=== PATIENT | male | born 1950 | race Caucasian/White ===

== ENCOUNTER 2020-02-27 16:41 | Emergency (ER) | payer MEDICARE, OTHER ==
--- NOTE | 2020-02-27 17:37 | ED ---
General Adult HPI - General Chief complaint: Shortness of Breath Stated complaint: SOB Time Seen by Provider: 02/27/20 17:07 Source: patient Mode of arrival: ambulatory Limitations: no limitations - History of Present Illness Initial comments: Dictation was produced using [employer] dictation software. please excuse any grammatical, word or spelling errors. This patient was cared for during a federal and state declared state of emergency secondary to Covid 19 Chief Complaint: 69-year-old male presents with weakness, cough History of Present Illness: Patient is 69-year-old male who has past medical history of CVA, hypertension and remote history of smoking. He presents today with 4 days of symptoms of cough, chest pain. Patient also has generalized weakness. He came to the emergency department today because he had severe diarr hea. Patient states his diarrhea is nonbilious nonbloody and looks like water. Patient is exposed to. His family members were tested positive for rotavirus. Patient has any short of breath. He does report some mild sharp chest pain and congestion. He does have a cough does not productive sputum. The ROS documented in this emergency department record has been reviewed and confirmed by me. Those systems with pertinent positive or negative responses have been documented in the HPI. All other systems are other negative and/or noncontributory. PHYSICAL EXAM: General Impression: Alert and oriented x3, not in acute distress HEENT: Normocephalic atraumatic, extra-ocular movements intact, pupils equal and reactive to light bilaterally, mucous membranes moist. Cardiovascular: Heart regular rate and rhythm Chest: Able to complete full sentences, no retractions, no tachypnea Abdomen: abdomen soft, non-tender, non-distended, no organomegaly Musculoskeletal: Pulses present and equal in all extremities, no peripheral edema Motor: no focal deficits noted Neurological: CN II-XII grossly intact, no focal motor or sensory deficits noted, no truncal ataxia Skin: Intact with no visualized rashes Psych: Normal affect and mood ED course: 69 y Old male presents with constitutional symptoms. Considering he has family members that he is exposed to selective. Patient has chronic virus. Vital signs upon arrival shows her to 100.2, oxygen of 94% on room air, rest of vital signs within acceptable limits. Laboratory evaluation obtained. CBC is unremarkable. Coag panel is negative. D-dimer is elevated 1.11. Sodium was 129, rest of metabolic panel are within acceptable limits. His LDH is elevated 1124, CRP is 37.5. Patient's rapid coronavirus test is positive. Chest x-ray shows no radiographically evidence of significant infiltrate. Patient is not hypoxic. He is not showing signs of respiratory distress. Clinical presentation consistent with Covid 19. Disposition options were discussed with patient. Is recommended that patient be admitted due to his age and comorbidi ties. However he wants to be discharged because he feels like he cannot get comfortable at home. Discussed with patient that the housing manager being admitted to the hospital is that if he does become hypoxic in acute phase he is in a medical facility where he can be treated immediately and given supplemental oxygen or any other therapies. Patient states that he thinks he may have a pulse oximeter at home and he also has his family at home. He was discharged and does have transportation available to him to come back to the emergency department if he starts to get worse. Patient is more agreeable with being discharged is a disposition as post sustaining be admitted. Patient given 6 more grams of Decadron. Patient will be discharged. EKG interpretation: Ventricular rate, normal sinus rhythm,. Interval 182, QRS 70, QTc 447. No HI prolongation, no QTC prolongation, no ST or T-wave changes noted. Overall, this EKG is unremarkable - Related Data Allergies Allergy/AdvReac Type Severity Reaction Status Date / Time No Known Allergies Allergy Verified 02/27/20 17:06 Review of Systems ROS Statement: Those systems with pertinent positive or pertinent negative responses have been documented in the HPI. ROS Other: All systems not noted in ROS Statement are negative. Past Medical History Past Medical History: CVA/TIA, Hypertension History of Any Multi-Drug Resistant Organisms: None Reported Past Surgical History: No Surgical Hx Reported Past Psychological History: No Psychological Hx Reported Smoking Status: Never smoker Past Alcohol Use History: None Reported Past Drug Use History: None Reported General Exam Limitations: no limitations Course Vital Signs 02/27/20 02/27/20 02/27/20 17:00 17:20 17:51 Temperature 100.2 F H 101.6 F H Pulse Rate 83 Respiratory 20 20 Rate Blood Pressure 116/70 O2 Sat by Pulse 94 L Oximetry 02/27/20 02/27/20 18:33 19:30 Temperature Pulse Rate 82 74 Respiratory 18 18 Rate Blood Pressure 125/77 100/71 O2 Sat by Pulse 96 97 Oximetry Medical Decision Making - Lab Data Result diagrams: 02/27/20 18:02 02/27/20 18:02 Lab Results 02/27/20 02/27/20 02/27/20 Range/Units 18:02 18:02 18:02 WBC 7.4 (3.8-10.6) k/uL RBC 5.26 (4.30-5.90) m/uL Hgb 15.7 (13.0-17.5) gm/dL Hct 46.2 (39.0-53.0) % MCV 87.9 (80.0-100.0) fL MCH 29.9 (25.0-35.0) pg MCHC 34.1 (31.0-37.0) g/dL RDW 13.3 (11.5-15.5) % Plt Count 146 L (150-450) k/uL MPV 9.1 Neutrophils % 77 % Lymphocytes % 17 % Monocytes % 4 % Eosinophils % 1 % Basophils % 1 % Neutrophils # 5.7 (1.3-7.7) k/uL Lymphocytes # 1.3 (1.0-4.8) k/uL Monocytes # 0.3 (0-1.0) k/uL Eosinophils # 0.0 (0-0.7) k/uL Basophils # 0.1 (0-0.2) k/uL PT 10.5 (9.0-12.0) sec INR 1.0 (<1.2) APTT 22.9 (22.0-30.0) sec D-Dimer 1.11 H (<0.60) mg/L FEU Sodium 129 L (137-145) mmol/L Potassium 4.7 (3.5-5.1) mmol/L Chloride 100 (98-107) mmol/L Carbon Dioxide 18 L (22-30) mmol/L Anion Gap 11 mmol/L BUN 24 H (9-20) mg/dL Creatinine 1.14 (0.66-1.25) mg/dL Est GFR (CKD-EPI)AfAm 76 (>60 ml/min/1.73 sqM) Est GFR (CKD-EPI)NonAf 66 (>60 ml/min/1.73 sqM) Glucose 138 H (74-99) mg/dL Plasma Lactic Acid Rivas (0.7-2.0) mmol/L Calcium 8.6 (8.4-10.2) mg/dL Magnesium 1.9 (1.6-2.3) mg/dL Total Bilirubin 0.7 (0.2-1.3) mg/dL AST 56 (17-59) U/L ALT 33 (4-49) U/L Alkaline Phosphatase 58 (38-126) U/L Lactate Dehydrogenase 1124 H (313-618) U/L C-Reactive Protein 37.5 H (<10.0) mg/L Total Protein 6.8 (6.3-8.2) g/dL Albumin 3.8 (3.5-5.0) g/dL Coronavirus (PCR) (Not Detectd) 02/27/20 02/27/20 Range/Units 18:02 18:02 WBC (3.8-10.6) k/uL RBC (4.30-5.90) m/uL Hgb (13.0-17.5) gm/dL Hct (39.0-53.0) % MCV (80.0-100.0) fL MCH (25.0-35.0) pg MCHC (31.0-37.0) g/dL RDW (11.5-15.5) % Plt Count (150-450) k/uL MPV Neutrophils % % Lymphocytes % % Monocytes % % Eosinophils % % Basophils % % Neutrophils # (1.3-7.7) k/uL Lymphocytes # (1.0-4.8) k/uL Monocytes # (0-1.0) k/uL Eosinophils # (0-0.7) k/uL Basophils # (0-0.2) k/uL PT (9.0-12.0) sec INR (<1.2) APTT (22.0-30.0) sec D-Dimer (<0.60) mg/L FEU Sodium (137-145) mmol/L Potassium (3.5-5.1) mmol/L Chloride (98-107) mmol/L Carbon Dioxide (22-30) mmol/L Anion Gap mmol/L BUN (9-20) mg/dL Creatinine (0.66-1.25) mg/dL Est GFR (CKD-EPI)AfAm (>60 ml/min/1.73 sqM) Est GFR (CKD-EPI)NonAf (>60 ml/min/1.73 sqM) Glucose (74-99) mg/dL Plasma Lactic Acid Rivas 1.6 (0.7-2.0) mmol/L Calcium (8.4-10.2) mg/dL Magnesium (1.6-2.3) mg/dL Total Bilirubin (0.2-1.3) mg/dL AST (17-59) U/L ALT (4-49) U/L Alkaline Phosphatase (38-126) U/L Lactate Dehydrogenase (313-618) U/L C-Reactive Protein (<10.0) mg/L Total Protein (6.3-8.2) g/dL Albumin (3.5-5.0) g/dL Coronavirus (PCR) Detected A (Not Detectd) Disposition Clinical Impression: COVID-19 Disposition: HOME SELF-CARE Condition: Fair Instructions (If sedation given, give patient instructions): Viral Pneumonia (ED) Additional Instructions: Today you were evaluated for symptoms consistent with upper respiratory infection. There is concern that perhaps your symptomatology may represent Covid 19. Your are stable for discharge, however it is instructed to to seek immediate medical attention especially if you develop worsening symptoms especially respiratory distress. In the meantime please remain in quarantine for 14 days. For any other questions please contact Jacqui for here in emergency department or [facility] at [phone] Is patient prescribed a controlled substance at d/c from ED?: No Referrals: None,Stated [Primary Care Provider] - 1-2 days Time of Disposition: 19:49
[2020-02-27 17:51] VITALS: TEMP 101.6
[2020-02-27] MEDS ORDERED: ACETAMINOPHEN TAB 500 MG TAB PO STA (17:52)
[2020-02-27 18:17] LABS: Basophils # (A) 0.1 k/uL (0-0.2); Basophils % (A) 1 %; Eosinophils % (A) 1 %; HCT 46.2 % (39.0-53.0); HGB 15.7 gm/dL (13.0-17.5); Lymphocytes # (A) 1.3 k/uL (1.0-4.8); Lymphocytes % (A) 17 %; MCH 29.9 pg (25.0-35.0); MCHC 34.1 g/dL (31.0-37.0); MCV 87.9 fL (80.0-100.0); Mean Platelet Volume 9.1; Monocytes # (A) 0.3 k/uL (0-1.0); Monocytes % (A) 4 %; Neutrophils # (A) 5.7 k/uL (1.3-7.7); Neutrophils % (A) 77 %; Platelet Count 146 k/uL (150-450); RBC 5.26 m/uL (4.30-5.90); RDW 13.3 % (11.5-15.5); WBC 7.4 k/uL (3.8-10.6)
[2020-02-27 18:30] LABS: Partial Thromboplastin Time 22.9 sec (22.0-30.0); Prothrombin Time 10.5 sec (9.0-12.0)
[2020-02-27 18:31] LABS: Albumin 3.8 g/dL (3.5-5.0); Calcium 8.6 mg/dL (8.4-10.2); Magnesium 1.9 mg/dL (1.6-2.3); Potassium 4.7 mmol/L (3.5-5.1); Total Bilirubin 0.7 mg/dL (0.2-1.3); Total Protein 6.8 g/dL (6.3-8.2)
[2020-02-27 18:33] VITALS: RESP 18
[2020-02-27 18:33] LABS: D-Dimer 1.11 mg/L FEU (<0.60)
--- NOTE | 2020-02-27 18:41 | XR ---
EXAMINATION TYPE: XR chest 1V portable DATE OF EXAM: 02/27/2020 COMPARISON: NONE HISTORY: Cough and fever. TECHNIQUE: Single frontal view of the chest is obtained. FINDINGS: There is no focal air space opacity, pleural effusion, or pneumothorax seen. The cardiac silhouette size is within normal limits. The osseous structures are intact. IMPRESSION: No radiographic evidence of significant infiltrate.
[2020-02-27 18:51] LABS: C Reactive Protein 37.5 mg/L (<10.0)
[2020-02-27] MEDS ORDERED: DEXAMETHASONE SOD PHOSPHATE 10 MG/ML 1 ML VIAL IV STA (19:47)
[2020-02-27 20:01] VITALS: BP 103/79; PULSE 73
== END 2020-02-27 20:13 | disposition home or self-care (01) ==
LOC: EC 16:41
DX: U07.1 COVID-19 (principal); R79.1 Abnormal coagulation profile; R74.02 Elevation of levels of lactic acid dehydrogenase [LDH]; R79.89 Other specified abnormal findings of blood chemistry; I10 Essential (primary) hypertension; Z86.73 Personal history of transient ischemic attack (TIA), and cerebral infarction without residual deficits
CPT/HCPCS: 36415; 93005; 85379; 80053; 83605; 83615; 83735; 85025; 85610; 85730; 86140; 87040; 84145; 87635; 71045; 99285; 96374; J1100

== ENCOUNTER 2020-02-28 21:40 | Inpatient (IN) | payer MEDICARE, OTHER ==
[2020-02-28] MEDS ORDERED: LORazepam 2 MG/ML INJ IV STA (22:20)
[2020-02-28] MEDS ORDERED: ALBUTEROL HFA INHALER INHALATION STA (22:22)
[2020-02-28] MEDS ORDERED: ACETAMINOPHEN TAB 500 MG TAB PO STA (22:22)
[2020-02-28] MEDS ORDERED: SODIUM CHLORIDE 0.9% 1,000 ML IV ONE (22:22)
[2020-02-28 22:41] LABS: Basophils # (A) 0.1 k/uL (0-0.2); Basophils % (A) 1 %; Eosinophils % (A) 0 %; HCT 45.7 % (39.0-53.0); HGB 15.5 gm/dL (13.0-17.5); Lymphocytes % (A) 7 %; MCH 29.8 pg (25.0-35.0); MCHC 33.9 g/dL (31.0-37.0); MCV 87.8 fL (80.0-100.0); Mean Platelet Volume 9.9; Monocytes # (A) 0.4 k/uL (0-1.0); Monocytes % (A) 3 %; Neutrophils # (A) 12.4 k/uL (1.3-7.7); Neutrophils % (A) 88 %; Platelet Count 171 k/uL (150-450); RBC 5.21 m/uL (4.30-5.90); RDW 13.3 % (11.5-15.5)
--- NOTE | 2020-02-28 22:45 | ED ---
General Adult HPI - General Chief complaint: Shortness of Breath Stated complaint: COVID + Time Seen by Provider: 02/28/20 22:13 Source: patient, EMS, RN notes reviewed, old records reviewed Mode of arrival: EMS Limitations: no limitations - History of Present Illness Initial comments: Pt is a 69 [id number] male presents raise from same shortness of breath and anxiety. He tested positive for coronal virus infection yesterday. Patient reports that he does not wear oxygen. Denies any history of smoking. Patient reports had no nausea or vomiting. His main complaint is chest discomfort with breathing. Patient reports his cough has been nonproductive. Patient has had no Motrin or Tylenol yet today. - Related Data Home Medications Medication Instructions Recorded Confirmed Acetaminophen Tab [Tylenol Tab] 1,000 mg PO Q6H PRN 02/28/20 02/28/20 Ascorbic Acid [Vitamin C] 1,000 mg PO HS 02/28/20 02/28/20 Aspirin EC [Ecotrin] 325 mg PO HS 02/28/20 02/28/20 atenoloL [Atenolol] 25 mg PO HS 02/28/20 02/28/20 diphenhydrAMINE [Benadryl] 25 mg PO HS PRN 02/28/20 02/28/20 Allergies Allergy/AdvReac Type Severity Reaction Status Date / Time iodine Allergy Itching Verified 02/28/20 22:43 Iodine and Iodide Containing Allergy Itching Verified 02/28/20 22:43 Produc Oocztql-Vtt-Bbw Reductase Allergy Anaphylaxis Verified 02/28/20 22:43 Inhibitor Review of Systems ROS Statement: Those systems with pertinent positive or pertinent negative responses have been documented in the HPI. ROS Other: All systems not noted in ROS Statement are negative. Past Medical History Past Medical History: CVA/TIA, Hypertension History of Any Multi-Drug Resistant Organisms: None Reported Past Surgical History: No Surgical Hx Reported Past Psychological History: No Psychological Hx Reported Smoking Status: Never smoker Past Alcohol Use History: None Reported Past Drug Use History: None Reported General Exam - General Exam Comments Initial Comments: 69-year-old male. Patient is placed on 6 L of oxygen due to shortness of breath and is satting at 98%. Patient was found to be at 88% on room air. Patient is anxious. Limitations: no limitations General appearance: alert, in no apparent distress, anxious Head exam: Present: atraumatic, normocephalic, normal inspection Eye exam: Present: normal appearance, PERRL, EOMI. Absent: scleral icterus, conjunctival injection, periorbital swelling ENT exam: Present: normal exam, mucous membranes moist Neck exam: Present: normal inspection. Absent: tenderness, meningismus, lymphadenopathy Respiratory exam: Present: normal lung sounds bilaterally. Absent: respiratory distress, wheezes, rales, rhonchi, stridor Cardiovascular Exam: Present: regular rate, normal rhythm, normal heart sounds. Absent: systolic murmur, diastolic murmur, rubs, gallop, clicks GI/Abdominal exam: Present: soft, normal bowel sounds. Absent: distended, tenderness, guarding, rebound, rigid Extremities exam: Present: normal inspection, full ROM, normal capillary refill. Absent: tenderness, pedal edema, joint swelling, calf tenderness Back exam: Present: normal inspection Neurological exam: Present: alert, oriented X3, CN II-XII intact Psychiatric exam: Present: normal affect, normal mood Course Vital Signs 02/28/20 02/28/20 02/28/20 21:41 21:53 23:31 Temperature 99.6 F Pulse Rate 95 97 Respiratory 18 20 20 Rate Blood Pressure 119/77 104/81 O2 Sat by Pulse 96 98 Oximetry Medical Decision Making - Medical Decision Making This patient's a 61-year-old male diagnosed with kraus virus infection yesterday. Patient arrived to the emergency department anxious and very short of breath. He was placed on 6 L of oxygen and has been satting at 98%. Also is hyperventilating somewhat due to anxiety. After Ativan his breathing did somewhat improve. When oxygen was removed she did sat at a low 88%. Patient's labwork was reviewed to show increasing d-dimer. Patient had computed tomography scan completed today which shows no evidence of pulmonary embolus about multiple ground glass opacities consistent with kraus virus infection. Patient will be started on IV fluids and will admit the Patient for kraus virus protocol and will be started on Rocephin. I discussed the case with Dr. Milton Gilliam discussed the case with [facility]. - Lab Data Result diagrams: 02/28/20 22:28 02/28/20 22:28 Lab Results 02/28/20 02/28/20 02/28/20 Range/Units 22:28 22:28 22:28 WBC 14.0 H (3.8-10.6) k/uL RBC 5.21 (4.30-5.90) m/uL Hgb 15.5 (13.0-17.5) gm/dL Hct 45.7 (39.0-53.0) % MCV 87.8 (80.0-100.0) fL MCH 29.8 (25.0-35.0) pg MCHC 33.9 (31.0-37.0) g/dL RDW 13.3 (11.5-15.5) % Plt Count 171 (150-450) k/uL MPV 9.9 Neutrophils % 88 % Lymphocytes % 7 % Monocytes % 3 % Eosinophils % 0 % Basophils % 1 % Neutrophils # 12.4 H (1.3-7.7) k/uL Lymphocytes # 1.0 (1.0-4.8) k/uL Monocytes # 0.4 (0-1.0) k/uL Eosinophils # 0.0 (0-0.7) k/uL Basophils # 0.1 (0-0.2) k/uL PT 10.8 (9.0-12.0) sec INR 1.0 (<1.2) APTT 18.4 L (22.0-30.0) sec D-Dimer 1.62 H (<0.60) mg/L FEU Sodium 132 L (137-145) mmol/L Potassium 4.6 (3.5-5.1) mmol/L Chloride 101 (98-107) mmol/L Carbon Dioxide 17 L (22-30) mmol/L Anion Gap 14 mmol/L BUN 31 H (9-20) mg/dL Creatinine 1.09 (0.66-1.25) mg/dL Est GFR (CKD-EPI)AfAm 80 (>60 ml/min/1.73 sqM) Est GFR (CKD-EPI)NonAf 69 (>60 ml/min/1.73 sqM) Glucose 154 H (74-99) mg/dL Lactic Ac Sepsis Rflx Plasma Lactic Acid Rivas (0.7-2.0) mmol/L Calcium 8.6 (8.4-10.2) mg/dL Magnesium 1.9 (1.6-2.3) mg/dL Total Bilirubin 0.8 (0.2-1.3) mg/dL AST 50 (17-59) U/L ALT 31 (4-49) U/L Alkaline Phosphatase 60 (38-126) U/L Lactate Dehydrogenase 1339 H (313-618) U/L C-Reactive Protein 33.8 H (<10.0) mg/L Total Protein 6.8 (6.3-8.2) g/dL Albumin 3.7 (3.5-5.0) g/dL 02/28/20 02/28/20 Range/Units 22:28 23:02 WBC (3.8-10.6) k/uL RBC (4.30-5.90) m/uL Hgb (13.0-17.5) gm/dL Hct (39.0-53.0) % MCV (80.0-100.0) fL MCH (25.0-35.0) pg MCHC (31.0-37.0) g/dL RDW (11.5-15.5) % Plt Count (150-450) k/uL MPV Neutrophils % % Lymphocytes % % Monocytes % % Eosinophils % % Basophils % % Neutrophils # (1.3-7.7) k/uL Lymphocytes # (1.0-4.8) k/uL Monocytes # (0-1.0) k/uL Eosinophils # (0-0.7) k/uL Basophils # (0-0.2) k/uL PT (9.0-12.0) sec INR (<1.2) APTT (22.0-30.0) sec D-Dimer (<0.60) mg/L FEU Sodium (137-145) mmol/L Potassium (3.5-5.1) mmol/L Chloride (98-107) mmol/L Carbon Dioxide (22-30) mmol/L Anion Gap mmol/L BUN (9-20) mg/dL Creatinine (0.66-1.25) mg/dL Est GFR (CKD-EPI)AfAm (>60 ml/min/1.73 sqM) Est GFR (CKD-EPI)NonAf (>60 ml/min/1.73 sqM) Glucose (74-99) mg/dL Lactic Ac Sepsis Rflx Y Plasma Lactic Acid Rivas 3.5 H* (0.7-2.0) mmol/L Calcium (8.4-10.2) mg/dL Magnesium (1.6-2.3) mg/dL Total Bilirubin (0.2-1.3) mg/dL AST (17-59) U/L ALT (4-49) U/L Alkaline Phosphatase (38-126) U/L Lactate Dehydrogenase (313-618) U/L C-Reactive Protein (<10.0) mg/L Total Protein (6.3-8.2) g/dL Albumin (3.5-5.0) g/dL 02/28/20 22:46 EKG shows normal sinus rhythm normal EKG. Ventricular rate 91 bpm. Verbal is 176 no seconds. QS ration 76 most seconds. QT QTc is 350/440 ms. - Radiology Data Radiology results: report reviewed CT shows no pulmonary embolism. Ground glass opacities scattered throughout lung rigors and representing multifocal pneumonia. Pulmonary edema could potentially similar appearance. Bilateral lymphadenopathy reactive. Mild interstitial peripheral pneumonia slightly worse than yesterday. Disposition Clinical Impression: COVID-19, Hypoxia, Pneumonia, Anxiety Disposition: ADMITTED IP TO THIS HOSP Condition: Stable Is patient prescribed a controlled substance at d/c from ED?: No Referrals: None,Stated [Primary Care Provider] - 1-2 days Time of Disposition: 01:27
[2020-02-28 22:51] LABS: Albumin 3.7 g/dL (3.5-5.0); C Reactive Protein 33.8 mg/L (<10.0); Calcium 8.6 mg/dL (8.4-10.2); Magnesium 1.9 mg/dL (1.6-2.3); Potassium 4.6 mmol/L (3.5-5.1); Total Bilirubin 0.8 mg/dL (0.2-1.3); Total Protein 6.8 g/dL (6.3-8.2)
[2020-02-28 23:06] LABS: Prothrombin Time 10.8 sec (9.0-12.0)
--- NOTE | 2020-02-28 23:10 | XR ---
EXAMINATION TYPE: XR chest 1V portable DATE OF EXAM: 02/28/2020 COMPARISON: 02/27/2020 HISTORY: Pneumonia. Short of breath. TECHNIQUE: FINDINGS: There is some increased interstitial density in the periphery of both lungs and more on the right side. Heart and mediastinum are normal. There are no hilar masses. Costophrenic angles are jackie ar. IMPRESSION: There is some mild interstitial peripheral pneumonia slightly worse than yesterday.
[2020-02-28 23:12] LABS: Partial Thromboplastin Time 18.4 sec (22.0-30.0)
[2020-02-28 23:14] LABS: D-Dimer 1.62 mg/L FEU (<0.60)
[2020-02-28] MEDS: SODIUM CHLORIDE 0.9% 1,000 ML IV SCH (23:29)
[2020-02-29] MEDS ORDERED: diphenhydrAMINE 50 MG/ML 1 ML VIAL IVP STA (00:04)
[2020-02-29] MEDS ORDERED: FAMOTIDINE 20 MG/2 ML VIAL IV STA (00:04)
[2020-02-29] MEDS ORDERED: methylPREDNISolone SOD SUCCI 125 MG/2 ML VIAL IV STA (00:04)
--- NOTE | 2020-02-29 00:58 | CT ---
EXAM: CT Angiography Chest With Intravenous Contrast CLINICAL HISTORY: ITS.REASON CT Reason: positive dimer TECHNIQUE: Axial computed tomographic angiography images of the chest with intravenous contrast. CTDI is 18.07 mGy and DLP is 519.3 mGy-cm. This CT exam was performed using one or more of the following dose reduction techniques: automated exposure control, adjustment of the mA and/or kV according to patient size, and/or use of iterative reconstruction technique. MIP reconstructed images were created and reviewed. COMPARISON: None. FINDINGS: Pulmonary arteries: Unremarkable. No pulmonary embolism. Aorta: No acute findings. No thoracic aortic aneurysm. Lungs: Groundglass opacities scattered throughout the lungs. Mild paraseptal and centrilobular emphysematous change of the lungs. Pleural space: Unremarkable. No significant effusion. No pneumothorax. Heart: Coronary artery atherosclerotic calcifications. No significant pericardial effusion. No evidence of RV dysfunction. Mediastinum: Bilateral hilar lymphadenopathy, most likely reactive. Thyroid: Atrophic thyroid gland. Bones/joints: No acute fracture. No dislocation. Degenerative change in the spine. Soft tissues: Unremarkable. Lymph nodes: See above. Liver: Hepatic steatosis. IMPRESSION: 1. No pulmonary embolism. 2. Groundglass opacities scattered throughout the lungs. This may represent multifocal pneumonia in the appropriate clinical scenario. Pulmonary edema could potentially have a similar appearance. 3. Bilateral hilar lymphadenopathy, most likely reactive. Manoj metastasis and lymphoproliferative disease cannot entirely be excluded. 4. Coronary artery atherosclerotic calcifications.
[2020-02-29] MEDS ORDERED: ACETAMINOPHEN TAB 500 MG TAB PO PRN (01:27)
[2020-02-29] MEDS: SODIUM CHLORIDE 0.9% 1,000 ML IV SCH ×2 (06:14→14:47)
[2020-02-29] MEDS: ALBUTEROL HFA INHALER INHALATION PRN ×3 (09:06→19:25)
[2020-02-29 10:07] LABS: Ferritin 819.3 ng/mL (22.0-322.0)
--- NOTE | 2020-02-29 10:44 | P.HPIM ---
History of Present Illness 69-year-old male came in with comments of shortness of breath. Patient was test is positive for covid mid 19 yesterday. Patient was discharged home shortly became short of breath came back to the hospital. Patient is presently on 3 L of oxygen. Patient symptoms has been going on for about 5-6 days patient was having chest discomfort and difficulty breathing patient is mildly hyponatremic. And had a CT angios the chest chest which did not show any pulmonary embolism which did show ground gap is obese days and a paced is consistent with Covid 19. Vision has bilateral hilar lymphadenopathy. Review of Systems REVIEW OF SYSTEMS: CONSTITUTIONAL: No fever, no malaise, no fatigue. HEENT: No recent visual problems or hearing problems. Denied any sore throat. CARDIOVASCULAR: No chest pain, orthopnea, PND, no palpitations, no syncope. PULMONARY: no hemoptysis. GASTROINTESTINAL: No diarrhea, no nausea, no vomiting, no abdominal pain. NEUROLOGICAL: No headaches, no weakness, no numbness. HEMATOLOGICAL: Denies any bleeding or petechiae. GENITOURINARY: Denies any burning micturition, frequency, or urgency. MUSCULOSKELETAL/RHEUMATOLOGICAL: Denies any joint pain, swelling, or any muscle pain. ENDOCRINE: Denies any polyuria or polydipsia. The rest of the 14-point review of systems is negative. Past Medical History Past Medical History: CVA/TIA, Hypertension History of Any Multi-Drug Resistant Organisms: None Reported Past Surgical History: No Surgical Hx Reported Past Psychological History: No Psychological Hx Reported Smoking Status: Never smoker Past Alcohol Use History: None Reported Past Drug Use History: None Reported Medications and Allergies Home Medications Medication Instructions Recorded Confirmed Type Acetaminophen Tab [Tylenol Tab] 1,000 mg PO Q6H PRN 02/28/20 02/28/20 History Ascorbic Acid [Vitamin C] 1,000 mg PO HS 02/28/20 02/28/20 History Aspirin EC [Ecotrin] 325 mg PO HS 02/28/20 02/28/20 History atenoloL [Atenolol] 25 mg PO HS 02/28/20 02/28/20 History diphenhydrAMINE [Benadryl] 25 mg PO HS PRN 02/28/20 02/28/20 History Allergies Allergy/AdvReac Type Severity Reaction Status Date / Time iodine Allergy Itching Verified 02/28/20 22:43 Iodine and Iodide Containing Allergy Itching Verified 02/28/20 22:43 Produc Plvxbhz-Udr-Hmb Reductase Allergy Anaphylaxis Verified 02/28/20 22:43 Inhibitor Physical Exam Vitals: Vital Signs Temp Pulse Resp BP Pulse Ox 02/29/20 09:18 97.7 F 86 20 109/57 97 02/29/20 09:07 96 02/29/20 06:14 81 20 109/58 98 02/29/20 02:40 79 20 107/66 98 02/28/20 23:31 97 20 104/81 98 02/28/20 21:53 20 02/28/20 21:41 99.6 F 95 18 119/77 96 Intake and Output 02/28/20 02/29/20 02/29/20 22:59 06:59 14:59 Other: Weight 88.451 kg PHYSICAL EXAMINATION: GENERAL: The patient is alert and oriented x3, not in any acute distress. Well developed, well nourished. HEENT: Pupils are round and equally reacting to light. EOMI. No scleral icterus. No conjunctival pallor. Normocephalic, atraumatic. No pharyngeal erythema. No thyromegaly. CARDIOVASCULAR: S1 and S2 present. No murmurs, rubs, or gallops. PULMONARY: Bilateral crackles in the decreased air entry into bilateral lung [place] ABDOMEN: Soft, nontender, nondistended, normoactive bowel sounds. No palpable organomegaly. MUSCULOSKELETAL: No joint swelling or deformity. EXTREMITIES: No cyanosis, clubbing, or pedal edema. NEUROLOGICAL: Gross neurological examination did not reveal any focal deficits. SKIN: No rashes. Results CBC & Chem 7: 02/28/20 22:28 02/28/20 22:28 Labs: Abnormal Lab Results - Last 24 Hours (Table) 02/28/20 02/28/20 02/28/20 Range/Units 22:28 22:28 22:28 WBC 14.0 H (3.8-10.6) k/uL Neutrophils # 12.4 H (1.3-7.7) k/uL APTT 18.4 L (22.0-30.0) sec D-Dimer 1.62 H (<0.60) mg/L FEU Sodium 132 L (137-145) mmol/L Carbon Dioxide 17 L (22-30) mmol/L BUN 31 H (9-20) mg/dL Glucose 154 H (74-99) mg/dL Plasma Lactic Acid Rivas (0.7-2.0) mmol/L Ferritin 819.3 H (22.0-322.0) ng/mL Lactate Dehydrogenase 1339 H (313-618) U/L C-Reactive Protein 33.8 H (<10.0) mg/L 11// Range/Units 22:28 WBC (3.8-10.6) k/uL Neutrophils # (1.3-7.7) k/uL APTT (22.0-30.0) sec D-Dimer (<0.60) mg/L FEU Sodium (137-145) mmol/L Carbon Dioxide (22-30) mmol/L BUN (9-20) mg/dL Glucose (74-99) mg/dL Plasma Lactic Acid Rivas 3.5 H* (0.7-2.0) mmol/L Ferritin (22.0-322.0) ng/mL Lactate Dehydrogenase (313-618) U/L C-Reactive Protein (<10.0) mg/L Assessment and Plan Plan: -Acute hypoxic respiratory failure secondary to covid 19 pneumonia. Patient was started on Decadron may need to remdesivir, infectious disease will be consulted will order inflammatory markers. CT angios the chest did not show any PE patient will be started on Lovenox. -Hypovolemic hyponatremia: Secondary to diarrhea from coronavirus, patient will be continued on IV fluids and repeat basic metabolic profile tomorrow -Hypertension -History of CVA /TIA in the past DVT and GI prophylaxis as mentioned above
[2020-02-29] MEDS: ENOXAPARIN 40 MG/0.4 ML SYRINGE SQ SCH (13:56)
[2020-02-29] MEDS: DEXAMETHASONE SOD PHOSPHATE 10 MG/ML 1 ML VIAL IV SCH (13:56)
[2020-02-29] MEDS ORDERED: LORazepam 2 MG/ML INJ IV STA (14:23)
[2020-02-29] MEDS ORDERED: AZITHROMYCIN 500 MG in SODIUM CHLORIDE 0.9% 250 ML IVPB STA (14:43)
[2020-02-29] MEDS ORDERED: REMDESIVIR 200 MG in SODIUM CHLORIDE 0.9% 250 ML IVPB ONE (16:00)
[2020-03-01] MEDS ORDERED: LORazepam 2 MG/ML INJ IM PRN (03:00)
[2020-03-01] MEDS: LORazepam 2 MG/ML INJ IV PRN ×3 (03:37→20:42)
--- NOTE | 2020-03-01 04:30 | CONS ---
CONSULTATION DATE OF SERVICE: 02/29/2020 REASON FOR CONSULTATION: COVID-19 pneumonia. HISTORY OF PRESENT ILLNESS: The patient is a 69-year-old, male presenting to the ER at [facility] last night for evaluation of increasing shortness of breath and anxiety. Apparently the patient's daughter, her and son all have been sick with COVID-19 infection at home. The patient started having increasing shortness of breath about a week ago and has been mostly shortness of breath and chest discomfort. The patient also has a cough, which is mild to moderate in intensity and dry in nature. The patient did have some nausea, but no vomiting. Denies any abdominal pain or diarrhea. Apparently the patient was diagnosed with COVID-19 infection yesterday with worsening shortness of breath. The patient admitted to the hospital. On arrival to the ER, the patient did have a low-grade fever of 99.6. The patient was hypoxic requiring supplemental oxygen. He was 89% on room air, currently 96% on 4 L nasal cannula. The patient did have white count of 14 with left shift. D-dimer was 1.62. Creatinine was normal. Lactic acid 3.5 repeat is 1.7. Ferritin is 819. LDH is 1339 and CRP of 33.8. The patient did have a chest x-ray which shows mild anterior peripheral pneumonia slightly worse than yesterday. The patient did have a CT angiogram of the chest that was negative for PE, did shows bilateral ground-glass opacities. The patient has been admitted to the hospital. Infectious Disease was consulted with concern for underlying COVID-19 pneumonia. REVIEW OF SYSTEMS: Positive points have been mentioned in HPI. Rest of systems are negative. PAST MEDICAL HISTORY: CVA, TIA, hypertension. PAST SURGICAL HISTORY: No surgeries. SOCIAL HISTORY: Denies smoking drinking or drug use. FAMILY HISTORY: Multiple family members with COVID-19 infection. MEDICATIONS: Medications include the patient is currently on Ventolin, Tylenol, , Zithromax. PHYSICAL EXAMINATION: Blood pressure 103/58 with a pulse of 88, temperature 98. He is 96% on 4 L nasal cannula. General description is an elderly male lying in bed in no distress. No tachypnea or accessory muscle of respiration use. HEENT EXAMINATION: No pallor or scleral icterus. Oral mucous membranes dry. NECK: Trachea central. No thyromegaly. LUNGS: Unlabored breathing, decreased intensity of breath sounds. No wheeze or crackle. HEART: S1, S2. Regular rate and rhythm. ABDOMEN: Soft, no tenderness. No guarding or rigidity. EXTREMITIES: No edema of feet. SKIN EXAMINATION: No rash or mass palpable. NEUROLOGICAL: Patient is awake, alert, oriented x3. Mood and affect normal. LABS: Hemoglobin is 15.5, white count 14. D-dimer is 1.62. LDH 1339. CRP is 33.8. DIAGNOSTIC IMPRESSION: Patient admitted to the hospital with increasing shortness of breath, hypoxemia, elevated inflammatory marker with evidence of bilateral ground-glass opacities likely acute COVID-19 infection in this patient with three other family members have similar illness and currently failing outpatient treatment. PLAN: 1. We will start the patient on remdesivir protocol because of his hypoxemia and less than one week he still has symptoms. 2. Dexamethasone 6 mg daily, Lovenox and zinc sulfate. 3. Droplet isolation and respiratory support. 4. We will follow on his clinical condition and further adjust medication if needed. Thank you for this consultation. Will follow this patient along with you. MMODL / IJN: [id number] /
[2020-03-01] MEDS: SODIUM CHLORIDE 0.9% 1,000 ML IV SCH ×2 (04:44→11:00)
[2020-03-01 06:03] LABS: Basophils % (A) 0 %; Eosinophils % (A) 0 %; HCT 38.6 % (39.0-53.0); Lymphocytes % (A) 10 %; MCH 30.1 pg (25.0-35.0); MCHC 33.6 g/dL (31.0-37.0); MCV 89.6 fL (80.0-100.0); Monocytes # (A) 0.4 k/uL (0-1.0); Monocytes % (A) 4 %; Neutrophils # (A) 8.4 k/uL (1.3-7.7); Neutrophils % (A) 85 %; Platelet Count 134 k/uL (150-450); RBC 4.31 m/uL (4.30-5.90); RDW 13.7 % (11.5-15.5); WBC 9.9 k/uL (3.8-10.6)
[2020-03-01] MEDS: ALBUTEROL HFA INHALER INHALATION PRN ×3 (08:29→20:52)
[2020-03-01] MEDS ORDERED: AZITHROMYCIN 250 MG TAB PO SCH (09:00)
[2020-03-01] MEDS: ENOXAPARIN 40 MG/0.4 ML SYRINGE SQ SCH (10:55)
[2020-03-01] MEDS: DEXAMETHASONE SOD PHOSPHATE 10 MG/ML 1 ML VIAL IV SCH (10:55)
--- NOTE | 2020-03-01 11:19 | P.CNPUL ---
History of Present Illness Consult date: 03/01/20 Reason for consult: dyspnea, cough, hypoxemia, pneumonia Chief complaint: Cough shortness of breath History of present illness: This is a 69-year-old male with significant history of TIA and hypertension with hypertensive cardiovascular disease well controlled came into the hospital with increasing shortness of breath and desaturation, patient was diagnosed with Covid 19 pneumonia 2 days ago, initially patient was on 3 L oxygen, lately have been on nonrebreather mask saturation is 90-94% anxious, computed tomography scan shows bilateral groundglass attenuation, chest x-ray shows prominent interstitium slightly worse compared to prior exam, patient has elevated inflammatory parameters, patient has been appropriately started on Decadron, REM does wear, Lovenox and zinc, he is also placed on respiratory and droplet isolation, latest oxygen saturation is 94% on 15 L nonrebreather mask Review of Systems All systems: negative Past Medical History Past Medical History: CVA/TIA, Hypertension History of Any Multi-Drug Resistant Organisms: None Reported Past Surgical History: No Surgical Hx Reported Past Psychological History: No Psychological Hx Reported Smoking Status: Never smoker Past Alcohol Use History: None Reported Past Drug Use History: None Reported Medications and Allergies Home Medications Medication Instructions Recorded Confirmed Type Acetaminophen Tab [Tylenol Tab] 1,000 mg PO Q6H PRN 02/28/20 02/28/20 History Ascorbic Acid [Vitamin C] 1,000 mg PO HS 02/28/20 02/28/20 History Aspirin EC [Ecotrin] 325 mg PO HS 02/28/20 02/28/20 History atenoloL [Atenolol] 25 mg PO HS 02/28/20 02/28/20 History diphenhydrAMINE [Benadryl] 25 mg PO HS PRN 02/28/20 02/28/20 History Allergies Allergy/AdvReac Type Severity Reaction Status Date / Time iodine Allergy Itching Verified 02/28/20 22:43 Iodine and Iodide Containing Allergy Itching Verified 02/28/20 22:43 Produc [id number] Reductase Allergy Anaphylaxis Verified 02/28/20 22:43 Inhibitor Physical Exam Vitals: Vital Signs Temp Pulse Pulse Resp BP BP Pulse Ox 03/01/20 07:00 98.6 F 92 21 120/63 94 L 02/29/20 23:00 97.5 F L 80 16 118/73 96 02/29/20 20:57 98.0 F 88 18 103/58 96 02/29/20 19:19 22 02/29/20 18:56 97.8 F 92 20 120/68 95 02/29/20 16:44 97.6 F 88 18 111/71 96 02/29/20 15:00 83 18 96 02/29/20 14:00 82 22 126/86 95 02/29/20 13:33 97.9 F 81 22 106/73 89 L Intake and Output 02/29/20 03/01/20 03/01/20 22:59 06:59 14:59 Intake Total 1200 250 Output Total 300 Balance 1200 -50 Intake: Amount of Fluid Infused ( 1000 ml) Intake, IV Titration 200 Amount Sodium Chloride 0.9% 1, 200 000 ml @ 100 mls/hr IV . Q10H [id number] Rx#:[id number] Oral 250 Output: Urine 300 - Constitutional General appearance: average body habitus, disheveled - EENT Eyes: EOMI, PERRLA Ears: bilateral: normal - Neck Neck: normal ROM Carotids: bilateral: upstroke normal Thyroid: bilateral: normal size - Respiratory Respiratory: bilateral: CTA - Cardiovascular Rhythm: regular Heart sounds: normal: S1, S2 - Gastrointestinal General gastrointestinal: normal bowel sounds - Neurologic Neurologic: CNII-XII intact - Musculoskeletal Musculoskeletal: gait normal, generalized weakness, strength equal bilaterally - Psychiatric Psychiatric: A&O x's 3, appropriate affect, intact judgment & insight Results - Laboratory Findings CBC and BMP: 03/01/20 05:15 02/28/20 22:28 PT/INR, D-dimer PT 10.8 sec (9.0-12.0) 02/28/20 22:28 INR 1.0 (<1.2) 02/28/20 22:28 D-Dimer 1.62 mg/L FEU (<0.60) H 02/28/20 22:28 Abnormal lab findings: Abnormal Labs 02/28/20 02/28/20 02/28/20 22:28 22:28 22:28 WBC 14.0 H Hct Plt Count Neutrophils # 12.4 H APTT 18.4 L D-Dimer 1.62 H Sodium 132 L Carbon Dioxide 17 L BUN 31 H Glucose 154 H Plasma Lactic Acid Rivas Ferritin 819.3 H Lactate Dehydrogenase 1339 H C-Reactive Protein 33.8 H Procalcitonin 02/28/20 02/28/20 03/01/20 22:28 22:28 05:15 WBC Hct 38.6 L Plt Count 134 L Neutrophils # 8.4 H APTT D-Dimer Sodium Carbon Dioxide BUN Glucose Plasma Lactic Acid Rivas 3.5 H* Ferritin Lactate Dehydrogenase C-Reactive Protein Procalcitonin 0.18 H - Diagnostic Findings Chest x-ray: report reviewed, image reviewed CT scan - chest: report reviewed, image reviewed Assessment and Plan Assessment: Acute hypoxic respiratory failure Covid 19 pneumonia with groundglass attenuation on CT and interstitial infiltrate bilaterally on x-ray Mild hyponatremia likely hypovolemic isotonic hyponatremia History of hypertension hypertensive cardiovascular disease Plan: Continue REM doesn't wear as per protocol for 5 days Continue oxygen to keep saturation over 88 percent and above Prone positioning Deep breathing exercises incentive spirometry Continue supportive care Continue anticoagulation Continue Remdesivir for 5 days Continue Hexadrol for 10 days Time with Patient: Greater than 30
--- NOTE | 2020-03-01 15:33 | P.PN ---
Subjective Progress Note Date: 03/01/20 69-year-old male came in with comments of shortness of breath. Patient was test is positive for covid mid 19 yesterday. Patient was discharged home shortly became short of breath came back to the hospital. Patient is presently on 3 L of oxygen. Patient symptoms has been going on for about 5-6 days patient was having chest discomfort and difficulty breathing patient is mildly hyponatremic. And had a CT angios the chest chest which did not show any pulmonary embolism which did show ground gap is obese days and a paced is consistent with Covid 19. Vision has bilateral hilar lymphadenopathy. 03/01/2020 Patient is seen and evaluated and follow-up and continues to have shortness of breath and is currently maintained on a nonrebreather and was experiencing some anxiety due to shortness of breath. Pulmonary following an anti-anxiety medications ordered. Patient's white blood count improved to 9.9 today. She is maintained on Zithromax along with dexamethasone, Lovenox, zinc, and remdesivir and will continue at this time. Discussed with nursing staff about weaning off of oxygen as he does not normally wear oxygen at home. Discussed with the patient increasing activity as tolerated. Review of systems: Constitutional: Reports fatigue, no reports of fever, or chills Cardiovascular: No reports of chest pain or palpitations Respiratory: Reports shortness of breath and cough GI: No reports of nausea, vomiting, or diarrhea, reports decreased appetite : No reports of dysuria or retention Neurovascular: reports generalized weakness All medications have been reviewed Objective - Vital Signs Vital signs: Vital Signs Temp 99.3 F 03/01/20 12:29 Pulse 88 03/01/20 12:29 Resp 21 03/01/20 07:00 BP 111/64 03/01/20 12:29 Pulse Ox 87 L 03/01/20 12:53 Intake & Output 02/29/20 03/01/20 03/01/20 18:59 06:59 18:59 Intake Total 1450 Output Total 300 Balance 1150 Intake: Amount of Fluid Infused ( 1000 ml) Intake, IV Titration 200 Amount Sodium Chloride 0.9% 1, 200 000 ml @ 100 mls/hr IV . Q10H [facility] Rx#:[id number] Oral 250 Output: Urine 300 - Exam GENERAL: The patient is alert and oriented x3, not in any acute distress. Anxious. Well developed, well nourished. HEENT: Pupils are round and equally reacting to light. EOMI. No scleral icterus. No conjunctival pallor. Normocephalic, atraumatic. No pharyngeal erythema. No thyromegaly. CARDIOVASCULAR: S1 and S2 present. No murmurs, rubs, or gallops. PULMONARY: Bilateral crackles in the decreased air entry into bilateral lung burnham, nonrebreather noted on exam ABDOMEN: Soft, nontender, nondistended, normoactive bowel sounds. No palpable organomegaly. MUSCULOSKELETAL: No joint swelling or deformity. EXTREMITIES: No cyanosis, clubbing, or pedal edema. NEUROLOGICAL: Gross neurological examination did not reveal any focal deficits. SKIN: No rashes. - Labs CBC & Chem 7: 03/01/20 05:15 02/28/20 22:28 Labs: Abnormal Lab Results - Last 24 Hours (Table) 03/01/20 Range/Units 05:15 Hct 38.6 L (39.0-53.0) % Plt Count 134 L (150-450) k/uL Neutrophils # 8.4 H (1.3-7.7) k/uL Microbiology - Last 24 Hours (Table) 02/28/20 23:22 Blood Culture - Preliminary Blood No Growth after 24 hours Assessment and Plan Assessment: -Acute hypoxic respiratory failure secondary to covid 19 pneumonia. Patient was started on Decadron. remdesivir initiated, and patient is also on Zithromax. infectious disease following. -Hypovolemic hyponatremia: Secondary to diarrhea from coronavirus, patient will be continued on IV fluids and repeat basic metabolic profile tomorrow -Hypertension -History of CVA /TIA in the past -DVT prophylaxis with Lovenox -GI prophylaxis: Pepcid Plan: Continue current medications. Continue to attempt to wean off oxygen and incr ease activity as tolerated. Will repeat a.m. labs. Further recommendations to follow.
[2020-03-01] MEDS: REMDESIVIR 100 MG in SODIUM CHLORIDE 0.9% 250 ML IVPB SCH (17:39)
[2020-03-01] MEDS: FAMOTIDINE 20 MG TAB PO SCH (20:42)
[2020-03-01] MEDS: atenoloL 25 MG TAB PO SCH (20:43)
[2020-03-02] MEDS: SODIUM CHLORIDE 0.9% 1,000 ML IV SCH ×3 (00:34→15:47)
[2020-03-02] MEDS: diphenhydrAMINE 25 MG CAP PO PRN ×2 (00:34→21:26)
--- NOTE | 2020-03-02 01:56 | PN ---
PROGRESS NOTE DATE OF SERVICE: 03/01/2020 REASON FOR FOLLOWUP: Acute COVID-19 pneumonia. INTERVAL HISTORY: The patient is currently afebrile. Mentioned slightly breathing comfortably, still requiring high-flow nasal cannula oxygen. No chest pain. Did have a cough. No sputum. No abdominal pain or diarrhea. PHYSICAL EXAMINATION: Blood pressure 128/74 with a pulse of 89, temperature 97.9. He is 90% on 10 L high-flow oxygen. General description is an elderly male lying in bed in no distress. RESPIRATORY SYSTEM: Unlabored breathing, decreased intensity of breath sounds. No wheeze. HEART: S1, S2. Regular rate and rhythm. ABDOMEN: Soft, no tenderness. LABS: Hemoglobin is 13, white count 9.9. Urine for Legionella antigen is negative. Blood culture negative. DIAGNOSTIC IMPRESSION AND PLAN: Patient with acute COVID-19 pneumonia in this patient currently being treated with dexamethasone, remdesivir, Lovenox and zinc to continue along with respiratory support. Monitor clinical course closely. MMODL / IJN: [id number] /
[2020-03-02 07:22] LABS: Basophils % (A) 1 %; Eosinophils % (A) 1 %; HCT 37.7 % (39.0-53.0); HGB 12.8 gm/dL (13.0-17.5); Lymphocytes # (A) 0.9 k/uL (1.0-4.8); Lymphocytes % (A) 13 %; MCH 30.2 pg (25.0-35.0); MCV 88.9 fL (80.0-100.0); Monocytes # (A) 0.4 k/uL (0-1.0); Monocytes % (A) 6 %; Neutrophils # (A) 5.1 k/uL (1.3-7.7); Neutrophils % (A) 79 %; Platelet Count 145 k/uL (150-450); RBC 4.24 m/uL (4.30-5.90); RDW 13.6 % (11.5-15.5); WBC 6.5 k/uL (3.8-10.6)
[2020-03-02] MEDS: ALBUTEROL HFA INHALER INHALATION PRN ×3 (08:35→21:04)
[2020-03-02] MEDS: atenoloL 25 MG TAB PO SCH (08:51)
[2020-03-02] MEDS: FAMOTIDINE 20 MG TAB PO SCH ×2 (08:51→20:05)
[2020-03-02] MEDS: DEXAMETHASONE SOD PHOSPHATE 10 MG/ML 1 ML VIAL IV SCH (08:51)
[2020-03-02] MEDS: ENOXAPARIN 40 MG/0.4 ML SYRINGE SQ SCH (08:52)
--- NOTE | 2020-03-02 10:42 | P.PN ---
Subjective Progress Note Date: 03/02/20 Principal diagnosis: Acute hypoxic respiratory failure Covid 19 pneumonia with groundglass attenuation on CT and interstitial infiltrate bilaterally on x-ray Mild hyponatremia likely hypovolemic isotonic hyponatremia History of hypertension hypertensive cardiovascular disease 03/02/2020, patient seen eval examined during the rounds labs reviewed medications reviewed, remains on high flow oxygen 10 L saturation is 95%, patient remains on therapy, hemodynamically stable, continue prone positioning as much as possible with deep breathing exercise incentive spirometry This is a 69-year-old male with significant history of TIA and hypertension with hypertensive cardiovascular disease well controlled came into the hospital with increasing shortness of breath and desaturation, patient was diagnosed with Covid 19 pneumonia 2 days ago, initially patient was on 3 L oxygen, lately have been on nonrebreather mask saturation is 90-94% anxious, computed tomography scan shows bilateral groundglass attenuation, chest x-ray shows prominent interstitium slightly worse compared to prior exam, patient has elevated inflammatory parameters, patient has been appropriately started on Decadron, REM does wear, Lovenox and zinc, he is also placed on respiratory and droplet isolation, latest oxygen saturation is 94% on 15 L nonrebreather mask Objective - Vital Signs Vital signs: Vital Signs Temp 97.8 F 03/02/20 04:59 Pulse 72 03/02/20 04:59 Resp 16 03/02/20 04:59 BP 126/77 03/02/20 04:59 Pulse Ox 95 03/02/20 04:59 Intake & Output 03/01/20 03/02/20 03/02/20 18:59 06:59 18:59 Output Total 800 900 Balance -800 -900 Output: Urine 800 900 Other: # Voids 2 3 3 - Exam - Constitutional General appearance: average body habitus, disheveled - EENT Eyes: EOMI, PERRLA Ears: bilateral: normal - Neck Neck: normal ROM Carotids: bilateral: upstroke normal Thyroid: bilateral: normal size - Respiratory Respiratory: bilateral: CTA - Cardiovascular Rhythm: regular Heart sounds: normal: S1, S2 - Gastrointestinal General gastrointestinal: normal bowel sounds - Neurologic Neurologic: CNII-XII intact - Musculoskeletal Musculoskeletal: gait normal, generalized weakness, strength equal bilaterally - Psychiatric Psychiatric: A&O x's 3, appropriate affect, intact judgment & insight - Labs CBC & Chem 7: 03/02/20 06:41 02/28/20 22:28 Labs: Abnormal Lab Results - Last 24 Hours (Table) 03/02/20 Range/Units 06:41 RBC 4.24 L (4.30-5.90) m/uL Hgb 12.8 L (13.0-17.5) gm/dL Hct 37.7 L (39.0-53.0) % Plt Count 145 L (150-450) k/uL Lymphocytes # 0.9 L (1.0-4.8) k/uL Microbiology - Last 24 Hours (Table) 02/28/20 23:22 Blood Culture - Preliminary Blood No Growth after 48 hours Assessment and Plan Assessment: Acute hypoxic respiratory failure Covid 19 pneumonia with groundglass attenuation on CT and interstitial infiltrate bilaterally on x-ray Mild hyponatremia likely hypovolemic isotonic hyponatremia History of hypertension hypertensive cardiovascular disease Plan: Continue oxygen to keep saturation over 88 percent and above Prone positioning Deep breathing exercises incentive spirometry Continue supportive care Continue anticoagulation Continue Remdesivir for 5 days Continue Hexadrol for 10 days Time with Patient: Greater than 30
[2020-03-02 11:56] LABS: African American GFR (CKD) 112.4 (60.0-200.0); Albumin 2.9 g/dL (3.80-4.90); Albumin/Globulin Ratio 1.71 (1.60-3.17); Anion Gap 9.3 mmol/L (4.00-12.00); BUN/Creat Ratio 25.71 Ratio (12.00-20.00); C Reactive Protein 3.8 mg/dL (0.0-0.8); Calcium 6.9 mg/dL (8.7-10.3); Carbon Dioxide 20.7 mmol/L (21.6-31.8); Globulin 1.7 g/dL (1.6-3.3); Total Bilirubin 0.3 mg/dL (0.3-1.2); Total Protein 4.6 g/dL (6.2-8.2)
--- NOTE | 2020-03-02 15:00 | P.PN ---
Subjective Progress Note Date: 03/02/20 69-year-old male came in with comments of shortness of breath. Patient was test is positive for covid mid 19 yesterday. Patient was discharged home shortly became short of breath came back to the hospital. Patient is presently on 3 L of oxygen. Patient symptoms has been going on for about 5-6 days patient was having chest discomfort and difficulty breathing patient is mildly hyponatremic. And had a CT angios the chest chest which did not show any pulmonary embolism which did show ground gap is obese days and a paced is consistent with Covid 19. Vision has bilateral hilar lymphadenopathy. 03/01/2020 Patient is seen and evaluated and follow-up and continues to have shortness of breath and is currently maintained on a nonrebreather and was experiencing some anxiety due to shortness of breath. Pulmonary following an anti-anxiety medications ordered. Patient's white blood count improved to 9.9 today. She is maintained on Zithromax along with dexamethasone, Lovenox, zinc, and remdesivir and will continue at this time. Discussed with nursing staff about weaning off of oxygen as he does not normally wear oxygen at home. Discussed with the patient increasing activity as tolerated. Review of systems: Constitutional: Reports fatigue, no reports of fever, or chills Cardiovascular: No reports of chest pain or palpitations Respiratory: Reports shortness of breath and cough GI: No reports of nausea, vomiting, or diarrhea, reports decreased appetite : No reports of dysuria or retention Neurovascular: reports generalized weakness All medications have been reviewed 03/02/2020 Patient is seen in follow-up with no acute overnight issues. Patient is breathing a little easier as he has been receiving some Ativan for anxiety. Patient is currently on 10 L high flow oxygen and off the nonrebreather. Patient is instructed to increase activity as tolerated and continue with coughi ng and deep breathing. Patient is maintained on Remdesivir, Lovenox, and dexamethasone and will continue at this time. Pulmonary following. Review of systems: Constitutional: Reports fatigue and generalized weakness Cardiovascular: No reports of chest pain or palpitations Respiratory: Reports shortness of breath and cough with phlegm production although slightly decreased GI: No reports of nausea, vomiting, or diarrhea, reports decreased appetite : No reports of dysuria or retention Neurovascular: No reports of numbness All medications have been reviewed Objective - Vital Signs Vital signs: Vital Signs Temp 97.8 F 03/02/20 04:59 Pulse 70 03/02/20 08:00 Resp 16 03/02/20 08:00 BP 126/77 03/02/20 04:59 Pulse Ox 95 03/02/20 04:59 Intake & Output 03/01/20 03/02/20 03/02/20 18:59 06:59 18:59 Output Total 800 900 Balance -800 -900 Output: Urine 800 900 Other: # Voids 2 3 3 - Exam GENERAL: The patient is alert and oriented x3, not in any acute distress. Lethargic but arousable. Well developed, well nourished. HEENT: Pupils are round and equally reacting to light. EOMI. No scleral icterus. No conjunctival pallor. Normocephalic, atraumatic. No pharyngeal erythema. No thyromegaly. CARDIOVASCULAR: S1 and S2 present. No murmurs, rubs, or gallops. PULMONARY: Bilateral crackles in the decreased air entry into bilateral lung burnham ABDOMEN: Soft, nontender, nondistended, normoactive bowel sounds. No palpable organomegaly. MUSCULOSKELETAL: No joint swelling or deformity. EXTREMITIES: No cyanosis, clubbing, or pedal edema. NEUROLOGICAL: Gross neurological examination did not reveal any focal deficits. SKIN: No rashes. - Labs CBC & Chem 7: 03/02/20 06:41 03/02/20 06:41 Labs: Abnormal Lab Results - Last 24 Hours (Table) 03/02/20 Range/Units 06:41 RBC 4.24 L (4.30-5.90) m/uL Hgb 12.8 L (13.0-17.5) gm/dL Hct 37.7 L (39.0-53.0) % Plt Count 145 L (150-450) k/uL Lymphocytes # 0.9 L (1.0-4.8) k/uL Microbiology - Last 24 Hours (Table) 02/28/20 23:22 Blood Culture - Preliminary Blood No Growth after 48 hours Assessment and Plan Assessment: -Acute hypoxic respiratory failure secondary to covid 19 pneumonia. Patient currently on dexamethasone, Lovenox, and remdesivir. infectious disease following. The through max completed -Hypovolemic hyponatremia: Secondary to diarrhea from coronavirus, improving. Current sodium 141 -Hypertension -History of CVA /TIA in the past -DVT prophylaxis with Lovenox -GI prophylaxis: Pepcid Plan: Continue current medications. Continue to attempt to wean off oxygen and increase activity as tolerated. Patient is currently on 10 L via high flow nasal cannula. Discussed with nursing staff about weaning FiO2 as tolerated. Further recommendations to follow.
[2020-03-02] MEDS: REMDESIVIR 100 MG in SODIUM CHLORIDE 0.9% 250 ML IVPB SCH (15:47)
[2020-03-02] MEDS: LORazepam 2 MG/ML INJ IV PRN ×2 (17:55→21:28)
[2020-03-02] MEDS: ASCORBIC ACID 500 MG TAB PO SCH (20:05)
[2020-03-02] MEDS: ASPIRIN 325 MG TAB PO SCH (20:05)
--- NOTE | 2020-03-03 02:42 | PN ---
PROGRESS NOTE DATE OF SERVICE: 03/02/2020 REASON FOR FOLLOWUP: Acute COVID-19 pneumonia. INTERVAL HISTORY: The patient is currently afebrile. The patient is breathing slightly comfortably. is cut down to 6 L nasal cannula. Denies any chest pain. Minimal cough. No abdominal pain or diarrhea. PHYSICAL EXAMINATION: Blood pressure is 144/75, pulse of 62, temperature 98.1. He is 97% on 6 L nasal cannula. General description is an elderly male lying in bed in no distress. RESPIRATORY SYSTEM: Unlabored breathing, decreased intense breath sounds. No wheeze. HEART: S1, S2. Regular rate and rhythm. ABDOMEN: Soft, no tenderness. LABS: Hemoglobin is 12.8, white count 6.5, BUN of 18, creatinine of 0.7. DIAGNOSTIC IMPRESSION AND PLAN: Patient with acute COVID-19 pneumonia in this patient currently responding to the dexamethasone, Lovenox, remdesivir, along with respiratory support. IV fluids should be hep locked and will monitor his clinical course closely KIMBERLYL / BERTAN: [id number] /
[2020-03-03] MEDS: LORazepam 2 MG/ML INJ IV PRN ×3 (06:13→20:36)
[2020-03-03 06:47] LABS: Basophils % (A) 1 %; Eosinophils # (A) 0.1 k/uL (0-0.7); Eosinophils % (A) 1 %; HGB 13.1 gm/dL (13.0-17.5); Lymphocytes # (A) 0.8 k/uL (1.0-4.8); Lymphocytes % (A) 14 %; MCH 29.2 pg (25.0-35.0); MCHC 32.7 g/dL (31.0-37.0); MCV 89.3 fL (80.0-100.0); Mean Platelet Volume 8.4; Monocytes # (A) 0.4 k/uL (0-1.0); Monocytes % (A) 6 %; Neutrophils # (A) 4.5 k/uL (1.3-7.7); Neutrophils % (A) 77 %; Platelet Count 152 k/uL (150-450); RBC 4.48 m/uL (4.30-5.90); RDW 13.7 % (11.5-15.5); WBC 5.9 k/uL (3.8-10.6)
[2020-03-03] MEDS: ALBUTEROL HFA INHALER INHALATION PRN ×3 (08:14→20:16)
--- NOTE | 2020-03-03 08:14 | XR ---
EXAMINATION TYPE: XR chest 1V portable DATE OF EXAM: 03/03/2020 CLINICAL HISTORY: Difficulty breathing and pneumonia progress study. Covid+. TECHNIQUE: Single AP portable upright view of the chest is obtained. COMPARISON: Chest x-ray from 4 and 5 days earlier. CTA chest 3 days ago. FINDINGS: Worsening bilateral peripheral opacities on background chronic parenchymal change. Cardiac silhouette size is stable and upper limits of normal. Osseous structures are intact. IMPRESSION: Worsening bilateral predominantly peripheral multifocal acute infiltrates consistent with worsening covid-19 infection.
[2020-03-03] MEDS: FAMOTIDINE 20 MG TAB PO SCH ×2 (09:32→20:35)
[2020-03-03] MEDS: ASCORBIC ACID 500 MG TAB PO SCH (09:32)
[2020-03-03] MEDS: atenoloL 25 MG TAB PO SCH (09:33)
[2020-03-03] MEDS: ENOXAPARIN 40 MG/0.4 ML SYRINGE SQ SCH (09:33)
[2020-03-03] MEDS: DEXAMETHASONE SOD PHOSPHATE 10 MG/ML 1 ML VIAL IV SCH (09:33)
[2020-03-03] MEDS: ASPIRIN 325 MG TAB PO SCH (09:33)
[2020-03-03 11:32] LABS: C Reactive Protein 2.6 mg/dL (0.0-0.8)
[2020-03-03] MEDS: REMDESIVIR 100 MG in SODIUM CHLORIDE 0.9% 250 ML IVPB SCH (15:37)
--- NOTE | 2020-03-04 01:09 | P.PN ---
Subjective Progress Note Date: 03/03/20 69-year-old male came in with comments of shortness of breath. Patient was test is positive for covid mid 19 yesterday. Patient was discharged home shortly became short of breath came back to the hospital. Patient is presently on 3 L of oxygen. Patient symptoms has been going on for about 5-6 days patient was having chest discomfort and difficulty breathing patient is mildly hyponatremic. And had a CT angios the chest chest which did not show any pulmonary embolism which did show ground gap is obese days and a paced is consistent with Covid 19. Vision has bilateral hilar lymphadenopathy. 03/01/2020 Patient is seen and evaluated and follow-up and continues to have shortness of breath and is currently maintained on a nonrebreather and was experiencing some anxiety due to shortness of breath. Pulmonary following an anti-anxiety medications ordered. Patient's white blood count improved to 9.9 today. She is maintained on Zithromax along with dexamethasone, Lovenox, zinc, and remdesivir and will continue at this time. Discussed with nursing staff about weaning off of oxygen as he does not normally wear oxygen at home. Discussed with the patient increasing activity as tolerated. Review of systems: Constitutional: Reports fatigue, no reports of fever, or chills Cardiovascular: No reports of chest pain or palpitations Respiratory: Reports shortness of breath and cough GI: No reports of nausea, vomiting, or diarrhea, reports decreased appetite : No reports of dysuria or retention Neurovascular: reports generalized weakness All medications have been reviewed 03/02/2020 Patient is seen in follow-up with no acute overnight issues. Patient is breathing a little easier as he has been receiving some Ativan for anxiety. Patient is currently on 10 L high flow oxygen and off the nonrebreather. Patient is instructed to increase activity as tolerated and continue with coughi ng and deep breathing. Patient is maintained on Remdesivir, Lovenox, and dexamethasone and will continue at this time. Pulmonary following. Review of systems: Constitutional: Reports fatigue and generalized weakness Cardiovascular: No reports of chest pain or palpitations Respiratory: Reports shortness of breath and cough with phlegm production although slightly decreased GI: No reports of nausea, vomiting, or diarrhea, reports decreased appetite : No reports of dysuria or retention Neurovascular: No reports of numbness All medications have been reviewed 03/03/20 Patient remains on 10L high flow and has continued shortness of breath with cough. Chest xray shows worsening bilateral infiltrates. Pulmonary and ID following. Patient continues to have poor appetite and fatigue with generalized weakness noted. Patient has not been getting out of bed much. Patient denies chest pain or palpitations. Afebrile. Denies any vomiting but has occasional nausea and not much of an appetite. Continue to wean FI02 as tolerated. Continue to encourage fluids and increase activity as tolerated. Objective - Vital Signs Vital signs: Vital Signs Temp 97.6 F 03/03/20 12:18 Pulse 74 03/03/20 12:18 Resp 17 03/03/20 12:18 BP 137/67 03/03/20 12:18 Pulse Ox 91 L 03/03/20 12:18 Intake & Output 03/02/20 03/03/20 03/03/20 18:59 06:59 18:59 Intake Total 1450 830 Output Total 900 Balance 550 830 Intake: Intake, IV Titration 250 Amount Remdesivir (Eua) 100 mg 250 In Sodium Chloride 0.9% 250 ml @ 250 mls/hr IVPB DAILY@1600 [facility] Rx#: [id number] Oral 1200 830 Output: Urine 900 Other: # Voids 3 2 # Bowel Movements 1 - Exam GENERAL: The patient is alert and oriented x3, not in any acute distress. Lethargic but arousable. Well developed, well nourished. HEENT: Pupils are round and equally reacting to light. EOMI. No scleral icterus. No conjunctival pallor. Normocephalic, atraumatic. No pharyngeal erythema. No thyromegaly. CARDIOVASCULAR: S1 and S2 present. No murmurs, rubs, or gallops. PULMONARY: Bilateral crackles in the decreased air entry into bilateral lung f ields, scattered rhonchi noted ABDOMEN: Soft, nontender, nondistended, normoactive bowel sounds. No palpable organomegaly. MUSCULOSKELETAL: No joint swelling or deformity. EXTREMITIES: No cyanosis, clubbing, or pedal edema. NEUROLOGICAL: Gross neurological examination did not reveal any focal deficits. SKIN: No rashes. - Labs CBC & Chem 7: 03/03/20 06:32 03/02/20 06:41 Labs: Abnormal Lab Results - Last 24 Hours (Table) 03/03/20 03/03/20 03/03/20 Range/Units 06:32 06:32 06:32 Lymphocytes # 0.8 L (1.0-4.8) k/uL D-Dimer 2.20 H (<0.60) mg/L FEU Lactate Dehydrogenase 421 H (120-246) U/L C-Reactive Protein 2.6 H (0.0-0.8) mg/dL Microbiology - Last 24 Hours (Table) 02/28/20 23:22 Blood Culture - Preliminary Blood No Growth after 72 hours Assessment and Plan Assessment: -Acute hypoxic respiratory failure secondary to covid 19 pneumonia. Patient currently on dexamethasone, Lovenox, and remdesivir. infectious disease following. Zithromax completed -Hypovolemic hyponatremia: Secondary to diarrhea from coronavirus, improving. 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 Continue to attempt to wean off oxygen and increase activity as tolerated. Patient is currently on 8-10 L via high flow nasal cannula. Discussed with nursing staff about weaning FiO2 as tolerated. D dimer elevated at 2.20 and maintained on lovenox. CTA done previously shows no PE. Further recommendations to follow. Prognosis guarded. Patient may potentially need to go home on 02. Case management following.
--- NOTE | 2020-03-04 01:33 | PN ---
PROGRESS NOTE DATE OF SERVICE: 03/03/2020 REASON FOR FOLLOWUP: Acute COVID-19 pneumonia. INTERVAL HISTORY: Patient is currently afebrile. He is breathing slightly comfortably. FiO2 is currently down to 8 L. The patient denies having any chest pain. Minimal cough. No nausea, no vomiting. No abdominal pain or diarrhea. PHYSICAL EXAMINATION: Blood pressure 160/77, pulse of 87, temperature 98.1. He is 97% on 8 L nasal cannula. General description: The patient is an elderly male lying in bed in no distress. Respiratory system: Unlabored breathing, decreased intensity of breath sounds. No wheeze. HEART: S1, S2. Regular rate and rhythm. ABDOMEN: Soft, no tenderness. LABS: Hemoglobin 13.1, white count 5.9. D-dimer is 2.20. LDH is 421, has came down and CRP is down to 2.6. DIAGNOSTIC IMPRESSION AND PLAN: Patient with acute COVID-19 infection in this patient who seemed to have shown clinical improvement. X-ray shows some worsening though. His respiratory status has improved. We will keep the patient on Decadron, Lovenox, dexamethasone, and respiratory support and monitor clinical course closely. MMODL / IJN: [id number] /
[2020-03-04] MEDS: LORazepam 2 MG/ML INJ IV PRN ×2 (03:19→15:34)
[2020-03-04] MEDS: ALBUTEROL HFA INHALER INHALATION PRN ×2 (08:25→21:22)
[2020-03-04] MEDS: ASPIRIN 325 MG TAB PO SCH (10:05)
[2020-03-04] MEDS: FAMOTIDINE 20 MG TAB PO SCH ×2 (10:05→20:20)
[2020-03-04] MEDS: atenoloL 25 MG TAB PO SCH (10:05)
[2020-03-04] MEDS: ASCORBIC ACID 500 MG TAB PO SCH (10:05)
[2020-03-04] MEDS: ENOXAPARIN 40 MG/0.4 ML SYRINGE SQ SCH (10:06)
[2020-03-04] MEDS: DEXAMETHASONE SOD PHOSPHATE 10 MG/ML 1 ML VIAL IV SCH (10:06)
--- NOTE | 2020-03-04 10:37 | P.PN ---
Subjective Progress Note Date: 03/03/20 Principal diagnosis: Acute hypoxic respiratory failure Covid 19 pneumonia with groundglass attenuation on CT and interstitial infiltrate bilaterally on x-ray Mild hyponatremia likely hypovolemic isotonic hyponatremia History of hypertension hypertensive cardiovascular disease 03/03/2020, patient seen eval examined during the rounds remains on 10 L high flow oxygen, chest x-ray is reviewed bilateral infiltrate are present slightly worsening has been noted, patient is afebrile, generalized weakness present, 03/02/2020, patient seen eval examined during the rounds labs reviewed medications reviewed, remains on high flow oxygen 10 L saturation is 95%, patient remains on therapy, hemodynamically stable, continue prone positioning as much as possible with deep breathing exercise incentive spirometry This is a 69-year-old male with significant history of TIA and hypertension with hypertensive cardiovascular disease well controlled came into the hospital with increasing shortness of breath and desaturation, patient was diagnosed with Covid 19 pneumonia 2 days ago, initially patient was on 3 L oxygen, lately have been on nonrebreather mask saturation is 90-94% anxious, computed tomography scan shows bilateral groundglass attenuation, chest x-ray shows prominent i nterstitium slightly worse compared to prior exam, patient has elevated inflammatory parameters, patient has been appropriately started on Decadron, REM does wear, Lovenox and zinc, he is also placed on respiratory and droplet isolation, latest oxygen saturation is 94% on 15 L nonrebreather mask Objective - Vital Signs Vital signs: Vital Signs Temp 97.6 F 03/03/20 05:16 Pulse 74 03/03/20 05:16 Resp 20 03/03/20 05:16 BP 111/64 03/03/20 05:16 Pulse Ox 91 L 03/03/20 05:44 Intake & Output 03/02/20 03/03/20 03/03/20 18:59 06:59 18:59 Intake Total 1450 830 Output Total 900 Balance 550 830 Intake: Intake, IV Titration 250 Amount Remdesivir (Eua) 100 mg 250 In Sodium Chloride 0.9% 250 ml @ 250 mls/hr IVPB DAILY@1600 [facility] Rx#: [id number] Oral 1200 830 Output: Urine 900 Other: # Voids 3 2 # Bowel Movements 1 - Exam - Constitutional General appearance: average body habitus, disheveled - EENT Eyes: EOMI, PERRLA Ears: bilateral: normal - Neck Neck: normal ROM Carotids: bilateral: upstroke normal Thyroid: bilateral: normal size - Respiratory Respiratory: bilateral: CTA - Cardiovascular Rhythm: regular Heart sounds: normal: S1, S2 - Gastrointestinal General gastrointestinal: normal bowel sounds - Neurologic Neurologic: CNII-XII intact - Musculoskeletal Musculoskeletal: gait normal, generalized weakness, strength equal bilaterally - Psychiatric Psychiatric: A&O x's 3, appropriate affect, intact judgment & insight - Labs CBC & Chem 7: 03/03/20 06:32 03/02/20 06:41 Labs: Abnormal Lab Results - Last 24 Hours (Table) 03/02/20 03/03/20 03/03/20 Range/Units 06:41 06:32 06:32 Lymphocytes # 0.8 L (1.0-4.8) k/uL D-Dimer 2.20 H (<0.60) mg/L FEU Chloride 111 H (96-109) mmol/L Carbon Dioxide 20.7 L (21.6-31.8) mmol/L BUN/Creatinine Ratio 25.71 H (12.00-20.00) Ratio Glucose 112 H (70-110) mg/dL Calcium 6.9 L (8.7-10.3) mg/dL C-Reactive Protein 3.8 H (0.0-0.8) mg/dL Total Protein 4.6 L (6.2-8.2) g/dL Albumin 2.90 L (3.80-4.90) g/dL Microbiology - Last 24 Hours (Table) 02/28/20 23:22 Blood Culture - Preliminary Blood No Growth after 72 hours Assessment and Plan Assessment: Acute hypoxic respiratory failure Covid 19 pneumonia with groundglass attenuation on CT and interstitial infi ltrate bilaterally on x-ray Mild hyponatremia likely hypovolemic isotonic hyponatremia History of hypertension hypertensive cardiovascular disease Plan: Continue oxygen to keep saturation over 88 percent and above Prone positioning Deep breathing exercises incentive spirometry Continue supportive care Continue anticoagulation Continue Remdesivir for 5 days Continue Hexadrol for 10 days Time with Patient: Greater than 30
--- NOTE | 2020-03-04 10:39 | P.PN ---
Subjective Progress Note Date: 03/04/20 Principal diagnosis: Acute hypoxic respiratory failure Covid 19 pneumonia with groundglass attenuation on CT and interstitial infiltrate bilaterally on x-ray Mild hyponatremia likely hypovolemic isotonic hyponatremia History of hypertension hypertensive cardiovascular disease 03/04/2020, patient seen eval examined during the rounds remains short of breath denies any chest pain or sputum production, currently on 15 L high flow oxygen saturation is 92%, somewhat decreased compared to last 24-48 hours with high requirements, chest x-ray showed bilateral worsening of infiltrate consistent with Covid 19 pneumonia with cytokines jose 03/03/2020, patient seen eval examined during the rounds remains on 10 L high flow oxygen, chest x-ray is reviewed bilateral infiltrate are present slightly worsening has been noted, patient is afebrile, generalized weakness present, 03/02/2020, patient seen eval examined during the rounds labs reviewed medications reviewed, remains on high flow oxygen 10 L saturation is 95%, patient remains on therapy, hemodynamically stable, continue prone positioning as much as possible with deep breathing exercise incentive spirometry This is a 69-year-old male with significant history of TIA and hypertension with hypertensive cardiovascular disease well controlled came into the hospital with increasing shortness of breath and desaturation, patient was diagnosed with Covid 19 pneumonia 2 days ago, initially patient was on 3 L oxygen, lately have been on nonrebreather mask saturation is 90-94% anxious, computed tomography scan shows bilateral groundglass attenuation, chest x-ray shows prominent interstitium slightly worse compared to prior exam, patient has elevated inflammatory parameters, patient has been appropriately started on Decadron, REM does wear, Lovenox and zinc, he is also placed on respiratory and droplet isolation, latest oxygen saturation is 94% on 15 L nonrebreather mask Objective - Vital Signs Vital signs: Vital Signs Temp 97.4 F L 03/04/20 04:00 Pulse 78 03/04/20 04:00 Resp 26 H 03/04/20 04:00 BP 110/70 03/04/20 04:00 Pulse Ox 92 L 03/04/20 08:25 Intake & Output 03/03/20 03/04/20 03/04/20 18:59 06:59 18:59 Intake Total 500 Output Total 500 Balance 500 -500 Intake: Oral 500 Output: Urine 500 Other: # Voids 2 2 - Exam - Constitutional General appearance: average body habitus, disheveled - EENT Eyes: EOMI, PERRLA Ears: bilateral: normal - Neck Neck: normal ROM Carotids: bilateral: upstroke normal Thyroid: bilateral: normal size - Respiratory Respiratory: bilateral: CTA - Cardiovascular Rhythm: regular Heart sounds: normal: S1, S2 - Gastrointestinal General gastrointestinal: normal bowel sounds - Neurologic Neurologic: CNII-XII intact - Musculoskeletal Musculoskeletal: gait normal, generalized weakness, strength equal bilaterally - Psychiatric Psychiatric: A&O x's 3, appropriate affect, intact judgment & insight - Labs CBC & Chem 7: 03/03/20 06:32 03/02/20 06:41 Labs: Abnormal Lab Results - Last 24 Hours (Table) 03/03/20 Range/Units 06:32 Lactate Dehydrogenase 421 H (120-246) U/L C-Reactive Protein 2.6 H (0.0-0.8) mg/dL Microbiology - Last 24 Hours (Table) 02/28/20 23:22 Blood Culture - Preliminary Blood No Growth after 96 hours Assessment and Plan Assessment: Acute hypoxic respiratory failure Covid 19 pneumonia with groundglass attenuation on CT and interstitial infiltrate bilaterally on x-ray Mild hyponatremia likely hypovolemic isotonic hyponatremia History of hypertension hypertensive cardiovascular disease Plan: Continue oxygen to keep saturation over 88 percent and above Prone positioning Deep breathing exercises incentive spirometry Continue supportive care Continue anticoagulation Continue Remdesivir for 5 days Continue Hexadrol for 10 days Time with Patient: Greater than 30
[2020-03-04 12:01] LABS: African American GFR (CKD) 106.4 (60.0-200.0); Albumin/Globulin Ratio 1.76 (1.60-3.17); BUN/Creat Ratio 22.5 Ratio (12.00-20.00); C Reactive Protein 1.7 mg/dL (0.0-0.8); Calcium 7.2 mg/dL (8.7-10.3); Globulin 1.7 g/dL (1.6-3.3); Non-African American GFR(CKD) 91.8 (60.0-200.0); Potassium 3.8 mmol/L (3.5-5.5); Total Bilirubin 0.5 mg/dL (0.3-1.2); Total Protein 4.7 g/dL (6.2-8.2)
[2020-03-04] MEDS: REMDESIVIR 100 MG in SODIUM CHLORIDE 0.9% 250 ML IVPB SCH (15:34)
[2020-03-04] MEDS: diphenhydrAMINE 25 MG CAP PO PRN (20:24)
--- NOTE | 2020-03-04 23:46 | P.PN ---
Subjective Progress Note Date: 03/04/20 Principal diagnosis: Acute hypoxic respiratory failure secondary to covid 19 pneumonia. 69-year-old male came in with comments of shortness of breath. Patient was test is positive for covid mid 19 yesterday. Patient was discharged home shortly became short of breath came back to the hospital. Patient is presently on 3 L of oxygen. Patient symptoms has been going on for about 5-6 days patient was having chest discomfort and difficulty breathing patient is mildly hyponatremic. And had a CT angios the chest chest which did not show any pulmonary embolism which did show ground gap is obese days and a paced is consistent with Covid 19. Vision has bilateral hilar lymphadenopathy. 03/01/2020 Patient is seen and evaluated and follow-up and continues to have shortness of breath and is currently maintained on a nonrebreather and was experiencing some anxiety due to shortness of breath. Pulmonary following an anti-anxiety medications ordered. Patient's white blood count improved to 9.9 today. She is maintained on Zithromax along with dexamethasone, Lovenox, zinc, and remdesivir and will continue at this time. Discussed with nursing staff about weaning off of oxygen as he does not normally wear oxygen at home. Discussed with the patient increasing activity as tolerated. Review of systems: Constitutional: Reports fatigue, no reports of fever, or chills Cardiovascular: No reports of chest pain or palpitations Respiratory: Reports shortness of breath and cough GI: No reports of nausea, vomiting, or diarrhea, reports decreased appetite : No reports of dysuria or retention Neurovascular: reports generalized weakness All medications have been reviewed 03/02/2020 Patient is seen in follow-up with no acute overnight issues. Patient is breathing a little easier as he has been receiving some Ativan for anxiety. Patient is currently on 10 L high flow oxygen and off the nonrebreather. Patient is instructed to increase activity as tolerated and continue with coughing and deep breathing. Patient is maintained on Remdesivir, Lovenox, and dexamethasone and will continue at this time. Pulmonary following. Review of systems: Constitutional: Reports fatigue and generalized weakness Cardiovascular: No reports of chest pain or palpitations Respiratory: Reports shortness of breath and cough with phlegm production although slightly decreased GI: No reports of nausea, vomiting, or diarrhea, reports decreased appetite : No reports of dysuria or retention Neurovascular: No reports of numbness All medications have been reviewed 03/03/20 Patient remains on 10L high flow and has continued shortness of breath with cough. Chest xray shows worsening bilateral infiltrates. Pulmonary and ID following. Patient continues to have poor appetite and fatigue with generalized weakness noted. Patient has not been getting out of bed much. Patient denies chest pain or palpitations. Afebrile. Denies any vomiting but has occasional nausea and not much of an appetite. Continue to wean FI02 as tolerated. Continue to encourage fluids and increase activity as tolerated. 03/04/2020 Patient is currently sitting on the side of the bed. Still having shortness of breath and requiring high flow oxygen 15 L nonrebreather. Laboratory data showed sodium 140, potassium 3.8 and BUN 18 and creatinine 0.8 Patient is being continued on dexamethasone, Lovenox and vitamin supplementation. Pulmonary is on board. Patient has been afebrile. Current medications reviewed. Objective - Vital Signs Vital signs: Vital Signs Temp 98.2 F 03/04/20 12:05 Pulse 69 03/04/20 12:05 Resp 18 03/04/20 12:05 BP 147/75 03/04/20 12:05 Pulse Ox 98 03/04/20 12:05 Intake & Output 03/03/20 03/04/20 03/04/20 18:59 06:59 18:59 Intake Total 500 Output Total 1000 Balance 500 -1000 Intake: Oral 500 Output: Urine 1000 Other: # Voids 2 2 - Exam - Exam GENERAL: The patient is alert and oriented x3, not in any acute distress. Lethargic but arousable. Well developed, well nourished. HEENT: Pupils are round and equally reacting to light. EOMI. No scleral icterus. No conjunctival pallor. Normocephalic, atraumatic. No pharyngeal erythema. No thyromegaly. CARDIOVASCULAR: S1 and S2 present. No murmurs, rubs, or gallops. PULMONARY: Bilateral crackles in the decreased air entry into bilateral lung [place], scattered rhonchi noted ABDOMEN: Soft, nontender, nondistended, normoactive bowel sounds. No palpable organomegaly. MUSCULOSKELETAL: No joint swelling or deformity. EXTREMITIES: No cyanosis, clubbing, or pedal edema. NEUROLOGICAL: Gross neurological examination did not reveal any focal deficits. SKIN: No rashes. - Labs CBC & Chem 7: 03/03/20 06:32 03/04/20 07:02 Labs: Abnormal Lab Results - Last 24 Hours (Table) 03/04/20 Range/Units 07:02 BUN/Creatinine Ratio 22.50 H (12.00-20.00) Ratio Calcium 7.2 L (8.7-10.3) mg/dL C-Reactive Protein 1.7 H (0.0-0.8) mg/dL Total Protein 4.7 L (6.2-8.2) g/dL Albumin 3.00 L (3.80-4.90) g/dL Microbiology - Last 24 Hours (Table) 02/28/20 23:22 Blood Culture - Preliminary Blood No Growth after 96 hours Assessment and Plan Assessment: -Acute hypoxic respiratory failure secondary to covid 19 pneumonia. Patient currently on dexamethasone, Lovenox, and remdesivir. infectious disease following. Zithromax completed -Hypovolemic hyponatremia: Secondary to diarrhea from coronavirus, improving. 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 Continue to attempt to wean off oxygen and increase activity as tolerated. Patient is currently on 8-10 L via high flow nasal cannula. Discussed with nursing staff about weaning FiO2 as tolerated. D dimer elevated at 2.20 and maintained on lovenox. CTA done previously shows no P E. Further recommendations to follow. Prognosis guarded. Patient may potentially need to go home on . Case management following. Time with Patient: Greater than 30
[2020-03-05] MEDS: LORazepam 2 MG/ML INJ IV PRN ×3 (02:32→21:40)
[2020-03-05] MEDS: methylPREDNISolone SOD SUCCI 125 MG/2 ML VIAL IV SCH ×4 (05:28→23:55)
--- NOTE | 2020-03-05 07:22 | PN ---
PROGRESS NOTE DATE OF SERVICE: 03/05/2020 REASON FOR FOLLOWUP: COVID-19 pneumonia. INTERVAL HISTORY: The patient is currently afebrile. The patient is still requiring high-flow nasal cannula oxygen. He is complaining of some shortness of breath. Did have minimal cough. No nausea, no vomiting. No abdominal pain. No diarrhea. PHYSICAL EXAMINATION: Blood pressure 131/66, pulse of 79, temperature 98. He is 92% on 15 L high-flow oxygen. General description is an elderly male lying in bed in no distress. RESPIRATORY SYSTEM: Unlabored breathing, decreased breath sounds at the bases. No wheeze. HEART: S1, S2. Regular rate and rhythm. ABDOMEN: Soft, no tenderness. LABS: BUN of 18, creatinine 0.8. DIAGNOSTIC IMPRESSION AND PLAN: Patient with acute COVID-19 infection. Patient completed a 5-day course of remdesivir. He is still having significant hypoxemia. We will adjust dose of steroids to the Solu- Medrol. Continue Lovenox and zinc sulfate and monitor clinical course closely. Continue with supportive care. MMODL / IJN: [id number] /
[2020-03-05] MEDS: ASCORBIC ACID 500 MG TAB PO SCH (08:55)
[2020-03-05] MEDS: atenoloL 25 MG TAB PO SCH (08:55)
[2020-03-05] MEDS: ASPIRIN 325 MG TAB PO SCH (08:55)
[2020-03-05] MEDS: ENOXAPARIN 40 MG/0.4 ML SYRINGE SQ SCH (08:55)
[2020-03-05] MEDS: FAMOTIDINE 20 MG TAB PO SCH ×2 (08:55→19:47)
[2020-03-05 12:07] LABS: Basophils # (A) 0.1 k/uL (0-0.2); Basophils % (A) 1 %; Eosinophils # (A) 0.1 k/uL (0-0.7); Eosinophils % (A) 1 %; HCT 40.7 % (39.0-53.0); HGB 13.5 gm/dL (13.0-17.5); Lymphocytes # (A) 1.1 k/uL (1.0-4.8); Lymphocytes % (A) 12 %; MCH 29.3 pg (25.0-35.0); MCHC 33.2 g/dL (31.0-37.0); MCV 88.4 fL (80.0-100.0); Mean Platelet Volume 8.3; Monocytes # (A) 0.4 k/uL (0-1.0); Monocytes % (A) 5 %; Neutrophils % (A) 79 %; Platelet Count 186 k/uL (150-450); RDW 13.3 % (11.5-15.5); WBC 8.9 k/uL (3.8-10.6)
[2020-03-05 13:06] VITALS: BMI 30.5
[2020-03-05] MEDS: ALBUTEROL HFA INHALER INHALATION PRN (19:47)
[2020-03-05] MEDS: diphenhydrAMINE 25 MG CAP PO PRN (20:37)
--- NOTE | 2020-03-05 23:19 | PN ---
PROGRESS NOTE DATE OF SERVICE: 03/05/2020 REASON FOR FOLLOWUP: COVID-19 infection. INTERVAL HISTORY: Patient is currently afebrile. Complaining of feeling slightly anxious. Denies any chest pain. Breathing has improved. No vomiting. No abdominal pain or diarrhea. PHYSICAL EXAMINATION: Blood pressure 134/56, pulse of 78. Temperature 97. He is 92% on nasal cannula oxygen. General description is an elderly male up in the bed in no distress. Respiratory system: Unlabored breathing, decreased intense breath sounds. No wheeze. HEART: S1, S2. Regular rate and rhythm. Abdomen soft, no tenderness. LABS: Hemoglobin 13.4, white count 8.9. DIAGNOSTIC IMPRESSION AND PLAN: Patient with acute COVID-19 infection and this patient who has completed his Remdesivir therapy and switched over to Solu Medrol because of worsening hypoxemia, covered with Lovenox, zinc sulfate to continue along with respiratory support and monitor clinical course closely. MMODL / IJN: [id number] /
[2020-03-06] MEDS: LORazepam 2 MG/ML INJ IV PRN ×3 (03:58→21:33)
[2020-03-06] MEDS: methylPREDNISolone SOD SUCCI 125 MG/2 ML VIAL IV SCH ×3 (05:40→17:27)
[2020-03-06] MEDS: ALBUTEROL HFA INHALER INHALATION PRN (08:42)
[2020-03-06] MEDS: ENOXAPARIN 40 MG/0.4 ML SYRINGE SQ SCH (09:11)
[2020-03-06] MEDS: ASPIRIN 325 MG TAB PO SCH (09:11)
[2020-03-06] MEDS: ASCORBIC ACID 500 MG TAB PO SCH (09:11)
[2020-03-06] MEDS: FAMOTIDINE 20 MG TAB PO SCH ×2 (09:11→20:17)
[2020-03-06] MEDS: atenoloL 25 MG TAB PO SCH (09:11)
--- NOTE | 2020-03-06 12:00 | P.PN ---
Subjective Progress Note Date: 03/06/20 Principal diagnosis: Acute hypoxic respiratory failure Covid 19 pneumonia with groundglass attenuation on CT and interstitial infiltrate bilaterally on x-ray Mild hyponatremia likely hypovolemic isotonic hyponatremia History of hypertension hypertensive cardiovascular disease 03/06/2020, patient seen eval examined during the rounds labs reviewed medications reviewed care plan discussed, patient remains afebrile, oxygen saturation slightly better now 95% on 15 L nonrebreather mask, C reactive slightly better, 03/05/2020, patient seen eval examined during the rounds labs reviewed medications reviewed remains short of breath, on 15 L nonrebreather mask oxygen saturation 100%, remains afebrile, patient remains on IV steroids breathing treatments and anticoagulation with Lovenox 03/04/2020, patient seen eval examined during the rounds remains short of breath denies any chest pain or sputum production, currently on 15 L high flow oxygen saturation is 92%, somewhat decreased compared to last 24-48 hours with high requirements, chest x-ray showed bilateral worsening of infiltrate consistent with Covid 19 pneumonia with cytokines jose 03/03/2020, patient seen eval examined during the rounds remains on 10 L high flow oxygen, chest x-ray is reviewed bilateral infiltrate are present slightly worsening has been noted, patient is afebrile, generalized weakness present, 03/02/2020, patient seen eval examined during the rounds labs reviewed medications reviewed, remains on high flow oxygen 10 L saturation is 95%, patient remains on therapy, hemodynamically stable, continue prone positioning as much as possible with deep breathing exercise incentive spirometry This is a 69-year-old male with significant history of TIA and hypertension with hypertensive cardiovascular disease well controlled came into the hospital with increasing shortness of breath and desaturation, patient was diagnosed with Covid 19 pneumonia 2 days ago, initially patient was on 3 L oxygen, lately have been on nonrebreather mask saturation is 90-94% anxious, computed tomography scan shows bilateral groundglass attenuation, chest x-ray shows prominent interstitium slightly worse compared to prior exam, patient has elevated inflammatory parameters, patient has been appropriately started on Decadron, REM does wear, Lovenox and zinc, he is also placed on respiratory and droplet is olation, latest oxygen saturation is 94% on 15 L nonrebreather mask Objective - Vital Signs Vital signs: Vital Signs Temp 97.4 F L 03/06/20 08:34 Pulse 69 03/06/20 08:34 Resp 16 03/06/20 08:34 BP 144/83 03/06/20 08:34 Pulse Ox 95 03/06/20 08:34 Intake & Output 03/05/20 03/06/20 03/06/20 18:59 06:59 18:59 Intake Total 290 Output Total 700 Balance -410 Weight 88.451 kg Intake: Oral 290 Output: Urine 700 Other: Voiding Method Urinal Urinal # Voids 2 - Exam - Constitutional General appearance: average body habitus, disheveled - EENT Eyes: EOMI, PERRLA Ears: bilateral: normal - Neck Neck: normal ROM Carotids: bilateral: upstroke normal Thyroid: bilateral: normal size - Respiratory Respiratory: bilateral: CTA - Cardiovascular Rhythm: regular Heart sounds: normal: S1, S2 - Gastrointestinal General gastrointestinal: normal bowel sounds - Neurologic Neurologic: CNII-XII intact - Musculoskeletal Musculoskeletal: gait normal, generalized weakness, strength equal bilaterally - Psychiatric Psychiatric: A&O x's 3, appropriate affect, intact judgment & insight - Labs CBC & Chem 7: 03/05/20 11:37 03/04/20 07:02 Labs: Microbiology - Last 24 Hours (Table) 02/28/20 23:22 Blood Culture - Final Blood No Growth after 144 hours Assessment and Plan Assessment: Acute hypoxic respiratory failure Covid 19 pneumonia with groundglass attenuation on CT and interstitial infiltrate bilaterally on x-ray Mild hyponatremia likely hypovolemic isotonic hyponatremia History of hypertension hypertensive cardiovascular disease Plan: Continue oxygen to keep saturation over 88 percent and above Prone positioning Deep breathing exercises incentive spirometry Continue supportive care Continue anticoagulation Continue Remdesivir for 5 days Continue IV steroids Time with Patient: Greater than 30
[2020-03-06 18:40] LABS: African American GFR (CKD) 106.4 (60.0-200.0); Albumin 3.1 g/dL (3.80-4.90); Albumin/Globulin Ratio 1.63 (1.60-3.17); BUN/Creat Ratio 36.25 Ratio (12.00-20.00); C Reactive Protein 1.3 mg/dL (0.0-0.8); Calcium 7.7 mg/dL (8.7-10.3); Globulin 1.9 g/dL (1.6-3.3); Non-African American GFR(CKD) 91.8 (60.0-200.0); Potassium 4.4 mmol/L (3.5-5.5); Total Bilirubin 0.5 mg/dL (0.3-1.2)
[2020-03-06] MEDS: diphenhydrAMINE 25 MG CAP PO PRN (20:14)
--- NOTE | 2020-03-06 20:46 | P.PN ---
Subjective Progress Note Date: 03/05/20 Principal diagnosis: Acute hypoxic respiratory failure secondary to covid 19 pneumonia. 69-year-old male came in with comments of shortness of breath. Patient was test is positive for covid mid 19 yesterday. Patient was discharged home shortly became short of breath came back to the hospital. Patient is presently on 3 L of oxygen. Patient symptoms has been going on for about 5-6 days patient was having chest discomfort and difficulty breathing patient is mildly hyponatremic. And had a CT angios the chest chest which did not show any pulmonary embolism which did show ground gap is obese days and a paced is consistent with Covid 19. Vision has bilateral hilar lymphadenopathy. 03/05/2020, patient seen and evaluated in room at bedside; remains short of breath, on 15 L nonrebreather mask oxygen saturation 100%, remains afebrile, patient remains on IV steroids breathing treatments and anticoagulation with Lovenox Objective - Vital Signs Vital signs: Vital Signs Temp 98 F 03/04/20 21:00 Pulse 79 03/04/20 21:00 Resp 22 03/04/20 21:00 BP 131/66 03/04/20 21:00 Pulse Ox 92 L 03/04/20 21:00 Intake & Output 03/04/20 03/04/20 03/05/20 06:59 18:59 06:59 Intake Total 500 250 Output Total 1000 Balance 500 -750 Intake: Intake, IV Titration 250 Amount Remdesivir (Eua) 100 mg 250 In Sodium Chloride 0.9% 250 ml @ 250 mls/hr IVPB DAILY@1600 [id number] Rx#: [id number] Oral 500 Output: Urine 1000 Other: # Voids 2 - Exam GENERAL: The patient is alert and oriented x3, not in any acute distress. Lethargic but arousable. Well developed, well nourished. HEENT: Pupils are round and equally reacting to light. EOMI. No scleral icterus. No conjunctival pallor. Normocephalic, atraumatic. No pharyngeal erythema. No thyromegaly. CARDIOVASCULAR: S1 and S2 present. No murmurs, rubs, or gallops. PULMONARY: Bilateral crackles in the decreased air entry into bilateral lung burnham, scattered rhonchi noted ABDOMEN: Soft, nontender, nondistended, normoactive bowel sounds. No palpable organomegaly. MUSCULOSKELETAL: No joint swelling or deformity. EXTREMITIES: No cyanosis, clubbing, or pedal edema. NEUROLOGICAL: Gross neurological examination did not reveal any focal deficits. SKIN: No rashes. - Labs CBC & Chem 7: 03/05/20 11:37 03/06/20 10:46 Labs: Abnormal Lab Results - Last 24 Hours (Table) 03/04/20 Range/Units 07:02 BUN/Creatinine Ratio 22.50 H (12.00-20.00) Ratio Calcium 7.2 L (8.7-10.3) mg/dL C-Reactive Protein 1.7 H (0.0-0.8) mg/dL Total Protein 4.7 L (6.2-8.2) g/dL Albumin 3.00 L (3.80-4.90) g/dL Microbiology - Last 24 Hours (Table) 02/28/20 23:22 Blood Culture - Preliminary Blood No Growth after 120 hours Assessment and Plan Assessment: -Acute hypoxic respiratory failure secondary to covid 19 pneumonia. Patient currently on dexamethasone, Lovenox, and remdesivir. infectious disease following. Zithromax completed -Hypovolemic hyponatremia: Secondary to diarrhea from coronavirus, improving. 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 Continue to attempt to wean off oxygen and increase activity as tolerated. Patient is currently on 8-10 L via high flow nasal cannula. Discussed with nursing staff about weaning FiO2 as tolerated. D dimer elevated at 2.20 and maintained on lovenox. CTA done previously shows no PE. Further recommendations to follow. Prognosis guarded. Patient may potentially need to go home on . Case management following.
[2020-03-07] MEDS: methylPREDNISolone SOD SUCCI 125 MG/2 ML VIAL IV SCH ×5 (00:36→23:25)
--- NOTE | 2020-03-07 01:13 | PN ---
PROGRESS NOTE DATE OF SERVICE: 03/06/2020 REASON FOR FOLLOWUP: Acute COVID-19 infection. INTERVAL HISTORY: Patient was seen on rounds this afternoon. The patient overall is feeling better. He is breathing more comfortably and is currently off supplemental oxygen. No nausea, vomiting or diarrhea. PHYSICAL EXAMINATION: Blood pressure 127/76, pulse of 73, temperature 97. He was 97% on room air. General description is an elderly male lying in bed in no distress. Respiratory system: Unlabored breathing with decreased intensity of breath sounds. No wheeze or crackles. Heart S1-S2 regular rate and rhythm. ABDOMEN: Soft, no tenderness. LABS: BUN of 29, creatinine 0.8. DIAGNOSTIC IMPRESSION AND PLAN: Patient with acute COVID-19 pneumonia in this patient who seemed to have shown clinical improvement as he was doing 97% on room air, but now with drop in sats again. Solu Medrol will be continued in addition to the vitamin C, Lovenox, repeat inflammatory markers tomorrow and continue supportive care. MMODL / IJN: [id number] /
[2020-03-07] MEDS: LORazepam 2 MG/ML INJ IV PRN ×2 (03:34→11:56)
--- NOTE | 2020-03-07 06:47 | XR ---
EXAMINATION TYPE: XR chest 1V portable DATE OF EXAM: 03/07/2020 CLINICAL HISTORY: Difficulty breathing pain and pneumonia progress study. TECHNIQUE: Single AP portable upright view of the chest is obtained. COMPARISON: Chest x-ray from 4 days earlier and older studies. FINDINGS: Background chronic emphysematous change with persistent bilateral peripheral opacities tho ugh there is some improvement from most recent x-ray noted. Some reticulation suggests fibrotic devel opment in the periphery. Cardiac silhouette size is stable and mildly enlarged. Right-sided tracheal deviation redemonstrated. Osseous structures are intact. IMPRESSION: Bilateral peripheral acute infiltrates redemonstrated, some improvement from most recent x-ray noted. Background cardiomegaly and chronic emphysematous change noted.
[2020-03-07 07:32] LABS: Glucose,Whole Blood 163 mg/dL (75-99)
[2020-03-07] MEDS: ALBUTEROL HFA INHALER INHALATION PRN ×3 (07:50→12:17)
[2020-03-07] MEDS: ASPIRIN 325 MG TAB PO SCH (08:34)
[2020-03-07] MEDS: ENOXAPARIN 40 MG/0.4 ML SYRINGE SQ SCH (08:34)
[2020-03-07] MEDS: ASCORBIC ACID 500 MG TAB PO SCH (08:34)
[2020-03-07] MEDS: atenoloL 25 MG TAB PO SCH (08:34)
[2020-03-07] MEDS: INSULIN ASPART (NovoLOG) 100 UNIT/ML VIAL SQ SCH ×4 (08:35→20:44)
[2020-03-07] MEDS: FAMOTIDINE 20 MG TAB PO SCH ×2 (08:42→20:16)
[2020-03-07] MEDS ORDERED: methylPREDNISolone SOD SUCCI 40 MG/ML 1 ML VIAL IV SCH (09:00)
[2020-03-07 09:55] LABS: African American GFR (CKD) 112.4 (60.0-200.0); Anion Gap 8.4 mmol/L (4.00-12.00); BUN/Creat Ratio 42.86 Ratio (12.00-20.00); Calcium 7.8 mg/dL (8.7-10.3); Carbon Dioxide 25.6 mmol/L (21.6-31.8); Potassium 4.5 mmol/L (3.5-5.5)
[2020-03-07 11:16] LABS: Glucose,Whole Blood 117 mg/dL (75-99)
--- NOTE | 2020-03-07 11:20 | P.PN ---
Subjective Progress Note Date: 03/07/20 Principal diagnosis: Acute hypoxic respiratory failure Covid 19 pneumonia with groundglass attenuation on CT and interstitial infiltrate bilaterally on x-ray Mild hyponatremia likely hypovolemic isotonic hyponatremia History of hypertension hypertensive cardiovascular disease 03/07/2020, patient seen eval examined during the rounds labs reviewed medications reviewed care plan discussed, denies any chest pain, still short of breath, now on 15 L high flow oxygen, saturations are 97 percent, FiO2 have been decreased to 14 L now, chest x-ray performed yesterday shows bilateral acute infiltrate consistent with Covid 19 pneumonia slight improvement however has been noted 03/06/2020, patient seen eval examined during the rounds labs reviewed medications reviewed care plan discussed, patient remains afebrile, oxygen saturation slightly better now 95% on 15 L nonrebreather mask, C reactive slightly better, 03/05/2020, patient seen eval examined during the rounds labs reviewed medications reviewed remains short of breath, on 15 L nonrebreather mask oxygen saturation 100%, remains afebrile, patient remains on IV steroids breathing treatments and anticoagulation with Lovenox 03/04/2020, patient seen eval examined during the rounds remains short of breath denies any chest pain or sputum production, currently on 15 L high flow oxygen saturation is 92%, somewhat decreased compared to last 24-48 hours with high requirements, chest x-ray showed bilateral worsening of infiltrate consistent with Covid 19 pneumonia with cytokines jose 03/03/2020, patient seen eval examined during the rounds remains on 10 L high flow oxygen, chest x-ray is reviewed bilateral infiltrate are present slightly worsening has been noted, patient is afebrile, generalized weakness present, 03/02/2020, patient seen eval examined during the rounds labs reviewed medications reviewed, remains on high flow oxygen 10 L saturation is 95%, patient remains on therapy, hemodynamically stable, continue prone positioning as much as possible with deep breathing exercise incentive spirometry This is a 69-year-old male with significant history of TIA and hypertension with hypertensive cardiovascular disease well controlled came into the hospital with increasing shortness of breath and desaturation, patient was diagnosed with Covid 19 pneumonia 2 days ago, initially patient was on 3 L oxygen, lately have been on nonrebreather mask saturation is 90-94% anxious, computed tomography scan shows bilateral groundglass attenuation, chest x-ray shows prominent interstitium slightly worse compared to prior exam, patient has elevated inflammatory parameters, patient has been appropriately started on Decadron, REM does wear, Lovenox and zinc, he is also placed on respiratory and droplet isol ation, latest oxygen saturation is 94% on 15 L nonrebreather mask Objective - Vital Signs Vital signs: Vital Signs Temp 97.1 F L 03/07/20 08:00 Pulse 60 03/07/20 08:00 Resp 18 03/07/20 08:00 BP 132/77 03/07/20 08:00 Pulse Ox 97 03/07/20 08:00 Intake & Output 03/06/20 03/07/20 03/07/20 18:59 06:59 18:59 Other: Voiding Method Urinal Urinal # Voids 3 1 - Exam - Constitutional General appearance: average body habitus, disheveled - EENT Eyes: EOMI, PERRLA Ears: bilateral: normal - Neck Neck: normal ROM Carotids: bilateral: upstroke normal Thyroid: bilateral: normal size - Respiratory Respiratory: bilateral: CTA - Cardiovascular Rhythm: regular Heart sounds: normal: S1, S2 - Gastrointestinal General gastrointestinal: normal bowel sounds - Neurologic Neurologic: CNII-XII intact - Musculoskeletal Musculoskeletal: gait normal, generalized weakness, strength equal bilaterally - Psychiatric Psychiatric: A&O x's 3, appropriate affect, intact judgment & insight - Labs CBC & Chem 7: 03/05/20 11:37 03/07/20 04:38 Labs: Abnormal Lab Results - Last 24 Hours (Table) 03/06/20 03/07/20 03/07/20 Range/Units 10:46 04:38 04:38 D-Dimer 1.94 H (<0.60) mg/L FEU Sodium 134 L (135-145) mmol/L BUN 29.0 H 30.0 H (9.0-27.0) mg/dL BUN/Creatinine Ratio 36.25 H 42.86 H (12.00-20.00) Ratio Glucose 268 H 148 H (70-110) mg/dL POC Glucose (mg/dL) (75-99) mg/dL Calcium 7.7 L 7.8 L (8.7-10.3) mg/dL Lactate Dehydrogenase 360 H (120-246) U/L C-Reactive Protein 1.3 H (0.0-0.8) mg/dL Total Protein 5.0 L (6.2-8.2) g/dL Albumin 3.10 L (3.80-4.90) g/dL 03/07/20 03/07/20 Range/Units 07:31 11:14 D-Dimer (<0.60) mg/L FEU Sodium (135-145) mmol/L BUN (9.0-27.0) mg/dL BUN/Creatinine Ratio (12.00-20.00) Ratio Glucose (70-110) mg/dL POC Glucose (mg/dL) 163 H 117 H (75-99) mg/dL Calcium (8.7-10.3) mg/dL Lactate Dehydrogenase (120-246) U/L C-Reactive Protein (0.0-0.8) mg/dL Total Protein (6.2-8.2) g/dL Albumin (3.80-4.90) g/dL Assessment and Plan Assessment: Acute hypoxic respiratory failure Covid 19 pneumonia with groundglass attenuation on CT and interstitial infiltrate bilaterally on x-ray Mild hyponatremia likely hypovolemic isotonic hyponatremia History of hypertension hypertensive cardiovascular disease Plan: Continue oxygen to keep saturation over 88 percent and above Prone positioning Deep breathing exercises incentive spirometry Continue supportive care Continue anticoagulation Status post Remdesivir for 5 days Continue IV steroids Time with Patient: Greater than 30
[2020-03-07] MEDS: LORazepam 0.5 MG TAB PO PRN (16:45)
[2020-03-07 17:26] LABS: Glucose,Whole Blood 169 mg/dL (75-99)
--- NOTE | 2020-03-07 18:23 | P.PN ---
Subjective Progress Note Date: 03/06/20 Principal diagnosis: Acute hypoxic respiratory failure secondary to covid 19 pneumonia. 69-year-old male came in with comments of shortness of breath. Patient was test is positive for covid mid 19 yesterday. Patient was discharged home shortly became short of breath came back to the hospital. Patient is presently on 3 L of oxygen. Patient symptoms has been going on for about 5-6 days patient was having chest discomfort and difficulty breathing patient is mildly hyponatremic. And had a CT angios the chest chest which did not show any pulmonary embolism which did show ground gap is obese days and a paced is consistent with Covid 19. Vision has bilateral hilar lymphadenopathy. 03/05/2020, patient seen and evaluated in room at bedside; remains short of breath, on 15 L nonrebreather mask oxygen saturation 100%, remains afebrile, patient remains on IV steroids breathing treatments and anticoagulation with Lovenox 03/06/2020 Patient is seen and evaluated in follow-up; patient remains afebrile; continue to require oxygen Remains on 15 L nonrebreather mask saturating 95%; inflammatory markers are being monitored and continued to show improvement; patient remains on steroids, bronchodilators and anticoagulation with Lovenox; pulmonary service is following and recommending to continue current management Objective - Vital Signs Vital signs: Vital Signs Temp 97.4 F L 03/06/20 14:10 Pulse 63 03/06/20 19:45 Resp 20 03/06/20 19:45 BP 127/76 03/06/20 19:45 Pulse Ox 96 03/06/20 20:28 Intake & Output 03/06/20 03/06/20 03/07/20 06:59 18:59 06:59 Intake Total 290 Output Total 700 Balance -410 Intake: Oral 290 Output: Urine 700 Other: Voiding Method Urinal Urinal # Voids 3 - Exam GENERAL: The patient is alert and oriented x3, not in any acute distress. L ethargic but arousable. Well developed, well nourished. HEENT: Pupils are round and equally reacting to light. EOMI. No scleral icterus. No conjunctival pallor. Normocephalic, atraumatic. No pharyngeal erythema. No thyromegaly. CARDIOVASCULAR: S1 and S2 present. No murmurs, rubs, or gallops. PULMONARY: Bilateral crackles in the decreased air entry into bilateral lung burnham, scattered rhonchi noted ABDOMEN: Soft, nontender, nondistended, normoactive bowel sounds. No palpable organomegaly. MUSCULOSKELETAL: No joint swelling or deformity. EXTREMITIES: No cyanosis, clubbing, or pedal edema. NEUROLOGICAL: Gross neurological examination did not reveal any focal deficits. SKIN: No rashes. - Labs CBC & Chem 7: 03/05/20 11:37 03/07/20 04:38 Labs: Abnormal Lab Results - Last 24 Hours (Table) 03/06/20 Range/Units 10:46 Sodium 134 L (135-145) mmol/L BUN 29.0 H (9.0-27.0) mg/dL BUN/Creatinine Ratio 36.25 H (12.00-20.00) Ratio Glucose 268 H (70-110) mg/dL Calcium 7.7 L (8.7-10.3) mg/dL C-Reactive Protein 1.3 H (0.0-0.8) mg/dL Total Protein 5.0 L (6.2-8.2) g/dL Albumin 3.10 L (3.80-4.90) g/dL Microbiology - Last 24 Hours (Table) 02/28/20 23:22 Blood Culture - Final Blood No Growth after 144 hours Assessment and Plan Assessment: -Acute hypoxic respiratory failure secondary to covid 19 pneumonia. Patient currently on dexamethasone, Lovenox, and remdesivir. infectious disease follow ing. Zithromax completed -Hypovolemic hyponatremia: Secondary to diarrhea from coronavirus, improving. 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 Continue to attempt to wean off oxygen and increase activity as tolerated. Patient is currently on 8-10 L via high flow nasal cannula. Discussed with nursing staff about weaning FiO2 as tolerated. D dimer elevated at 2.20 and maintained on lovenox. CTA done previously shows no PE. Further recommendations to follow. Prognosis guarded. Patient may pot entially need to go home on 02. Case management following.
[2020-03-07 20:21] LABS: Glucose,Whole Blood 129 mg/dL (75-99)
[2020-03-07] MEDS: diphenhydrAMINE 25 MG CAP PO PRN (20:48)
[2020-03-08] MEDS: LORazepam 0.5 MG TAB PO PRN ×3 (00:26→22:15)
[2020-03-08] MEDS: methylPREDNISolone SOD SUCCI 125 MG/2 ML VIAL IV SCH ×3 (05:29→17:34)
--- NOTE | 2020-03-08 06:09 | PN ---
PROGRESS NOTE DATE OF SERVICE: 03/07/2020 REASON FOR FOLLOWUP: COVID-19 infection. INTERVAL HISTORY: The patient is currently afebrile. The patient was put back on the oxygen. The patient denies having any chest pain, shortness of breath. Minimal cough. No abdominal pain or diarrhea. PHYSICAL EXAMINATION: Blood pressure 136/80 with a pulse of 60, temperature 97.4. He is 97% on 15 L high- flow oxygen. General description is an elderly male lying in bed in no distress. RESPIRATORY SYSTEM: Unlabored breathing, decreased intensity of breath sounds. No wheeze. HEART: S1, S2. Regular rate and rhythm. ABDOMEN: Soft, no tenderness. LABS: D-dimer is 1.94, down from previous reading of 2.20. Creatinine 0.7. DIAGNOSTIC IMPRESSION AND PLAN: Patient with acute COVID-19 infection in this patient has completed his remdesivir therapy currently on steroids, bronchodilators and Lovenox to continue. Chest x-ray showed some improvement. Continue with supportive care. MMODL / IJN: [id number] /
[2020-03-08 07:35] LABS: Glucose,Whole Blood 147 mg/dL (75-99)
[2020-03-08] MEDS: ALBUTEROL HFA INHALER INHALATION PRN ×3 (08:36→20:44)
[2020-03-08] MEDS: ASCORBIC ACID 500 MG TAB PO SCH (08:52)
[2020-03-08] MEDS: ASPIRIN 325 MG TAB PO SCH (08:52)
[2020-03-08] MEDS: ENOXAPARIN 40 MG/0.4 ML SYRINGE SQ SCH (08:52)
[2020-03-08] MEDS: INSULIN ASPART (NovoLOG) 100 UNIT/ML VIAL SQ SCH ×4 (08:52→19:56)
[2020-03-08] MEDS: atenoloL 25 MG TAB PO SCH (08:53)
[2020-03-08] MEDS: FAMOTIDINE 20 MG TAB PO SCH ×2 (08:53→19:56)
[2020-03-08 09:51] LABS: African American GFR (CKD) 106.4 (60.0-200.0); BUN/Creat Ratio 42.5 Ratio (12.00-20.00); Non-African American GFR(CKD) 91.8 (60.0-200.0)
[2020-03-08 11:46] LABS: Glucose,Whole Blood 189 mg/dL (75-99)
--- NOTE | 2020-03-08 11:46 | P.PN ---
Subjective Progress Note Date: 03/08/20 Principal diagnosis: Acute hypoxic respiratory failure Covid 19 pneumonia with groundglass attenuation on CT and interstitial infiltrate bilaterally on x-ray Mild hyponatremia likely hypovolemic isotonic hyponatremia History of hypertension hypertensive cardiovascular disease 03/08/2020, patient seen eval examined during the rounds labs reviewed medications reviewed, patient remains on 30 L, refuses BiPAP machine at nighttime, cough congestion shortness is still there but severity appears to have improved, 03/07/2020, patient seen eval examined during the rounds labs reviewed medications reviewed care plan discussed, denies any chest pain, still short of breath, now on 15 L high flow oxygen, saturations are 97 percent, FiO2 have been decreased to 14 L now, chest x-ray performed yesterday shows bilateral acute infiltrate consistent with Covid 19 pneumonia slight improvement however has been noted 03/06/2020, patient seen eval examined during the rounds labs reviewed medications reviewed care plan discussed, patient remains afebrile, oxygen saturation slightly better now 95% on 15 L nonrebreather mask, C reactive slightly better, 03/05/2020, patient seen eval examined during the rounds labs reviewed medications reviewed remains short of breath, on 15 L nonrebreather mask oxygen saturation 100%, remains afebrile, patient remains on IV steroids breathing treatments and anticoagulation with Lovenox 03/04/2020, patient seen eval examined during the rounds remains short of breath denies any chest pain or sputum production, currently on 15 L high flow oxygen saturation is 92%, somewhat decreased compared to last 24-48 hours with high requirements, chest x-ray showed bilateral worsening of infiltrate consistent with Covid 19 pneumonia with cytokines jose 03/03/2020, patient seen eval examined during the rounds remains on 10 L high flow oxygen, chest x-ray is reviewed bilateral infiltrate are present slightly worsening has been noted, patient is afebrile, generalized weakness present, 03/02/2020, patient seen eval examined during the rounds labs reviewed medications reviewed, remains on high flow oxygen 10 L saturation is 95%, patient remains on therapy, hemodynamically stable, continue prone positioning as much as possible with deep breathing exercise incentive spirometry This is a 69-year-old male with significant history of TIA and hypertension with hypertensive cardiovascular disease well controlled came into the hospital with increasing shortness of breath and desaturation, patient was diagnosed with Covid 19 pneumonia 2 days ago, initially patient was on 3 L oxygen, lately have been on nonrebreather mask saturation is 90-94% anxious, computed tomography scan shows bilateral groundglass attenuation, chest x-ray shows prominent interstitium slightly worse compared to prior exam, patient has elevated inflammatory parameters, patient has been appropriately started on Decadron, REM does wear, Lovenox and zinc, he is also placed on respiratory and droplet isolation, latest oxygen saturation is 94% on 15 L nonrebreather mask Objective - Vital Signs Vital signs: Vital Signs Temp 97.3 F L 03/08/20 08:00 Pulse 56 L 03/08/20 08:00 Resp 18 03/08/20 08:00 BP 130/71 03/08/20 08:00 Pulse Ox 98 03/08/20 08:37 Intake & Output 03/07/20 03/08/20 03/08/20 18:59 06:59 18:59 Other: Voiding Method Urinal Urinal # Voids 2 2 - Exam - Constitutional General appearance: average body habitus, disheveled - EENT Eyes: EOMI, PERRLA Ears: bilateral: normal - Neck Neck: normal ROM Carotids: bilateral: upstroke normal Thyroid: bilateral: normal size - Respiratory Respiratory: bilateral: CTA - Cardiovascular Rhythm: regular Heart sounds: normal: S1, S2 - Gastrointestinal General gastrointestinal: normal bowel sounds - Neurologic Neurologic: CNII-XII intact - Musculoskeletal Musculoskeletal: gait normal, generalized weakness, strength equal bilaterally - Psychiatric Psychiatric: A&O x's 3, appropriate affect, intact judgment & insight - Labs CBC & Chem 7: 03/05/20 11:37 03/08/20 05:50 Labs: Abnormal Lab Results - Last 24 Hours (Table) 03/07/20 03/07/20 03/08/20 Range/Units 17:24 20:20 05:50 BUN 34.0 H (9.0-27.0) mg/dL BUN/Creatinine Ratio 42.50 H (12.00-20.00) Ratio Glucose 199 H (70-110) mg/dL POC Glucose (mg/dL) 169 H 129 H (75-99) mg/dL Calcium 8.0 L (8.7-10.3) mg/dL 03/08/20 Range/Units 07:25 BUN (9.0-27.0) mg/dL BUN/Creatinine Ratio (12.00-20.00) Ratio Glucose (70-110) mg/dL POC Glucose (mg/dL) 147 H (75-99) mg/dL Calcium (8.7-10.3) mg/dL Assessment and Plan Assessment: Acute hypoxic respiratory failure Covid 19 pneumonia with groundglass attenuation on CT and interstitial infiltrate bilaterally on x-ray Mild hyponatremia likely hypovolemic isotonic hyponatremia History of hypertension hypertensive cardiovascular disease Plan: Continue oxygen to keep saturation over 88 percent and above Prone positioning Deep breathing exercises incentive spirometry Continue supportive care Continue anticoagulation Status post Remdesivir for 5 days Continue IV steroids Time with Patient: Greater than 30
[2020-03-08] MEDS ORDERED: IPRATROPIUM-ALBUTEROL 3 ML NEB INHALATION PRN (15:22)
[2020-03-08 15:37] LABS: Glucose,Whole Blood 96 mg/dL (75-99)
[2020-03-08] MEDS: CHOLECALCIFEROL 1,000 UNIT TAB PO SCH (15:42)
[2020-03-08] MEDS: ZINC SULFATE 220 MG CAP PO SCH (15:42)
[2020-03-08] MEDS: IPRATROPIUM-ALBUTEROL 3 ML NEB INHALATION SCH ×2 (17:07→20:45)
[2020-03-08 17:10] LABS: Glucose,Whole Blood 135 mg/dL (75-99)
[2020-03-08 19:01] LABS: Glucose,Whole Blood 173 mg/dL (75-99)
[2020-03-08] MEDS: diphenhydrAMINE 25 MG CAP PO PRN (19:56)
[2020-03-08] MEDS: FORMOTEROL FUMARATE 20 MCG/2 ML NEBU INHALATION SCH (20:45)
--- NOTE | 2020-03-09 00:25 | P.PN ---
Subjective Progress Note Date: 03/08/20 This is a 69-year-old male who was recently admitted with shortness of breath and also acute hypoxic respiratory secondary to Covid 19 pneumonia and is being closely monitored. Patient is being followed by pulmonary. Patient is maintained on IV steroids along with albuterol inhaler. Patient continues to remain on 10-15 L high flow oxygen will no real improvements. Duonebs along with incentive spirometer was ordered as well as zinc. Review of systems: Constitutional: Reports fatigue, no reports of fever, or chills Cardiovascular: No reports of chest pain or palpitations Respiratory: Reports shortness of breath and cough GI: No reports of nausea, vomiting, or diarrhea, reports decreased appetite : No reports of dysuria or retention Neurovascular: reports generalized weakness All medications have been reviewed Active Medications Acetaminophen (Acetaminophen Tab 500 Mg Tab) 1,000 mg PO Q6HR PRN PRN Reason: Fever>101 Albuterol Sulfate (Albuterol Hfa Inhaler) 2 puff INHALATION RT-Q6H PRN PRN Reason: Shortness Of Breath Or Wheezing Last Admin: 03/08/20 20:44 Dose: 2 puff Documented by: Albuterol/Ipratropium (Ipratropium-Albuterol 3 Ml Neb) 3 ml INHALATION RT-QID PRN PRN Reason: Shortness Of Breath Or Wheezing Albuterol/Ipratropium (Ipratropium-Albuterol 3 Ml Neb) 3 ml INHALATION RT-QID [facility] Last Admin: 03/08/20 20:45 Dose: Not Given Documented by: Ascorbic Acid (Ascorbic Acid 500 Mg Tab) 1,000 mg PO DAILY [facility] Last Admin: 03/08/20 08:52 Dose: 1,000 mg Documented by: Aspirin (Aspirin 325 Mg Tab) 325 mg PO DAILY [facility] Last Admin: 03/08/20 08:52 Dose: 325 mg Documented by: Atenolol (Atenolol 25 Mg Tab) 25 mg PO DAILY [facility] Last Admin: 03/08/20 08:53 Dose: 25 mg Documented by: Cholecalciferol (Cholecalciferol 1,000 Unit Tab) 1,000 unit PO DAILY [facility] Last Admin: 03/08/20 15:42 Dose: 1,000 unit Documented by: Diphenhydramine HCl (Diphenhydramine 25 Mg Cap) 25 mg PO HS PRN PRN Reason: Insomnia Last Admin: 03/08/20 19:56 Dose: 25 mg Documented by: Enoxaparin Sodium (Enoxaparin 40 Mg/0.4 Ml Syringe) 40 mg SQ Q24HR [facility] Last Admin: 03/08/20 08:52 Dose: 40 mg Documented by: Famotidine (Famotidine 20 Mg Tab) 20 mg PO BID [facility] Last Admin: 03/08/20 19:56 Dose: 20 mg Documented by: Formoterol Fumarate (Formoterol Fumarate 20 Mcg/2 Ml Nebu) 20 mcg INHALATION RT-BID [facility] Last Admin: 03/08/20 20:45 Dose: Not Given Documented by: Insulin Aspart (Insulin Aspart (Novolog) 100 Unit/Ml Vial) 0 unit SQ ACHS [facility]; Protocol Last Admin: 03/08/20 19:56 Dose: 4 unit Documented by: Lorazepam (Lorazepam 0.5 Mg Tab) 0.5 mg PO Q6HR PRN PRN Reason: Agitation Last Admin: 03/08/20 22:15 Dose: 0.5 mg Documented by: Methylprednisolone Sodium Succinate (Methylprednisolone Sod Succi 125 Mg/2 Ml Vial) 60 mg IV Q12HR [facility] Zinc Sulfate (Zinc Sulfate 220 Mg Cap) 220 mg PO DAILY [facility] Last Admin: 03/08/20 15:42 Dose: 220 mg Documented by: Objective - Vital Signs Vital signs: Vital Signs Temp 97.5 F L 03/08/20 14:00 Pulse 69 03/08/20 14:00 Resp 16 03/08/20 16:06 BP 118/72 03/08/20 14:00 Pulse Ox 95 03/08/20 16:06 Intake & Output 03/07/20 03/08/20 03/08/20 18:59 06:59 18:59 Other: Voiding Method Urinal Urinal # Voids 2 2 - Exam GENERAL: The patient is alert and oriented x3, not in any acute distress. Lethargic but arousable. Well developed, well nourished. Temp is 97.5F, pulse is 69, respirations are 16, blood pressure is 118/72, oxygen saturation is 97% on 10 L high flow HEENT: Pupils are round and equally reacting to light. EOMI. No scleral icterus. No conjunctival pallor. Normocephalic, atraumatic. No pharyngeal erythema. No thyromegaly. CARDIOVASCULAR: S1 and S2 present. No murmurs, rubs, or gallops. PULMONARY: decreased air entry into bilateral lung [place], scattered rhonchi noted ABDOMEN: Soft, nontender, nondistended, normoactive bowel sounds. No palpable organomegaly. MUSCULOSKELETAL: No joint swelling or deformity. EXTREMITIES: No cyanosis, clubbing, or pedal edema. NEUROLOGICAL: Gross neurological examination did not reveal any focal deficits. SKIN: No rashes. - Labs CBC & Chem 7: 03/05/20 11:37 03/08/20 05:50 Labs: Abnormal Lab Results - Last 24 Hours (Table) 03/07/20 03/07/20 03/08/20 Range/Units 17:24 20:20 05:50 BUN 34.0 H (9.0-27.0) mg/dL BUN/Creatinine Ratio 42.50 H (12.00-20.00) Ratio Glucose 199 H (70-110) mg/dL POC Glucose (mg/dL) 169 H 129 H (75-99) mg/dL Calcium 8.0 L (8.7-10.3) mg/dL 03/08/20 03/08/20 Range/Units 07:25 11:44 BUN (9.0-27.0) mg/dL BUN/Creatinine Ratio (12.00-20.00) Ratio Glucose (70-110) mg/dL POC Glucose (mg/dL) 147 H 189 H (75-99) mg/dL Calcium (8.7-10.3) mg/dL Assessment and Plan Assessment: -Acute hypoxic respiratory failure secondary to covid 19 pneumonia. -Hypovolemic hyponatremia: Secondary to diarrhea from coronavirus, improving. 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 Continue to attempt to wean off oxygen and increase activity as tolerated. Patient is currently on 10-15 L via high flow nasal cannula. Discussed with nursing staff about weaning FiO2 as tolerated. Duonebs ordered along with performorist. Patient has completed course of Remdesivir. Patient is maintained on IV steroids and will titrate down. Further recommendations to follow. Prognosis guarded. Patient may potentially need to go home on 02. Case management following. Will repeat am chest xray. Possible discharge in 24-48 hours.
--- NOTE | 2020-03-09 02:24 | PN ---
PROGRESS NOTE DATE OF SERVICE: 03/08/2020 REASON FOR FOLLOWUP: COVID-19 infection. INTERVAL HISTORY: The patient is currently afebrile, has been breathing comfortably. FiO2 is cut down to 6 L. No chest pain or cough. No abdominal pain or diarrhea. PHYSICAL EXAMINATION: Blood pressure 161/74 with a pulse of 65, temperature 97.4. He is 96% on 6 L nasal cannula. General description is an elderly male lying in bed in no distress. RESPIRATORY SYSTEM: Unlabored breathing with decreased intensity of breath sounds. No wheeze. HEART: S1, S2. Regular rate and rhythm. ABDOMEN: Soft, no tenderness. LABS: No new labs have been obtained today. DIAGNOSTIC IMPRESSION AND PLAN: Patient with acute COVID-19 pneumonia in this patient completed his remdesivir therapy. He seems to be slowly clinically responding. We will cut back on his steroids to q.12 hours and slowly wean him off and continue with supportive care. MMODL / IJN: [id number] /
[2020-03-09] MEDS: LORazepam 0.5 MG TAB PO PRN ×2 (04:07→15:26)
[2020-03-09 07:12] LABS: Glucose,Whole Blood 139 mg/dL (75-99)
[2020-03-09 07:13] LABS: Basophils % (A) 0 %; Eosinophils % (A) 0 %; HCT 41.4 % (39.0-53.0); HGB 13.8 gm/dL (13.0-17.5); Lymphocytes # (A) 1.4 k/uL (1.0-4.8); Lymphocytes % (A) 15 %; MCH 29.8 pg (25.0-35.0); MCHC 33.4 g/dL (31.0-37.0); MCV 89.1 fL (80.0-100.0); Mean Platelet Volume 8.3; Monocytes # (A) 0.3 k/uL (0-1.0); Monocytes % (A) 4 %; Neutrophils # (A) 7.4 k/uL (1.3-7.7); Neutrophils % (A) 80 %; Platelet Count 146 k/uL (150-450); RBC 4.65 m/uL (4.30-5.90); RDW 13.4 % (11.5-15.5); WBC 9.3 k/uL (3.8-10.6)
[2020-03-09 07:50] VITALS: RESP 18
[2020-03-09] MEDS: IPRATROPIUM-ALBUTEROL 3 ML NEB INHALATION SCH ×3 (08:30→15:40)
[2020-03-09] MEDS: FORMOTEROL FUMARATE 20 MCG/2 ML NEBU INHALATION SCH (08:30)
[2020-03-09] MEDS: ALBUTEROL HFA INHALER INHALATION PRN (08:32)
[2020-03-09] MEDS: ASCORBIC ACID 500 MG TAB PO SCH (08:36)
[2020-03-09] MEDS: CHOLECALCIFEROL 1,000 UNIT TAB PO SCH (08:36)
[2020-03-09] MEDS: atenoloL 25 MG TAB PO SCH (08:36)
[2020-03-09] MEDS: ZINC SULFATE 220 MG CAP PO SCH (08:36)
[2020-03-09] MEDS: ASPIRIN 325 MG TAB PO SCH (08:36)
[2020-03-09] MEDS: FAMOTIDINE 20 MG TAB PO SCH (08:36)
[2020-03-09] MEDS: INSULIN ASPART (NovoLOG) 100 UNIT/ML VIAL SQ SCH ×3 (08:36→17:52)
--- NOTE | 2020-03-09 08:37 | XR ---
EXAMINATION TYPE: XR chest 1V portable DATE OF EXAM: 03/09/2020 CLINICAL HISTORY: Difficulty breathing and covid pneumonia progress study. TECHNIQUE: Single AP portable upright view of the chest is obtained. COMPARISON: Chest x-ray from 2 days earlier and older studies. CTA chest February 29, 2020 FINDINGS: Background chronic emphysematous change with persistent bilateral peripheral opacities rig ht greater than left redemonstrated. Some reticulation redemonstrated suggesting fibrotic development in the periphery. Cardiac silhouette size is stable and mildly enlarged with atherosclerotic aorta. Right-sided tracheal deviation redemonstrated. Osseous structures are intact. IMPRESSION: Bilateral peripheral acute infiltrates redemonstrated without significant change from mos t recent x-ray. Background cardiomegaly and chronic emphysematous and pulmonary fibrotic change noted .
[2020-03-09] MEDS ORDERED: methylPREDNISolone SOD SUCCI 125 MG/2 ML VIAL IV SCH (09:00)
[2020-03-09 10:15] LABS: African American GFR (CKD) 106.4 (60.0-200.0); Anion Gap 5.5 mmol/L (4.00-12.00); BUN/Creat Ratio 47.5 Ratio (12.00-20.00); Calcium 7.8 mg/dL (8.7-10.3); Carbon Dioxide 25.5 mmol/L (21.6-31.8); Non-African American GFR(CKD) 91.8 (60.0-200.0); Potassium 4.4 mmol/L (3.5-5.5)
[2020-03-09] MEDS: ENOXAPARIN 40 MG/0.4 ML SYRINGE SQ SCH (10:57)
[2020-03-09 11:25] LABS: Glucose,Whole Blood 167 mg/dL (75-99)
[2020-03-09 11:48] VITALS: BP 145/59; PULSE 59; TEMP 97.9
[2020-03-09 17:12] LABS: Glucose,Whole Blood 146 mg/dL (75-99)
--- NOTE | 2020-03-09 17:27 | PN ---
PROGRESS NOTE DATE OF SERVICE: 03/09/2020 REASON FOR FOLLOWUP: COVID-19 pneumonia. INTERVAL HISTORY: Patient is currently afebrile, has been breathing comfortably. Patient denies having any chest pain or shortness of breath. Minimal cough. No abdominal pain. No diarrhea. Currently on 2 L cannula. PHYSICAL EXAMINATION: Blood pressure 145/50 with a pulse of 59. Temperature is 97.9. He is 97% on 2 L nasal cannula. General description is an elderly male up in the in no distress. Respiratory system: Unlabored breathing. Decreased breath sounds in the bases. No wheeze. HEART: S1, S2. Regular rate and rhythm. ABDOMEN: Soft, no tenderness. LABS: Hemoglobin 10.8, white count 9.3, creatinine 0.8. DIAGNOSTIC IMPRESSION AND PLAN: Patient with acute COVID-19 pneumonia in this patient who has shown overall clinical improvement has completed his Remdesivir therapy and his O2 requirement is down to 2 L sating 96%. Chest x-ray with no worsening. He will finish a course of oral zinc along with oxygen and close outpatient followup. MMODL / IJN: [id number] /
--- NOTE | 2020-03-09 19:59 | P.PN ---
Subjective Progress Note Date: 03/09/20 Principal diagnosis: Acute hypoxic respiratory failure Covid 19 pneumonia with groundglass attenuation on CT and interstitial infiltrate bilaterally on x-ray Mild hyponatremia likely hypovolemic isotonic hyponatremia History of hypertension hypertensive cardiovascular disease 03/09/2020, patient seen eval examined during the rounds labs reviewed medications reviewed, patient has been doing slightly better oxygen saturation is improved to 96% on 2 L high flow oxygen, saturation improved to 96%, patient is being planned for discharge, earlier today chest x-ray continued to show bilateral bed for infiltrate without any significant change, 03/08/2020, patient seen eval examined during the rounds labs reviewed medications reviewed, patient remains on 30 L, refuses BiPAP machine at nighttime, cough congestion shortness is still there but severity appears to have improved, 03/07/2020, patient seen eval examined during the rounds labs reviewed medications reviewed care plan discussed, denies any chest pain, still short of breath, now on 15 L high flow oxygen, saturations are 97 percent, FiO2 have been decreased to 14 L now, chest x-ray performed yesterday shows bilateral acute infiltrate consistent with Covid 19 pneumonia slight improvement however has been noted 03/06/2020, patient seen eval examined during the rounds labs reviewed medications reviewed care plan discussed, patient remains afebrile, oxygen saturation slightly better now 95% on 15 L nonrebreather mask, C reactive slightly better, 03/05/2020, patient seen eval examined during the rounds labs reviewed medications reviewed remains short of breath, on 15 L nonrebreather mask oxygen saturation 100%, remains afebrile, patient remains on IV steroids breathing treatments and anticoagulation with Lovenox 03/04/2020, patient seen eval examined during the rounds remains short of breath denies any chest pain or sputum production, currently on 15 L high flow oxygen saturation is 92%, somewhat decreased compared to last 24-48 hours with high requirements, chest x-ray showed bilateral worsening of infiltrate consistent with Covid 19 pneumonia with cytokines jose 03/03/2020, patient seen eval examined during the rounds remains on 10 L high flow oxygen, chest x-ray is reviewed bilateral infiltrate are present slightly worsening has been noted, patient is afebrile, generalized weakness present, 03/02/2020, patient seen eval examined during the rounds labs reviewed medications reviewed, remains on high flow oxygen 10 L saturation is 95%, patient remains on therapy, hemodynamically stable, continue prone positioning as much as possible with deep breathing exercise incentive spirometry This is a 69-year-old male with significant history of TIA and hypertension with hypertensive cardiovascular disease well controlled came into the hospital with increasing shortness of breath and desaturation, patient was diagnosed with Covid 19 pneumonia 2 days ago, initially patient was on 3 L oxygen, lately have been on nonrebreather mask saturation is 90-94% anxious, computed tomography sc an shows bilateral groundglass attenuation, chest x-ray shows prominent interstitium slightly worse compared to prior exam, patient has elevated inflammatory parameters, patient has been appropriately started on Decadron, REM does wear, Lovenox and zinc, he is also placed on respiratory and droplet isolation, latest oxygen saturation is 94% on 15 L nonrebreather mask Objective - Vital Signs Vital signs: Vital Signs Temp 97.9 F 03/09/20 11:47 Pulse 59 L 03/09/20 11:47 Resp 18 03/09/20 11:47 BP 145/59 03/09/20 11:47 Pulse Ox 96 03/09/20 11:47 Intake & Output 03/09/20 03/09/20 03/10/20 06:59 18:59 06:59 Intake Total 100 Output Total 200 Balance -200 100 Intake: IV 100 .9@20 100 Oral 0 Output: Urine 200 Other: Voiding Method Urinal Urinal # Voids 3 1 # Bowel Movements 2 - Exam - Constitutional General appearance: average body habitus, disheveled - EENT Eyes: EOMI, PERRLA Ears: bilateral: normal - Neck Neck: normal ROM Carotids: bilateral: upstroke normal Thyroid: bilateral: normal size - Respiratory Respiratory: bilateral: CTA - Cardiovascular Rhythm: regular Heart sounds: normal: S1, S2 - Gastrointestinal General gastrointestinal: normal bowel sounds - Neurologic Neurologic: CNII-XII intact - Musculoskeletal Musculoskeletal: gait normal, generalized weakness, strength equal bilaterally - Psychiatric Psychiatric: A&O x's 3, appropriate affect, intact judgment & insight - Labs CBC & Chem 7: 03/09/20 06:30 03/09/20 06:30 Labs: Abnormal Lab Results - Last 24 Hours (Table) 03/09/20 03/09/20 03/09/20 Range/Units 06:30 06:30 07:11 Plt Count 146 L (150-450) k/uL BUN 38.0 H (9.0-27.0) mg/dL BUN/Creatinine Ratio 47.50 H (12.00-20.00) Ratio Glucose 162 H (70-110) mg/dL POC Glucose (mg/dL) 139 H (75-99) mg/dL Calcium 7.8 L (8.7-10.3) mg/dL 03/09/20 03/09/20 Range/Units 11:25 17:11 Plt Count (150-450) k/uL BUN (9.0-27.0) mg/dL BUN/Creatinine Ratio (12.00-20.00) Ratio Glucose (70-110) mg/dL POC Glucose (mg/dL) 167 H 146 H (75-99) mg/dL Calcium (8.7-10.3) mg/dL Assessment and Plan Assessment: Acute hypoxic respiratory failure Covid 19 pneumonia with groundglass attenuation on CT and interstitial infiltrate bilaterally on x-ray Mild hyponatremia likely hypovolemic isotonic hyponatremia History of hypertension hypertensive cardiovascular disease Plan: Continue oxygen to keep saturation over 88 percent and above Prone positioning Deep breathing exercises incentive spirometry Continue supportive care Continue anticoagulation Status post Remdesivir for 5 days Continue oral steroids as outpatient Time with Patient: Greater than 30
--- NOTE | 2020-03-09 22:19 | P.DS ---
Providers Date of admission: 02/29/20 01:29 Expected date of discharge: 03/09/20 Attending physician: Kelly Lay Consults: 02/29/20 01:29 Consult Physician Stat Consulting Provider: Violet Oconnor Consult Reason/Comments: Covid Do you want consulting provider notified?: Yes 03/01/20 08:37 Consult Physician Urgent Consulting Provider: Vijay Allison Consult Reason/Comments: covid Do you want consulting provider notified?: Yes Primary care physician: Stated None Hospital Course: Final diagnosis -Acute hypoxic respiratory failure secondary to covid 19 pneumonia. 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 Patient will follow-up with Dr. Allison in the outpatient setting upon discharge. Patient also instructed to continue with prednisone taper along with albuterol and DuoNeb nebulizer treatments, zinc, and vitamin C supplements in the outpatient setting. Patient will require oxygen upon discharge related to Covid 19 pneumonia and hypoxia. Total time taken is greater than 35 minutes. History of present illness This is a 69-year-old male who was recently admitted with shortness of breath and acute hypoxic respiratory failure secondary to Covid 19 pneumonia and was being closely monitored. Infectious disease and pulmonary following closely. Patient was maintained on IV steroids along with lovenox, zinc, and completed the course of Remdesivir. Patient continued to require HF oxygen via NC and was slow to improve. Patient was evaluated for home 02 today and qualified as he was 86% on room air while at rest. Patient will also continue with nebulized treatments in the outpatient setting 4 times daily and as needed along with pulmicort 1mg BID. Patient will follow up with pulmonary Dr. Allison in the outpatient setting in one week. Currently no reports of chest pain, worsening shortness of breath, or palpitations. Patient is afebrile. No reports of nausea or vomiting and patient is tolerating diet. Patient will be discharged home today. Patient instructed to continue to use the incentive spirometer at least 10 times every hour while awake. Patient instructed to continue to quarantine for an additional 7-10 days and until symptom free for 3 days and pcp follow-up. Guarded prognosis On exam vital signs are stable. Temp is 97.9F, pulse is 59, respirations are 18, blood pressure is 145/59, oxygen saturation is 96% on 2 L via NC. Cardio S1, S2 are muffled. Respiratory system shows diminished breath sounds at the bases with no wheezing or rhonchi noted. Abdomen is soft and non-tender. Nervous system shows no focal deficits. Please refer to medication reconciliation sheet for a list of medications. Patient Condition at Discharge: Stable Plan - Discharge Summary Discharge Rx Participant: No New Discharge Prescriptions: New LORazepam [Ativan] 0.5 mg PO Q6HR PRN #6 tab PRN Reason: Agitation Ipratropium-Albuterol Nebulize [Duoneb 0.5 mg-3 mg/3 ml Soln] 3 ml INHALATION RT-QID 30 Days #120 ml Ipratropium-Albuterol Nebulize [Duoneb 0.5 mg-3 mg/3 ml Soln] 3 ml INHALATION RT-QID PRN ml PRN Reason: Shortness Of Breath Or Wheezing Zinc Sulfate [Orazinc] 220 mg PO DAILY 30 Days #30 cap Famotidine [Pepcid] 20 mg PO BID 30 Days #60 tab predniSONE 10 mg PO DIRECTED #30 tab Budesonide [Pulmicort] 1 mg INHALATION BID 30 Days #30 neb Albuterol Inhaler [Ventolin Hfa Inhaler] 2 puff INHALATION RT-Q6H PRN 30 Days #1 puff PRN Reason: Shortness Of Breath Or Wheezing Cholecalciferol [Vitamin D3 (25 Mcg = 1000 Iu)] 1,000 unit PO DAILY 30 Days #30 tab Continue diphenhydrAMINE [Benadryl] 25 mg PO HS PRN PRN Reason: Insomnia Aspirin EC [Ecotrin] 325 mg PO HS Ascorbic Acid [Vitamin C] 1,000 mg PO HS Acetaminophen Tab [Tylenol] 1,000 mg PO Q6H PRN PRN Reason: Fever And/ Or Pain atenoloL [Atenolol] 25 mg PO HS Discharge Medication List Acetaminophen Tab [Tylenol] 1,000 mg PO Q6H PRN 02/28/20 [History] Ascorbic Acid [Vitamin C] 1,000 mg PO HS 02/28/20 [History] Aspirin EC [Ecotrin] 325 mg PO HS 02/28/20 [History] atenoloL [Atenolol] 25 mg PO HS 02/28/20 [History] diphenhydrAMINE [Benadryl] 25 mg PO HS PRN 02/28/20 [History] Albuterol Inhaler [Ventolin Hfa Inhaler] 2 puff INHALATION RT-Q6H PRN 30 Days #1 puff 03/09/20 [Rx] Budesonide [Pulmicort] 1 mg INHALATION BID 30 Days #30 neb 03/09/20 [Rx] Cholecalciferol [Vitamin D3 (25 Mcg = 1000 Iu)] 1,000 unit PO DAILY 30 Days #30 tab 03/09/20 [Rx] Famotidine [Pepcid] 20 mg PO BID 30 Days #60 tab 03/09/20 [Rx] Ipratropium-Albuterol Nebulize [Duoneb 0.5 mg-3 mg/3 ml Soln] 3 ml INHALATION RT-QID 30 Days #120 ml 03/09/20 [Rx] Ipratropium-Albuterol Nebulize [Duoneb 0.5 mg-3 mg/3 ml Soln] 3 ml INHALATION RT-QID PRN ml 03/09/20 [Rx] LORazepam [Ativan] 0.5 mg PO Q6HR PRN #6 tab 03/09/20 [Rx] Zinc Sulfate [Orazinc] 220 mg PO DAILY 30 Days #30 cap 03/09/20 [Rx] predniSONE 10 mg PO DIRECTED #30 tab 03/09/20 [Rx] Follow up Appointment(s)/Referral(s): None,Stated [Primary Care Provider] - 1-2 days Vijay Allison MD [STAFF PHYSICIAN] - 03/18/20 12:15 pm (This appointment is set for [place] office, inside of Dr. Devine's office [address] [place] [address]) Patient Instructions/Handouts: Viral Pneumonia (DC) Activity/Diet/Wound Care/Special Instructions: the pt will be d/c home today with home o2 and neb to treat covid, hypoxia and pneumonia. pt will go home on duoneb 4times a day and PRN and pulmoncort 1mg BID. pt info and scripts sent to [facility]. Activity Limited until follow-up Follow-up with primary care provider upon discharge Follow-up with pulmonary in the outpatient setting Continue steroid taper until finished Continue with DuoNeb breathing inhalational treatments 4 times daily and as needed Continue with Pulmicort twice daily Discharge Disposition: HOME SELF-CARE
== END 2020-03-09 19:14 | disposition home or self-care (01) | DRG 177 ==
LOC: EC 21:40 → 4SSUR 02-29 01:29 → 6NMEDSUR 02-29 20:45
PROVIDERS: ADMIT Hospitalist; ATTEND Hospitalist
PROC: XW033E5 Introduction of Remdesivir Anti-infective into Peripheral Vein, Percutaneous Approach, New Technology Group 5 (ICD-10-PCS; principal; 2020-02-29)
DX: U07.1 COVID-19 (principal); J12.89 Other viral pneumonia; J96.01 Acute respiratory failure with hypoxia; E87.1 Hypo-osmolality and hyponatremia; R59.0 Localized enlarged lymph nodes; E66.9 Obesity, unspecified; E86.1 Hypovolemia; I11.9 Hypertensive heart disease without heart failure; F06.4 Anxiety disorder due to known physiological condition; R19.7 Diarrhea, unspecified; Z79.52 Long term (current) use of systemic steroids; Z79.82 Long term (current) use of aspirin; Z79.899 Other long term (current) drug therapy; Z88.8 Allergy status to other drugs, medicaments and biological substances; Z91.041 Radiographic dye allergy status; Z86.73 Personal history of transient ischemic attack (TIA), and cerebral infarction without residual deficits; Z68.30 Body mass index [BMI] 30.0-30.9, adult; Z83.1 Family history of other infectious and parasitic diseases
CPT/HCPCS: 36415; 71045; 71275; 80048; 80053; 82550; 82728; 83605; 83615; 83735; 84145; 85025; 85379; 85610; 85730; 86140; 87040; 87449; 87635; 93005; 94640; 94660; 94760; 96361; 96365; 96366; 96367; 96372; 96374; 96375; 99285

== ENCOUNTER → 2021-06-07 | Outpatient (CLI) | payer MEDICARE, OTHER ==
--- NOTE | 2021-06-07 15:15 | US ---
EXAMINATION TYPE: US carotid duplex BILAT DATE OF EXAM: 06/07/2021 COMPARISON: NONE CLINICAL HISTORY: [id number], [id number] HISTORY OF CEA. EXAM MEASUREMENTS: RIGHT: Peak Systolic Velocity (PSV) cm/sec ----- Right CCA: 53.7 ----- Right ICA: 150.9 ----- Right ECA: 91.9 ICA/CCA ratio: 2.8 RIGHT: End Diastole cm/sec ----- Right CCA: 19.7 ----- Right ICA: 62.3 ----- Right ECA: 24.8 LEFT: Peak Systolic Velocity (PSV) cm/sec ----- Left CCA: 73.2 ----- Left ICA: 98.2 ----- Left ECA: 78.4 ICA/CCA ratio: 1.3 LEFT: End Diastole cm/sec ----- Left CCA: 23.7 ----- Left ICA: 24.5 ----- Left ECA: 20.1 VERTEBRALS (direction of flow): Right Vertebral: Antegrade Left Vertebral: Antegrade Rhythm: Normal Moderate to severe eccentric plaque bilateral carotid bulbs. Increased peak systolic velocity and end diastolic velocity right internal carotid artery with abnormal ratio. IMPRESSION: [id number] atherosclerotic changes bilaterally. There is hemodynamically signifi cant stenosis estimated 50-69% in the right proximal internal carotid artery thought present. Criteria for Assigning % of Stenosis / Diameter reduction (Estimation based on the indirect measurements of the internal carotid artery velocities (ICA PSV). 1. Normal (no stenosis)=ICA PSV < 125 cm/s: ratio < 2.0: ICA EDV<40 cm/s. 2. Less than 50% stenosis=ICA PSV < 125 cm/s: ratio < 2.0: ICA EDV<40 cm/s. 3. 50 to 69% stenosis=ICA PSV of 125 to 230 cm/s: ration 2.0 ? 4.0: ICA EDV 40-100 cm/s. 4. Greater than 70% stenosis to near occlusion= ICA PSV > 230 cm/s: ratio > 4.0: ICA EDV > 100 cm/s. 5. Near occlusion= ICA PSV velocities may be low or undetectable: variable ratio and ICA EDV. 6. Total occlusion=unable to detect flow.
--- NOTE | 2021-06-07 15:47 | CTL ---
EXAMINATION TYPE: CT Low Dose Lung DATE OF EXAM ORDERED: 06/07/2021 HISTORY: Z 87.891. Lung cancer screening, personal history tobacco use CT DLP: 85.[address] CTDI: 2.40 mGy Automated exposure control for dose reduction was used. SCREENING VISIT: 1 COMPARISON: CT chest 02/29/2020 TECHNIQUE: Low dose computed tomography scan was performed through the chest at 1 mm thick sections a nd reconstructed images in multiple planes at 1 mm and [address] DIAGNOSTIC QUALITY: Satisfactory FINDINGS: LUNG NODULES: None. LUNGS: COPD: Severity: Mild Fibrosis: Severity: None Lymph nodes: None Other findings: RIGHT PLEURAL SPACE: Effusion: None Calcification: None Thickening: None Pneumothorax: None LEFT PLEURAL SPACE: Effusion: None Calcification: None Thickening: None Pneumothorax: None HEART: Heart Size: Normal Coronary Calcification: Moderate Pericardial Effusion: None OTHER FINDINGS: Upper abdomen: Question some minimal nodularity to the right adrenal gland, likely stable Bony thorax: None Supraclavicular region: None Other: None IMPRESSION: Negative CT LUNG RAD AND CT CHEST RECOMMENDATION: Lung-Rad 1 Negative: Continue annual screening with LDCT in 12 months. S Modifier (other clinically significant findings): None
== END | disposition home or self-care (01) ==
LOC: RADCTMAIN 13:38
PROVIDERS: ATTEND Internal Medicine
DX: Z12.2 Encounter for screening for malignant neoplasm of respiratory organs (principal); I65.23 Occlusion and stenosis of bilateral carotid arteries; Z87.891 Personal history of nicotine dependence; Z98.890 Other specified postprocedural states
CPT/HCPCS: 71271; 93880

== ENCOUNTER → 2021-07-04 | Outpatient (CLI) | payer MEDICARE, OTHER ==
--- NOTE | 2021-07-04 16:41 | US ---
EXAMINATION TYPE: US kidneys/renal and bladder DATE OF EXAM: 07/04/2021 COMPARISON: NONE CLINICAL HISTORY: 70-year-old male N18.31 CHR KIDNEY DISEASE STAGE 3. CKD, bilateral flank pain at ti mes TECHNIQUE: Multiple sonographic images of the kidneys and bladder are obtained. FINDINGS: EXAM MEASUREMENTS: Right Kidney: 11.2 x 5.1 x 6.1 cm Left Kidney: 10.1 x 4.5 x 5.3 cm Right Kidney: No hydronephrosis or masses seen Left Kidney: No hydronephrosis or masses seen Bladder: There seems to be some mild circumferential wall thickening up to 6 mm. Both ureteral jets a re visualized. IMPRESSION: 1. No hydronephrosis. 2. Mild circumferential bladder wall thickening at the 6 mm, probably chronic bladder wall hypertroph y.
== END | disposition home or self-care (01) ==
LOC: RADUSWWP 13:20
PROVIDERS: ATTEND Internal Medicine
DX: N32.89 Other specified disorders of bladder (principal)
CPT/HCPCS: 76770

== ENCOUNTER 2021-10-26 08:49 | Day surgery (SDC) | payer MEDICARE, OTHER ==
[2021-10-25 11:57] VITALS: BMI 30.5
[~2021-10-26 08:49] MED LIST: LACTATED RINGERS 1,000 ML IV SCH
[2021-10-26 09:20] VITALS: TEMP 96.6
[2021-10-26] MEDS ORDERED: LIDOCAINE 1% (10MG/ML) FOR IV START INTRADERMA ONE (09:23)
[2021-10-26 09:35] LABS: Glucose,Whole Blood 138 mg/dL (70-110)
[2021-10-26] MEDS ORDERED: LIDOCAINE 2% INJ 20 MG/ML (2 ML VIAL) ONE (10:18)
[2021-10-26] MEDS ORDERED: PROPOFOL 10 MG/ML 20 ML VIAL IV ONE (10:18)
--- NOTE | 2021-10-26 10:33 | P.PCN ---
Date of Procedure: 10/26/21 Procedure(s) Performed: Brief history: Patient is a pleasant 70-year-old white male scheduled for an elective upper endoscopy as well as colonoscopy as a part of evaluation of GERD/collagenous throat area and screening for colon cancer Procedure performed: Esophagogastroduodenoscopy with biopsy Colonoscopy with snare polypectomy Preoperative diagnosis: GERD/collagenous throat area Screening for colon cancer Anesthesia: MAC Procedure: After informed consent was obtained from the patient was brought into the endoscopy unit and IV sedation was administered by anesthesia under continuous monitoring. Initially upper endoscopy was done. The Olympus GF 160 video endoscope was inserted inserted into the mouth and esophagus intubated without any difficulty and was gradually advanced into the stomach and duodenum and carefully examined. The bulb and second part of the duodenum appeared normal. The scope was then withdrawn into the stomach adequately insufflated with air and upon careful examination the antrum had mild gastritis and biopsies were done from this area. The body, cardia and fundus appeared normal. The scope was then withdrawn into the esophagus. The GE junction was located at 38 cm to the incisors. It appeared irregular with no erythema erosions or ulcerations. There was a short segment of Agustin's esophagus extending 3 mm proximal to the GE junction which was biopsied. Rest of the esophagus appeared normal. Patient tolerated the procedure well. At this time the patient continued to remain sedation. Initial digital rectal examination was normal. Olympus CF 160 video colonoscope was then inserted into the rectum and gradually advanced to the cecum without any difficulty. Careful examination was performed as the scope was gradually being withdrawn. The prep was excellent. The cecum, had a 1 cm polyp removed by snare polypectomy. In the ascending colon there was a 3 mm polyp removed by snare polypectomy. Rest of the ascending colon, transverse colon, descending colon, sigmoid colon and rectum appeared normal. In the sigmoid colon there was a 5 limited polyp removed by snare polypectomy. Retroflexion was performed in the rectum and no lesions were noted. Patient tolerated the procedure well. Impression: 1. Upper endoscopy revealed antral gastritis and short segment Agustin's esophagus 2. Colonoscopy revealed: a) 10 mm cecal polyp status post polypectomy b) 3 mm ascending colon polyp status post polypectomy c) 5 mm sigmoid polyp status post snare polypectomy Recommendations: Findings of this examination were discussed with the patient as well as his family. He was advised to follow with the biopsy results. If the biopsy reveal s presence of adenoma and Agustin's esophagus he can have a repeat upper endoscopy and colonoscopy in 3 years.
[2021-10-26 10:56] VITALS: BP 140/95; PULSE 65; RESP 18
== END 2021-10-26 11:10 | disposition home or self-care (01) ==
LOC: ORWHC2ENDO 08:49
PROVIDERS: ATTEND Internal Medicine Gastroenterology
DX: Z12.11 Encounter for screening for malignant neoplasm of colon (principal); D12.0 Benign neoplasm of cecum; D12.5 Benign neoplasm of sigmoid colon; K63.5 Polyp of colon; K29.50 Unspecified chronic gastritis without bleeding; K21.00 Gastro-esophageal reflux disease with esophagitis, without bleeding; I10 Essential (primary) hypertension; E78.5 Hyperlipidemia, unspecified; Z87.891 Personal history of nicotine dependence; E11.9 Type 2 diabetes mellitus without complications; M19.90 Unspecified osteoarthritis, unspecified site; Z86.73 Personal history of transient ischemic attack (TIA), and cerebral infarction without residual deficits; Z79.84 Long term (current) use of oral hypoglycemic drugs; Z79.82 Long term (current) use of aspirin; Z79.899 Other long term (current) drug therapy; Z91.048 Other nonmedicinal substance allergy status; Z91.09 Other allergy status, other than to drugs and biological substances
CPT/HCPCS: 88305; 45385; 43239; J2704; J2001

== ENCOUNTER → 2021-11-16 | Outpatient (CLI) | payer MEDICARE, OTHER ==
[2021-11-16 17:54] LABS: HDL Cholesterol 26.2 mg/dL (40.00-60.00)
[2021-11-16 18:06] LABS: Chol/HDL Ratio 8.78 Ratio
== END | disposition home or self-care (01) ==
LOC: LABWHC1 11:25
PROVIDERS: ATTEND Internal Medicine Endocrinology, Diabetes & Metabolism
DX: E78.1 Pure hyperglyceridemia (principal); R73.09 Other abnormal glucose
CPT/HCPCS: 36415; 80061; 83721

== ENCOUNTER → 2022-04-26 | Outpatient (CLI) | payer MEDICARE, OTHER ==
[2022-04-26 19:22] LABS: Basophils # (A) 0.08 X 10*3/uL (0.00-0.10); Basophils % (A) 0.8 %; Eosinophils # (A) 0.31 X 10*3/uL (0.04-0.35); Eosinophils % (A) 3.2 %; HCT 45.5 % (39.6-50.0); HGB 14.4 g/dL (13.0-17.0); Immature Grans, Automated 0.3 %; Lymphocytes # (A) 3.32 X 10*3/uL (0.90-5.00); Lymphocytes % (A) 34.5 %; MCHC 31.6 g/dL (32.0-37.0); MCV 91.5 fL (80.0-97.0); Mean Platelet Volume 12.1 fL (9.5-12.2); Monocytes # (A) 0.77 X 10*3/uL (0.20-1.00); NRBC Per 100 WBC 0 /100 WBCS (0.0-0.0); Neutrophils # (A) 5.11 X 10*3/uL (1.80-7.70); Neutrophils % (A) 53.2 %; Platelet Count 176 X 10*3/uL (140-440); RBC 4.97 X 10*6/uL (4.40-5.60); RDW 13.7 % (11.5-14.5); WBC 9.62 X 10*3/uL (4.50-10.00)
[2022-04-27 10:21] LABS: African American GFR (CKD) 70.6 (60.0-200.0); Albumin 4.3 g/dL (3.8-4.9); Albumin/Globulin Ratio 1.87 (1.60-3.17); Anion Gap 9.4 mmol/L (10.00-18.00); BUN/Creat Ratio 16.5 Ratio (12.00-20.00); Blood Urea Nitrogen 19.8 mg/dL (9.0-27.0); Calcium 9.7 mg/dL (8.7-10.3); Carbon Dioxide 24.6 mmol/L (20.0-27.5); Globulin 2.3 g/dL (1.6-3.3); Non-African American GFR(CKD) 60.9 (60.0-200.0); Potassium 4.8 mmol/L (3.5-5.5); Total Bilirubin 0.4 mg/dL (0.30-1.20); Total Protein 6.6 g/dL (6.2-8.2)
== END | disposition home or self-care (01) ==
LOC: LABWHC1 12:05
PROVIDERS: ATTEND Internal Medicine
DX: I10 Essential (primary) hypertension (principal)
CPT/HCPCS: 36415; 80053; 85025

== ENCOUNTER → 2022-07-18 | Outpatient (CLI) | payer MEDICARE, OTHER ==
--- NOTE | 2022-07-18 14:28 | US ---
EXAMINATION TYPE: US carotid duplex BILAT DATE OF EXAM: 07/18/2022 COMPARISON: US in PACs CLINICAL HISTORY: R91.1 pulmonary nodule, I65.23 car art stenosis. right endarterectomy in 2016, pt g ets annual carotid scans TECHNIQUE: Carotid duplex ultrasound examination. Indirect Doppler criteria was utilized. FINDINGS: EXAM MEASUREMENTS: RIGHT: Peak Systolic Velocity (PSV) cm/sec ----- Right CCA: 47.4 ----- Right ICA: 224.7 ----- Right ECA: 93.3 ICA/CCA ratio: 4.7 RIGHT: End Diastole cm/sec ----- Right CCA: 13.2 ----- Right ICA: 74.1 ----- Right ECA: 16.6 LEFT: Peak Systolic Velocity (PSV) cm/sec ----- Left CCA: 73.8 ----- Left ICA: 79.0 ----- Left ECA: 78.4 ICA/CCA ratio: 1.1 LEFT: End Diastole cm/sec ----- Left CCA: 14.5 ----- Left ICA: 25.8 ----- Left ECA: 15.0 VERTEBRALS (direction of flow): Right Vertebral: Antegrade Left Vertebral: Antegrade Rhythm: Normal DR[employer] NOTES: Moderate to severe bilateral intimal thickening, more so on right. Right bulb and ICA stenosis. IMPRESSION: 1. 50-69% stenosis of the right carotid bifurcation. Velocities have increased from prior on 2. 2. Less than 50% stenosis of the left carotid bifurcation. Criteria for Assigning % of Stenosis / Diameter reduction (Estimation based on the indirect measurements of the internal carotid artery velocities (ICA PSV). 1. Normal (no stenosis)=ICA PSV < 125 cm/s: ratio < 2.0: ICA EDV<40 cm/s. 2. Less than 50% stenosis=ICA PSV < 125 cm/s: ratio < 2.0: ICA EDV<40 cm/s. 3. 50 to 69% stenosis=ICA PSV of 125 to 230 cm/s: ration 2.0 ? 4.0: ICA EDV 40-100 cm/s. 4. Greater than 70% stenosis to near occlusion= ICA PSV > 230 cm/s: ratio > 4.0: ICA EDV > 100 cm/s. 5. Near occlusion= ICA PSV velocities may be low or undetectable: variable ratio and ICA EDV. 6. Total occlusion=unable to detect flow.
--- NOTE | 2022-07-18 14:47 | CT ---
EXAMINATION TYPE: CT chest wo con DATE OF EXAM: 07/18/2022 COMPARISON: 06/07/2021 HISTORY: Pulmonary nodule CT DLP: 471.[address] of the chest was performed with lung and mediastinal window settings submitted. The la ck of contrast limits evaluation of the vascular, mediastinal and parenchymal structures including th e upper abdomen. LUNGS: Hyperinflation compatible with COPD. The lungs are clear and free of infiltrate. No atelectasi s. No pulmonary nodule or mass is detected. No pleural effusion. No CT evidence of interstitial ida ng disease. MEDIASTINUM/MABLE: Thoracic aorta is of normal caliber with limited evaluation given lack of contrast . The heart is not enlarged. No evidence for mediastinal mass. No lymph nodes greater than 1cm. UPPER ABDOMEN: No significant abnormality is seen. OTHER: No significant other abnormality. IMPRESSION: 1. COPD without evidence for distinct pulmonary nodule.
== END | disposition home or self-care (01) ==
LOC: RADUSWWP 13:12
PROVIDERS: ATTEND Internal Medicine
DX: J44.9 Chronic obstructive pulmonary disease, unspecified (principal); I65.23 Occlusion and stenosis of bilateral carotid arteries; R91.1 Solitary pulmonary nodule
CPT/HCPCS: 71250; 93880

== ENCOUNTER → 2022-12-14 | Outpatient (CLI) | payer MEDICARE, OTHER ==
[2022-12-14 21:06] LABS: ALT 56 U/L (10-49); AST 41 U/L (14-35); Albumin 4.4 d/dL (3.8-4.9); Albumin/Globulin Ratio 1.47 Ratio (1.60-3.17); Alkaline Phosphatase 70 U/L (41-126); Blood Urea Nitrogen 23.4 mg/dL (9.0-27.0); Calcium 9.9 mg/dL (8.7-10.3); Carbon Dioxide 25.1 mmol/L (21.6-31.8); Chloride 105 mmol/L (96-109); Chol/HDL Ratio 9.39 Ratio; Glucose 114 mg/dL (70-110); LDL Cholesterol,Calculated 169.2 mg/dL (0.0-131.0); Potassium 5.2 mmol/L (3.5-5.5); Sodium 142 mmol/L (135-145); Total Bilirubin 0.5 mg/dL (0.3-1.2); Total Protein 7.4 d/dL (6.2-8.2)
== END | disposition home or self-care (01) ==
LOC: LABWHC1 12:29
PROVIDERS: ATTEND Internal Medicine Endocrinology, Diabetes & Metabolism
DX: E11.9 Type 2 diabetes mellitus without complications (principal)
CPT/HCPCS: 36415; 80053; 80061; 82043; 82570; 83036; 84443

== ENCOUNTER 2023-01-26 13:40 | Emergency (ER) | payer MEDICARE, OTHER ==
--- NOTE | 2023-01-26 14:19 | ED ---
Chest Pain HPI - General Source: RN notes reviewed <Jacki Pang - Last Filed: 01/26/23 14:18> - General Source: patient, RN notes reviewed, old records reviewed <Javed Champagne - Last Filed: 01/26/23 21:39> - General Stated Complaint: Chest/Back/Groin Pain Time Seen by Provider: 01/26/23 14:18 - History of Present Illness Initial Comments: Patient is a 72-year-old male who presents the emergency department for chest pain. Patient has had intermittent chest pain for the past couple months. Pain is now radiating to his back and shoulder Patient states it hurts when he presses on his chest. He denies shortness of breath. (Jacki Pang) Patient is a 72-year-old male who presents with the Department to be evaluated for chest pain. Has had intermit chest pain over the last few months 2 weeks. Seems to be on his chest wall as it is worse with movements as well as with palpation. States it moves, from near his sternum, to under his left arm. Occasionally. Always seems to be on the chest wall as it hurts with movement and palpation at these sites. States it does go to his back however points towards his left neck. States it is intermittent and seems to be somewhat positional based on sleeping as well as movement. Denies any shortness of breath. Has had multiple EKGs at his PCPs office for similar complaints the last few months and they will checked out. States this is typical for his discomfort however he was concerned because it has been moving towards his armpit occasionally which is why he wanted to be evaluated as he was unable to see his PCP. Denies any abdominal pain, nausea, vomiting. Denies any other acute complaints at this time. Presents for further evaluation at this time. Patient is also complaining of a right hip strain which occurred last week and has been having continued right hip pain.Patient originally evaluated and seen as a quick note.Patient is currently asymptomatic. Patient has no cardiac history. (Javed Champagne) - Related Data Home Medications Medication Instructions Recorded Confirmed Acetaminophen Tab [Tylenol] 1,000 mg PO DIRECTED PRN 02/28/20 10/26/21 Aspirin EC [Ecotrin] 325 mg PO DAILY 02/28/20 10/26/21 atenoloL 25 mg PO HS 02/28/20 10/26/21 diphenhydrAMINE [Benadryl] 25 mg PO HS PRN 02/28/20 10/26/21 icosapent ethyL [Vascepa] 1 gm PO BID-W/MEALS 10/25/21 10/26/21 metFORMIN HCL [Glucophage] 500 mg PO BID-W/MEALS 10/25/21 10/26/21 Allergies Allergy/AdvReac Type Severity Reaction Status Date / Time clopidogrel [From Plavix] Allergy Unknown Rash/Hives, Verified 10/26/21 09:20 itching ezetimibe [From Zetia] Allergy Unknown headaches, Verified 10/26/21 09:20 eye pain, lower extremity tingling omeprazole Allergy Unknown Itching Verified 10/26/21 09:20 iodine Allergy Itching Verified 10/26/21 09:20 Iodine and Iodide Containing Allergy Itching Verified 10/26/21 09:20 Produc Yoennot-XXP-YbA Reductase Allergy Anaphylaxis Verified 10/26/21 09:20 Inhibitor [Slldbdz-Frb-Qex Reductase Inhibitor] Review of Systems ROS Other: All systems not noted in ROS Statement are negative. <Jacki Pang - Last Filed: 01/26/23 14:18> ROS Other: All systems not noted in ROS Statement are negative. <Javed Champagne - Last Filed: 01/26/23 21:39> ROS Statement: Those systems with pertinent positive or pertinent negative responses have been documented in the HPI. Review of Systems: CONST: Denies fever EYES: Denies blurry vision ENT: Denies nasal congestion C/V: Endorses chest wall pain RESP: Denies shortness of breath GI: Denies abdominal pain : Denies dysuria SKIN: Denies rash. MSK: Endorses right hip pain NEURO: Denies headache (Javed Champagne) EKG Findings - EKG Comments: EKG Findings:: 12-lead Electrocardiogram Interpretation Note. EKG was reviewed and interpreted by myself. 12-lead ECG performed at 1432 is interpreted by me as revealing normal sinus rhythm at a rate of 64 beats per minute. [place] is normal. [place] interval is 201 ms, QRS duration is 89 ms, QTc is 419 ms. There were no ST or T wave abnormalities to suggest myocardial ischemia or injury. R wave progression across the precordium was satisfactory. By my interpretation this EKG is non-diagnostic for acute ischemia. - EKG Results: EKG: interpreted by ERMD <Javed Champagne - Last Filed: 01/26/23 21:39> Past Medical History Past Medical History: CVA/TIA, Diabetes Mellitus, GERD/Reflux, Hyperlipidemia, Hypertension, Osteoarthritis (OA) Additional Past Medical History / Comment(s): TIA (2016)., Hospitalized for Covid 2020., History of Any Multi-Drug Resistant Organisms: None Reported Past Surgical History: No Surgical Hx Reported Additional Past Surgical History / Comment(s): carotid endarterectomy (2016), cataracts. Past Anesthesia/Blood Transfusion Reactions: No Reported Reaction Past Psychological History: Anxiety Additional Psychological History / Comment(s): anxiety prior to procedures Smoking Status: Former smoker Past Alcohol Use History: None Reported Additional Past Alcohol Use History / Comment(s): quit 2015, hx of 2 ppd. Past Drug Use History: None Reported - Past Family History Mother Family Medical History: Cancer Brother(s) Family Medical History: Cancer <Jacki Pang - Last Filed: 01/26/23 14:18> General Exam <Jacki Pang - Last Filed: 01/26/23 14:18> <Javed Champagne - Last Filed: 01/26/23 21:39> - General Exam Comments Initial Comments: Visual Physical Exam Vital signs reviewed General: Well-appearing, nontoxic, no acute distress. Head: Normocephalic, atraumatic Eyes: PERRLA, EOMI ENT: Airway patent Chest: Nonlabored breathing Skin: No visual rash, normal skin tone Neuro: Alert and oriented 3 Musculoskeletal: No gross abnormalities (Jacki Pang) General: Appears in no acute distress. HEAD: Normal with no signs of head trauma. EYES: PERRLA, EOMI, conjunctiva normal, no discharge. ENT: Hearing grossly intact, normal oropharynx. RESPIRATORY: Clear breath sounds bilaterally. No wheezes, rales, or rhonchi. C/V: Regular rate and rhythm. S1 and S2 auscultated, no edema, peripheral pulses 2+ and intact throughout ABD: Abd is soft, nontender, nondistended EXT: Normal range of motion, no obvious deformity. No chest wall pain at this time. No neck pain. No hip pain. SKIN: No rashes or lesions observed on exposed skin. NEURO: Alert and oriented 4. (Javed Champagne) Course Vital Signs 01/26/23 01/26/23 14:17 18:56 Temperature 97.1 F L Pulse Rate 74 71 Respiratory 16 18 Rate Blood Pressure 173/94 144/81 O2 Sat by Pulse 94 L 95 Oximetry Chest Pain MDM <Jacki Pang - Last Filed: 01/26/23 14:18> <Javed Champagne - Last Filed: 01/26/23 21:39> - MDM I performed the QuickNote portion of this chart - Jacki Pang PA-C (Jacki Pang) Was pt. sent in by a medical professional or institution (CHANO Sharma, LAUNDERETTE ATTENDANT, urgent care, hospital, or [facility]...) When possible be specific @ -No Did you speak to anyone other than the patient for history (EMS, parent, family, police, friend...)? What history was obtained from this source @ -No Did you review nursing and triage notes (agree or disagree)? Why? @ -I reviewed and agree with nursing and triage notes Were old charts reviewed (outside hosp., previous admission, EMS record, old EKG, old radiological studies, urgent care reports/EKG's, [facility] records)? Report findings @ -Old charts reviewed Differential Diagnosis (chest pain, altered mental status, abdominal pain women, abdominal pain men, vaginal bleeding, weakness, fever, dyspnea, syncope, headache, dizziness, GI bleed, back pain, seizure, CVA, palpatations, mental health, musculoskeletal)? @ -Differential Chest Pain: Stable Angina, Unstable Angina, STEMI, NSTEMI Aortic Dissection, Pneumothorax, Musculoskeletal, Esophageal Spasm GERD, Cholecystitis, Pancreatitis, Zoster, this is not meant to be an all-inclusive list. EKG interpreted by me (3pts min.). @ -As above X-rays interpreted by me (1pt min.). @ -Chest x-ray reveals no obvious acute cardio pulmonary process. Pelvis x-ray reveals no obvious acute injury. CT interpreted by me (1pt min.). @ -CT PE reveals no evidence of pulmonary embolism. It does show a soft tissue density extending to the sternum with concern for possible trauma or malignancy. Consider tissue sampling for further workup per radiology. U/S interpreted by me (1pt. min.). @ -None done What testing was considered but not performed or refused? (CT, X-rays, U/S, labs)? Why? @ -None What meds were considered but not given or refused? Why? @ -None Did you discuss the management of the patient with other professionals (professionals i.e. , PA, LAUNDERETTE ATTENDANT, lab, RT, psych nurse, social worker school, corporation lawyer, teacher, campus police officer, family service caseworker)? Give summary @ -No Was smoking cessation discussed for >3mins.? @ -No Was critical care preformed (if so, how long)? @ -No Were there social determinants of health that impacted care today? How? (Homelessness, low income, unemployed, alcoholism, drug addiction, transportation, low edu. Level, literacy, decrease access to med. care, long term, rehab)? @ -No Was there de-escalation of care discussed even if they declined (Discuss DNR or withdrawal of care, Hospice)? DNR status @ -No What co-morbidities impacted this encounter? (DM, HTN, Smoking, COPD, CAD, Cancer, CVA, ARF, Chemo, Hep., AIDS, mental health diagnosis, sleep apnea, mor bid obesity)? @ -None Was patient admitted / discharged? Hospital course, mention meds given and route, prescriptions, significant lab abnormalities, going to OR and other pertinent info. @ -Based on the patient's presentation and physical exam, presents emergency department over concern for chronic chest wall pain as well as somewhat chronic right hip pain. Currently is asymptomatic. We will obtain cardio only workup. Was originally seen is a quick note this was completed. This includes an EKG that showed no signs of acute ischemia. Chest x-ray that was unremarkable. Patient's labs are within acceptable limits. This includes an undetectable troponin. I will add on a d-dimer as well as a second troponin me was in agreement with this plan. Vital signs within acceptable limits. Patiently to with IV Toradol as well as IV fluids. Second troponin is undetectable. D-dimer is mildly elevated. We will obtain CT PE 12 pulmonary embolism. He was in agreement with this plan. He was given premedications for it. CTPE negative for PE but does show soft tissue density that could represent at worst malignancy. Recommend follow-up. No other findings. I discussed results of the patient. The soft tissue density could explain his chest wall pain that has been intermittent over the last few months. Recommend a follow-up with Dr. Matthews on Sunday and outpatient follow-up. He was in agreement this plan. Remains asymptomatic. Does not appear to be cardiac pain as it is chest wall pain. He was in agreement this plan. He was given a copy of the images on a desk as well as the report for the CT imaging. I instructed the patient to follow up with their PCP in the next 1-3 days. I explained that the patient should return to the emergency department if they experience any worsening symptoms. Strict return precautions were discussed with the patient. The patient expressed understanding of these instructions. I answered all questions that the patient had. The patient was discharged home in good condition with their prescriptions and follow up information. Undiagnosed new problem with uncertain prognosis? @ -No Drug Therapy requiring intensive monitoring for toxicity (Heparin, Nitro, Insulin, Cardizem)? @ -No Were any procedures done? @ -No Diagnosis/symptom? @ -Chest wall pain, soft tissue density Acute, or Chronic, or Acute on Chronic? @ -Acute on chronic Uncomplicated (without systemic symptoms) or Complicated (systemic symptoms)? @ -Uncomplicated Side effects of treatment? @ -No Exacerbation, Progression, or Severe Exacerbation? @ -No Poses a threat to life or bodily function? How? (Chest pain, [place], [place], pneumonia, PE, COPD, DKA, ARF, appy, cholecystitis, CVA, Diverticulitis, Homicidal, Suicidal, threat to staff... and all critical care pts) @ -No Diagnosis/symptom? @ -Right hip strain Acute, or Chronic, or Acute on Chronic? @ -Acute on chronic Uncomplicated (without systemic symptoms) or Complicated (systemic symptoms)? @ -Uncomplicated Side effects of treatment? @ -none Exacerbation, Progression, or Severe Exacerbation] @ -no Poses a threat to life or bodily function? @ -no (Javed Champagne) Disposition <Jacki Pang - Last Filed: 01/26/23 14:18> Is patient prescribed a controlled substance at d/c from ED?: No Time of Disposition: 21:20 <Javed Champagne - Last Filed: 01/26/23 21:39> Clinical Impression: Chest wall pain, Injury of sternum, Strain of right hip Disposition: HOME SELF-CARE Condition: Good Additional Instructions: follow up with Dr. Farr for abdnormal chest wall findings on CT imaging. Return if any concerns. Referrals: Vinny Matthews MD [Primary Care Provider] - 1-2 days
[2023-01-26 15:03] LABS: Basophils # (A) 0.1 k/uL (0-0.2); Basophils % (A) 1 %; Eosinophils # (A) 0.1 k/uL (0-0.7); Eosinophils % (A) 1 %; HCT 41.6 % (39.0-53.0); Lymphocytes # (A) 2.7 k/uL (1.0-4.8); Lymphocytes % (A) 32 %; MCH 30.2 pg (25.0-35.0); MCHC 33.7 g/dL (31.0-37.0); MCV 89.5 fL (80.0-100.0); Mean Platelet Volume 9.1; Monocytes # (A) 0.5 k/uL (0-1.0); Monocytes % (A) 6 %; Neutrophils % (A) 58 %; Platelet Count 196 k/uL (150-450); RBC 4.65 m/uL (4.30-5.90); RDW 13.6 % (11.5-15.5); WBC 8.6 k/uL (3.8-10.6)
[2023-01-26 15:08] LABS: Partial Thromboplastin Time 22.7 sec (22.0-30.0); Prothrombin Time 10.9 sec (10.0-12.5)
[2023-01-26 15:17] LABS: ALT 45 U/L (4-49); AST 50 U/L (17-59); African American GFR (CKD) 63 (>60 ml/min/1.73 sqM); Albumin 4.1 g/dL (3.5-5.0); Alkaline Phosphatase 66 U/L (38-126); Anion Gap 12 mmol/L; Blood Urea Nitrogen 23 mg/dL (9-20); Calcium 10.7 mg/dL (8.4-10.2); Carbon Dioxide 26 mmol/L (22-30); Chloride 101 mmol/L (98-107); Glucose 165 mg/dL (74-99); Magnesium 1.7 mg/dL (1.6-2.3); Non-African American GFR(CKD) 54 (>60 ml/min/1.73 sqM); Potassium 4.2 mmol/L (3.5-5.1); Sodium 139 mmol/L (137-145); Total Bilirubin 0.6 mg/dL (0.2-1.3); Total Protein 8.2 g/dL (6.3-8.2)
[2023-01-26 15:25] LABS: NT-Pro-B-Type Natriuretic Pept 400 pg/mL
--- NOTE | 2023-01-26 15:29 | XR ---
EXAMINATION TYPE: XR chest 2V DATE OF EXAM: 01/26/2023 COMPARISON: 03/09/2020 TECHNIQUE: PA and lateral views submitted. HISTORY: Chest pain FINDINGS: The lungs are clear and there is no pneumothorax, pleural effusion, or focal pneumonia. Heart size normal and no overt failure. Osseous structures demonstrate mild hypertrophic and degenerative change s of the spine. Hyperinflation suggests COPD. IMPRESSION: 1. No acute process.
[2023-01-26] MEDS ORDERED: KETOROLAC 15 MG/ML 1 ML VIAL IVP STA (19:09)
[2023-01-26] MEDS ORDERED: methylPREDNISolone SOD SUCCI 125 MG/2 ML VIAL IV STA (19:09)
[2023-01-26] MEDS ORDERED: SODIUM CHLORIDE 0.9% 1,000 ML IV STA (19:09)
[2023-01-26] MEDS ORDERED: FAMOTIDINE 20 MG/2 ML VIAL IV STA (19:09)
[2023-01-26] MEDS ORDERED: diphenhydrAMINE 50 MG/ML 1 ML VIAL IVP STA (19:09)
--- NOTE | 2023-01-26 19:44 | XR ---
EXAMINATION TYPE: XR Hip RT and AP Pelvis DATE OF EXAM: 01/26/2023 7:28 PM CLINICAL INDICATION:Male, 72 years old with history of pain; [facility] COMPARISON: None. TECHNIQUE: XR Hip RT and AP Pelvis; hip was examined in the frontal and lateral projections and a AP pelvis. FINDINGS: No evidence for acute process, joint dislocation or significant soft tissue swelling. Osteo phyte formation of the superior acetabulum of the hip. IMPRESSION: 1. No evidence for acute process. 2. Mild hip osteoarthrosis.
[2023-01-26 20:36] VITALS: RESP 18
--- NOTE | 2023-01-26 20:54 | CT ---
EXAMINATION TYPE: CT chest angio for PE CT DLP: 427.7 mGycm, Automated exposure control for dose reduction was used. DATE OF EXAM: 01/26/2023 8:30 PM COMPARISON: CT most recent 07/18/2022. CLINICAL INDICATION:Male, 72 years old with history of eval for PE; elevated d-dimer. r/o PE TECHNIQUE/CONTRAST: CTA scan of the thorax is performed with IV Contrast, patient injected with 66ml mL of Isovue 370, AL P images are created and reviewed these are created on a separate workstation.. FINDINGS: Pulmonary Artery: There is no evidence for a filling defect within the pulmonary vasculature to sugge st acute pulmonary embolism. The pulmonary artery is of normal size. Lungs/Pleura: No evidence of focal consolidation, pleural effusion or pneumothorax. Mild centrilobula r emphysema changes are seen throughout the lungs. Airway: Large airways are patent. Heart: The heart is mildly enlarged for size. There is atherosclerotic indications of the coronary ar teries moderate to severe. Vasculature: No evidence of aortic aneurysm. Atherosclerotic dislocations are present. Mediastinum: No gross evidence of adenopathy. Mural thrombus is seen along the aorta. Musculoskeletal: No acute osseous abnormalities Soft Tissues: Soft tissue density is seen in the sternum which extends through the intercostal margin s best appreciated on sagittal image 120 of series 403. There is osseous erosion/destruction of the s ternum in this area. Lower neck: No significant findings. Upper Abdomen: No significant findings. IMPRESSION: 1. No evidence of pulmonary embolism. 2. Soft tissue density is seen extending through the sternum and around the soft tissues and extends through the intercostal margins best appreciated on sagittal image 120 of series 403. Consider tissue sampling for definitive diagnosis. Correlate with history of trauma and/or malignancy. New from 07/18
[2023-01-26 21:44] VITALS: BP 178/88; PULSE 68; TEMP 98.5
== END 2023-01-26 21:43 | disposition home or self-care (01) ==
LOC: EC 13:40
DX: S76.011A Strain of muscle, fascia and tendon of right hip, initial encounter (principal); S29.9XXA Unspecified injury of thorax, initial encounter; R07.89 Other chest pain; E11.9 Type 2 diabetes mellitus without complications; I10 Essential (primary) hypertension; Z86.59 Personal history of other mental and behavioral disorders; Z87.891 Personal history of nicotine dependence; Z79.84 Long term (current) use of oral hypoglycemic drugs; Z79.82 Long term (current) use of aspirin; Z86.16 Personal history of COVID-19; Z91.041 Radiographic dye allergy status; Z88.8 Allergy status to other drugs, medicaments and biological substances; X58.XXXA Exposure to other specified factors, initial encounter
CPT/HCPCS: 36415; 93005; 85379; 83880; 80053; 83735; 84484; 85025; 85610; 85730; 73502; 71046; 71275; 99285; 96374; 96375 ×3; J1200; J2930; J3490; J1885; Q9967

== ENCOUNTER 2023-03-09 08:40 | Day surgery (SDC) | payer MEDICARE, OTHER ==
[2023-03-09 09:54] VITALS: TEMP 98
--- NOTE | 2023-03-09 11:07 | US ---
ULTRASOUND GUIDED FNA STERNAL MASS: CLINICAL HISTORY: Sternal lesion with soft tissue mass FINDINGS: Preliminary imaging demonstrated the soft tissue component of the sternal lesion is not seen on today 's exam. Underlying bony lesion likely present but not typically evaluated with ultrasound. IMPRESSION: 1. A soft tissue component of the sternal lesion seen by CT scan is not seen on today's exam.
[2023-03-09 11:17] VITALS: BP 148/84; PULSE 64; RESP 16
--- NOTE | 2023-03-09 11:17 | CT ---
EXAMINATION TYPE: CT biopsy subcut tissue DATE OF EXAM: 03/09/2023 COMPARISON: 01/26/2023 HISTORY: Sternal mass CT DLP: 1569 mGycm The procedure is discussed with the patient, the risks, complications, benefits and alternatives, wer e discussed and any questions were answered. Informed consent was obtained. The patient is placed s upine on the CT table, prepped and draped in the usual sterile fashion. Utilizing a 18-gauge core biopsy needle access into external mass was achieved with single sample obt ained. Pathology pending. All elements of maximal barrier and sterile technique were utilized. The patient remained stable throughout the procedure with no immediate postprocedural complication. IMPRESSION: 1. Successful CT guided core biopsy of a sternal mass. 2. Please see noted soft tissue component anterior to the sternal lesion has demonstrated near comple te resolution.
== END 2023-03-09 11:30 | disposition home or self-care (01) ==
LOC: RADPROMAIN 08:40
PROVIDERS: ATTEND Thoracic Surgery (Cardiothoracic Vascular Surgery)
DX: R22.2 Localized swelling, mass and lump, trunk (principal)
CPT/HCPCS: 76536; 77012; 88305

== ENCOUNTER → 2023-06-06 | Outpatient (CLI) | payer MEDICARE, OTHER ==
[2023-06-06 18:35] LABS: BUN/Creat Ratio 14.75 Ratio (12.00-20.00); Blood Urea Nitrogen 17.7 mg/dL (9.0-27.0); Calcium 9.7 mg/dL (8.7-10.3); Carbon Dioxide 25.2 mmol/L (21.6-31.8); Chloride 106 mmol/L (96-109); Glucose 95 mg/dL (70-110); Potassium 4.8 mmol/L (3.5-5.5); Sodium 141 mmol/L (135-145)
== END | disposition home or self-care (01) ==
LOC: LABWHC1 14:38
PROVIDERS: ATTEND Internal Medicine
DX: E87.5 Hyperkalemia (principal)
CPT/HCPCS: 36415; 80048; 83735

== ENCOUNTER 2023-06-14 11:17 | Inpatient (IN) | payer MEDICARE, OTHER ==
[2023-06-14] MEDS: diphenhydrAMINE 50 MG/ML 1 ML VIAL IVP STA (12:08)
[2023-06-14] MEDS: FAMOTIDINE 20 MG/2 ML VIAL IV STA (12:10)
[2023-06-14] MEDS: methylPREDNISolone SOD SUCCI 125 MG/2 ML VIAL IV STA (12:11)
[2023-06-14 12:24] LABS: Basophils # (A) 0.1 k/uL (0-0.2); Basophils % (A) 1 %; Eosinophils # (A) 0.2 k/uL (0-0.7); Eosinophils % (A) 3 %; HCT 47.6 % (39.0-53.0); HGB 15.9 gm/dL (13.0-17.5); Lymphocytes % (A) 23 %; MCH 30.3 pg (25.0-35.0); MCHC 33.4 g/dL (31.0-37.0); MCV 90.7 fL (80.0-100.0); Mean Platelet Volume 9.5; Monocytes # (A) 0.5 k/uL (0-1.0); Monocytes % (A) 6 %; Neutrophils # (A) 5.5 k/uL (1.3-7.7); Neutrophils % (A) 64 %; Platelet Count 197 k/uL (150-450); RBC 5.25 m/uL (4.30-5.90); RDW 14.2 % (11.5-15.5); WBC 8.5 k/uL (3.8-10.6)
--- NOTE | 2023-06-14 12:31 | CT ---
EXAMINATION TYPE: CODE STROKE: CT brain wo contr DATE OF EXAM: 06/14/2023 COMPARISON: None HISTORY: 72-year-old male left arm weakness TECHNIQUE: Examination was done in axial plane without intravenous contrast. Coronal and sagittal r econstructions performed. CT DLP: 1141.7 mGycm Automated exposure control for dose reduction was used. FINDINGS: There is no evidence of acute intracranial hemorrhage, acute ischemic changes, mass, mass-effect, or extra-axial fluid collection. There is no effacement of cerebral sulci or basal subarachnoid cister ns. There is no hydrocephalus. There is no midline shift. Lewis-white matter distinction is preserv ed. Moderate patchy white matter hypodensities in both cerebral hemispheres. Old lacunar infarct right ba allegra ganglia. Some atherosclerotic calcifications noted within the bilateral carotid siphons. Paranasal sinuses and mastoid air cells well pneumatized. Orbits and globes are intact. IMPRESSION: No acute intracranial abnormality seen. Moderate patchy burden of chronic small vessel ischemic disea se.
[2023-06-14 12:32] LABS: Prothrombin Time 10.6 sec (10.0-12.5)
[2023-06-14 12:41] LABS: Glucose,Whole Blood 124 mg/dL (70-110)
[2023-06-14 12:46] LABS: ALT 52 U/L (4-49); AST 50 U/L (17-59); African American GFR (CKD) 86 (>60 ml/min/1.73 sqM); Albumin 4.9 g/dL (3.5-5.0); Alkaline Phosphatase 92 U/L (38-126); Anion Gap 10 mmol/L; Blood Urea Nitrogen 22 mg/dL (9-20); Calcium 9.7 mg/dL (8.4-10.2); Carbon Dioxide 24 mmol/L (22-30); Chloride 107 mmol/L (98-107); Creatine Kinase 58 U/L (55-170); Glucose 136 mg/dL (74-99); Non-African American GFR(CKD) 75 (>60 ml/min/1.73 sqM); Potassium 4.4 mmol/L (3.5-5.1); Sodium 141 mmol/L (137-145); Total Bilirubin 0.8 mg/dL (0.2-1.3); Total Protein 8.2 g/dL (6.3-8.2)
--- NOTE | 2023-06-14 14:34 | CT ---
EXAMINATION TYPE: CT angio head neck DATE OF EXAM: 06/14/2023 COMPARISON: CT brain same day HISTORY: 72-year-old male left side weakness. TECHNIQUE: Contiguous axial scanning of the abdomen neck performed with IV Contrast, patient injected with 65ml mL of Isovue 300. Coronal and sagittal reconstructions performed. 3-D reconstructions gene rated on a dedicated independent workstation. CT DLP: 551.7 mGycm Automated exposure control for dose reduction was used. FINDINGS: Neck: Moderate emphysematous change in the visualized upper lungs. Mild to moderate atherosclerotic plaque within the aortic arch. The left vertebral artery is slightly more dominant. Both vertebral arteries are patent. The right common carotid artery is patent. There is circumferential noncalcified plaque at the right carotid bulb contributing to severe, just o fani 70% stenosis proximal right ICA. The remainder of the right ICA is patent. Mild atherosclerotic narrowing at the origin of the left common carotid artery. The left common carotid artery is otherwise patent. There is mild, 40% stenosis proximal left ICA secondary to mixed plaque. Remainder of the left ICA is patent. NASCET criteria was utilized. Head: Left vertebral artery is dominant. V4 segment right vertebral artery becomes even more hypoplastic af ter the PICA takeoff. The basilar artery and remainder of the posterior circulation is patent. Dural venous sinuses are patent. Vascular calcification in the carotid siphons with segmental mild to moderate stenoses. Remainder of the anterior circulation is patent. No aneurysmal change is seen. IMPRESSION: NECK: 1. SEVERE, JUST OVER 70% PROXIMAL RIGHT ICA STENOSIS. 2. MILD, 40% PROXIMAL LEFT ICA STENOSIS. 3. SLIGHTLY MORE DOMINANT LEFT VERTEBRAL ARTERY. 4. COPD IN THE VISUALIZED UPPER LUNGS. HEAD: 5. MILD TO MODERATE SEGMENTAL STENOSES IN THE BILATERAL CAROTID SIPHONS FROM ATHEROSCLEROTIC CHANGE. 6. NO LARGE VESSEL INTRACRANIAL ARTERIAL OCCLUSION, SIGNIFICANT STENOSIS, OR ANEURYSMAL CHANGE IS SEE N.
--- NOTE | 2023-06-14 14:40 | ED ---
General Adult HPI - General Chief complaint: Extremity Problem,Nontraumatic Stated complaint: Numbness in L Arm Time Seen by Provider: 06/14/23 11:30 Source: patient Mode of arrival: EMS Limitations: no limitations - History of Present Illness Initial comments: 72-year-old male with past medical history of CVA, carotid disease, TIA who presents emergency department reporting left arm weakness. He went to bed around 4 AM. He states that he woke up at 6 AM and felt fine. Around 9 AM when he woke up he had complete weakness in his left upper extremity. He is left- hand dominant. He denies any pain. No injuries. He thought that his weakness would slowly get better and it has a bit, but has not resolved. He does have a history of previous CVA and TIA. Patient had an endarterectomy in 2015. He is allergic to Plavix and multiple cholesterol medications. Patient denies any weakness in his lower extremity. Denies any facial droop or speech difficulties. No other alleviating, precipitating or modifying factors - Related Data Home Medications Medication Instructions Recorded Confirmed Acetaminophen Tab [Tylenol] 1,000 mg PO Q6H PRN 02/28/20 06/14/23 Aspirin EC [Ecotrin] 325 mg PO HS 02/28/20 06/14/23 metFORMIN HCL [Glucophage] 500 mg PO PC-BID 10/25/21 06/14/23 Cholecalciferol [Vitamin D3 (25 25 mcg PO BID 06/14/23 06/14/23 Mcg = 1000 Iu)] Dorzolamide-Timol 2.23%/0.68% 1 drop LEFT EYE BID 06/14/23 06/14/23 [Cosopt] atenoloL [Tenormin] 50 mg PO HS 06/14/23 06/14/23 icosapent ethyL [Icosapent Ethyl] 1 gm PO PC-BID 06/14/23 06/14/23 Allergies Allergy/AdvReac Type Severity Reaction Status Date / Time clopidogrel [From Plavix] Allergy Unknown Rash/Hives, Verified 06/14/23 13:02 itching ezetimibe [From Zetia] Allergy Unknown headaches, Verified 06/14/23 13:02 eye pain, lower extremity tingling omeprazole Allergy Unknown Itching Verified 06/14/23 13:02 iodine Allergy Itching Verified 06/14/23 13:02 Iodine and Iodide Containing Allergy Itching Verified 06/14/23 13:02 Produc Gnvarxj-HXO-XfX Reductase Allergy Anaphylaxis Verified 06/14/23 13:02 Inhibitor [Zgtnibp-Ejf-Wuu Reductase Inhibitor] Review of Systems ROS Statement: Those systems with pertinent positive or pertinent negative responses have been documented in the HPI. ROS Other: All systems not noted in ROS Statement are negative. Past Medical History Past Medical History: CVA/TIA, Diabetes Mellitus, GERD/Reflux, Hyperlipidemia, Hypertension, Osteoarthritis (OA) Additional Past Medical History / Comment(s): TIA (2015)., Hospitalized for Covid 2019. 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 Past Anesthesia/Blood Transfusion Reactions: No Reported Reaction Past Psychological History: No Psychological Hx Reported Smoking Status: Former smoker Past Alcohol Use History: None Reported Past Drug Use History: None Reported - Past Family History Mother Family Medical History: Cancer Brother(s) Family Medical History: Cancer General Exam Limitations: no limitations General appearance: alert, in no apparent distress Head exam: Present: atraumatic, normocephalic, normal inspection Eye exam: Present: normal appearance, PERRL, EOMI. Absent: scleral icterus, conjunctival injection, periorbital swelling ENT exam: Present: normal exam, mucous membranes moist Neck exam: Present: normal inspection. Absent: tenderness, meningismus, lymphadenopathy Respiratory exam: Present: normal lung sounds bilaterally. Absent: respiratory distress, wheezes, rales, rhonchi, stridor Cardiovascular Exam: Present: regular rate, normal rhythm, normal heart sounds. Absent: systolic murmur, diastolic murmur, rubs, gallop, clicks GI/Abdominal exam: Present: soft, normal bowel sounds. Absent: distended, tenderness, guarding, rebound, rigid Extremities exam: Present: normal capillary refill, other (Patient has 4 out of 5 strength in the left upper extremity. He does have some ataxia in this extremity as well. 5 out of 5 strength in the right arm and bilateral legs). Absent: tenderness, pedal edema, joint swelling, calf tenderness Back exam: Present: normal inspection Neurological exam: Present: alert, oriented X3, CN II-XII intact Psychiatric exam: Present: normal affect, normal mood Skin exam: Present: warm, dry, intact, normal color. Absent: rash Course Vital Signs 06/14/23 06/14/23 06/14/23 11:23 13:19 13:24 Temperature 98.0 F Pulse Rate 60 68 58 L Respiratory 18 18 Rate Blood Pressure 181/89 189/88 165/81 O2 Sat by Pulse 96 95 Oximetry 06/14/23 15:08 Temperature 98.1 F Pulse Rate 71 Respiratory 16 Rate Blood Pressure 142/78 O2 Sat by Pulse 96 Oximetry Medical Decision Making - Medical Decision Making Was pt. sent in by a medical professional or institution (, PA, [employer], urgent care, hospital, or retirement...) When possible be specific @ -No Did you speak to anyone other than the patient for history (EMS, parent, family, police, friend...)? What history was obtained from this source @ -No Did you review nursing and triage notes (agree or disagree)? Why? @ -I reviewed and agree with nursing and triage notes Were old charts reviewed (outside hosp., previous admission, EMS record, old EKG, old radiological studies, urgent care reports/EKG's, retirement records)? Report findings @ -I reviewed patient's carotid Doppler study from July 2022 Differential Diagnosis (chest pain, altered mental status, abdominal pain women, abdominal pain men, vaginal bleeding, weakness, fever, dyspnea, syncope, headache, dizziness, GI bleed, back pain, seizure, CVA, palpatations, mental health, musculoskeletal)? @ -Differential CVA Ischemic stroke, hemorrhagic stroke, brain tumor, atypical migraine, Wernicke's encephalopathy, seizure, multiple sclerosis, meningitis, encephalitis, hypoglycemia, Guillain-Walls, electrolytes disturbance, myasthenia gravis.... This is not meant to be an all-inclusive list EKG interpreted by me (3pts min.). @ -Yes and demonstrates sinus rhythm with a rate of 67. [place] interval 227. QRS 82. QTc of 428. No acute ST segment elevations or depressions X-rays interpreted by me (1pt min.). @ -Yes and demonstrates no acute process CT interpreted by me (1pt min.). @ -Yes and demonstrates greater than 70% right ICA stenosis U/S interpreted by me (1pt. min.). @ -None done What testing was considered but not performed or refused? (CT, X-rays, U/S, labs)? Why? @ -None What meds were considered but not given or refused? Why? @ -Statin was considered however patient states he is allergic to cholesterol medications Did you discuss the management of the patient with other professionals (professionals i.e. Dr., PA, [employer], lab, RT, psych nurse, social media campaign manager, animal services officer, teacher, contracting officer, case managers)? Give summary @ -Spoke with Dr. Shelley in regards to the admission. Spoke with Dr. Bo as patient is code stroke Was smoking cessation discussed for >3mins.? @ -No Was critical care preformed (if so, how long)? @ -Yes, 35 minutes for activation of code stroke Were there social determinants of health that impacted care today? How? (Homelessness, low income, unemployed, alcoholism, drug addiction, transportation, low edu. Level, literacy, decrease access to med. care, usp, rehab)? @ -No Was there de-escalation of care discussed even if they declined (Discuss DNR or withdrawal of care, Hospice)? DNR status @ -No What co-morbidities impacted this encounter? (DM, HTN, Smoking, COPD, CAD, Cancer, CVA, ARF, Chemo, Hep., AIDS, mental health diagnosis, sleep apnea, m orbid obesity)? @ -History of CVA Was patient admitted / discharged? Hospital course, mention meds given and route, prescriptions, significant lab abnormalities, going to OR and other pertinent info. @ -Upon arrival patient was placed into room 29. Thorough history and physical exam was performed. Patient has weakness and ataxia in the left upper extremity. Last known well was at 6 AM. Code stroke was activated. Spoke with Dr. Bo. Patient is moved into room 10. He is taken for CT as well as CT angiography of his brain. Laboratory studies are conducted. Results do return and the patient has no large vessel occlusion. He is not a candidate for tenecteplase as he is outside of the window. Patient was given an aspirin. I cannot give him a statin medication as he is allergic to them. I recommended admission for neurology consultation. Patient continues to have an NIH of 3 throughout his stay. Patient was agreeable to admission. Spoke with Dr. Shelley was agreeable to the admission. Psychiatry will be placed on consult Undiagnosed new problem with uncertain prognosis? @ -yes Drug Therapy requiring intensive monitoring for toxicity (Heparin, Nitro, Insulin, Cardizem)? @ -No Were any procedures done? @ -No Diagnosis/symptom? @ -Acute left upper extremity weakness, suspected CVA, right ICA stenosis Acute, or Chronic, or Acute on Chronic? @ -Acute Uncomplicated (without systemic symptoms) or Complicated (systemic symptoms)? @ -Complicated Side effects of treatment? @ -No Exacerbation, Progression, or Severe Exacerbation? @ -No Poses a threat to life or bodily function? How? (Chest pain, [place], [place], pneumonia, PE, COPD, DKA, ARF, appy, cholecystitis, CVA, Diverticulitis, Homicidal, Suicidal, threat to staff... and all critical care pts) @ -Yes there is high concern that the patient had a stroke - Lab Data Result diagrams: 06/14/23 12:14 06/14/23 12:14 Lab Results 06/14/23 06/14/23 06/14/23 Range/Units 12:14 12:14 12:14 WBC 8.5 (3.8-10.6) k/uL RBC 5.25 (4.30-5.90) m/uL Hgb 15.9 (13.0-17.5) gm/dL Hct 47.6 (39.0-53.0) % MCV 90.7 (80.0-100.0) fL MCH 30.3 (25.0-35.0) pg MCHC 33.4 (31.0-37.0) g/dL RDW 14.2 (11.5-15.5) % Plt Count 197 (150-450) k/uL MPV 9.5 Neutrophils % 64 % Lymphocytes % 23 % Monocytes % 6 % Eosinophils % 3 % Basophils % 1 % Neutrophils # 5.5 (1.3-7.7) k/uL Lymphocytes # 2.0 (1.0-4.8) k/uL Monocytes # 0.5 (0-1.0) k/uL Eosinophils # 0.2 (0-0.7) k/uL Basophils # 0.1 (0-0.2) k/uL PT 10.6 (10.0-12.5) sec INR 1.0 (<1.2) APTT 23.0 (22.0-30.0) sec Sodium 141 (137-145) mmol/L Potassium 4.4 (3.5-5.1) mmol/L Chloride 107 (98-107) mmol/L Carbon Dioxide 24 (22-30) mmol/L Anion Gap 10 mmol/L BUN 22 H (9-20) mg/dL Creatinine 1.01 (0.66-1.25) mg/dL Est GFR (CKD-EPI)AfAm 86 (>60 ml/min/1.73 sqM) Est GFR (CKD-EPI)NonAf 75 (>60 ml/min/1.73 sqM) Glucose 136 H (74-99) mg/dL POC Glucose (mg/dL) (70-110) mg/dL POC Glu Sanitation Worker ID Calcium 9.7 (8.4-10.2) mg/dL Total Bilirubin 0.8 (0.2-1.3) mg/dL AST 50 (17-59) U/L ALT 52 H (4-49) U/L Alkaline Phosphatase 92 (38-126) U/L Creatine Kinase 58 (55-170) U/L Troponin I (0.000-0.034) ng/mL Total Protein 8.2 (6.3-8.2) g/dL Albumin 4.9 (3.5-5.0) g/dL 06/14/23 06/14/23 Range/Units 12:14 12:39 WBC (3.8-10.6) k/uL RBC (4.30-5.90) m/uL Hgb (13.0-17.5) gm/dL Hct (39.0-53.0) % MCV (80.0-100.0) fL MCH (25.0-35.0) pg MCHC (31.0-37.0) g/dL RDW (11.5-15.5) % Plt Count (150-450) k/uL MPV Neutrophils % % Lymphocytes % % Monocytes % % Eosinophils % % Basophils % % Neutrophils # (1.3-7.7) k/uL Lymphocytes # (1.0-4.8) k/uL Monocytes # (0-1.0) k/uL Eosinophils # (0-0.7) k/uL Basophils # (0-0.2) k/uL PT (10.0-12.5) sec INR (<1.2) APTT (22.0-30.0) sec Sodium (137-145) mmol/L Potassium (3.5-5.1) mmol/L Chloride (98-107) mmol/L Carbon Dioxide (22-30) mmol/L Anion Gap mmol/L BUN (9-20) mg/dL Creatinine (0.66-1.25) mg/dL Est GFR (CKD-EPI)AfAm (>60 ml/min/1.73 sqM) Est GFR (CKD-EPI)NonAf (>60 ml/min/1.73 sqM) Glucose (74-99) mg/dL POC Glucose (mg/dL) 124 H (70-110) mg/dL POC Glu Sanitation Worker ID Janneth Dean Calcium (8.4-10.2) mg/dL Total Bilirubin (0.2-1.3) mg/dL AST (17-59) U/L ALT (4-49) U/L Alkaline Phosphatase (38-126) U/L Creatine Kinase (55-170) U/L Troponin I <0.012 (0.000-0.034) ng/mL Total Protein (6.3-8.2) g/dL Albumin (3.5-5.0) g/dL Disposition Clinical Impression: CVA (cerebral vascular accident), Carotid stenosis, right Disposition: ADMITTED IP TO THIS [facility] Condition: Stable Is patient prescribed a controlled substance at d/c from ED?: No Time of Disposition: 14:40 Decision to Admit Reason: Admit from EC Decision Date: 06/14/23 Decision Time: 14:40
[2023-06-14] MEDS: ASPIRIN 325 MG TAB PO STA (15:07)
--- NOTE | 2023-06-14 15:10 | XR ---
EXAMINATION TYPE: XR chest 2V DATE OF EXAM: 06/14/2023 COMPARISON: NONE HISTORY: Altered mental status. TECHNIQUE: Frontal and lateral views of the chest are obtained. FINDINGS: There is no focal air space opacity, pleural effusion, or pneumothorax seen. The cardiac silhouette size is within normal limits. The osseous structures are intact. IMPRESSION: No acute cardiopulmonary process.
[2023-06-14] MEDS ORDERED: ACETAMINOPHEN TAB 500 MG TAB PO PRN (16:03)
--- NOTE | 2023-06-14 16:20 | P.HPIM ---
History of Present Illness H&P Date: 06/14/23 Chief Complaint: Left-sided weakness 72-year-old man with a medical history of carotid stenosis, CVA/TIA, peripheral arterial disease, diabetes/hypertension/hyperlipidemia, glaucoma presented for evaluation of left upper extremity weakness. Patient says that he went to bed feeling in his usual state of health and woke up this morning at 6 in the morning without any symptoms. Then he went back to sleep and woke up again at 9 in the morning upon which she noticed that he had left upper extremity weakness. Patient says that this has happened to him before and felt like after 20 to 30 minutes he would regain full strength of his left upper extremity, however, he noted that there was no improvement after more than an hour therefore he presented to the hospital for further evaluation. Patient has previously had a carotid endarterectomy of his right side for stenosis and follows with vascular surgery for this. At home he takes aspirin 325 mg daily. Patient denies fevers, chills, nausea, vomiting, chest pain, palpitations, syncope, presyncope. Patient denies numbness/weakness of extremities. In the emergency room, patient was afebrile, 142/78, heart rate 71, 96% on room air. CBC was unremarkable. Basic metabolic panel showed mild prerenal azotemia. Liver function test showed mildly elevated ALT, AST. Troponin was less than 0.012. Coags were unremarkable. EKG demonstrated normal sinus rhythm with normal axis, prolonged VA interval consistent with first-degree AV block. Brain CT showed no acute intracranial abnormality, moderate patchy burden of chronic small vessel ischemic disease. Chest x-ray showed normal-sized heart, clear parenchyma bilaterally. CT angiography demonstrated severe just over 70% proximal right ICA stenosis with mild 40% proximal left ICA stenosis, incidental finding of COPD in the visualized upper lungs. All Systems reviewed and pertinent positives and negatives noted in HPI, all other symptoms are negative Gen: In NAD, non-toxic HEENT: normocephalic, atraumatic, hearing acuity is intant, mucous membranes moist CVS: perfusing all extremities well, no pitting edema, no appreciable murmurs Respiratory: symmetric chest expansion, no accessory muscle use, lung sounds were overall quiet, air movement was diminished, no wheezing GI: soft, NTTP, ND, : no suprapubic tenderness, no CVA tenderness MSK/Derm: no rashes, cyanosis Neuro: CN II-XII intact, no motor weakness, no sensory loss to light touch Psych: cooperative, euthymic mood, judgment and insight is intact Labs and imaging as above Assessment/plan: Left upper extremity weakness Suspected TIA versus CVA, with previous history Ipsilateral carotid stenosis Peripheral arterial disease -Admit patient as an observation with telemetry -Consult neurology -MRI of the brain without contrast was ordered -Vascular surgery consult -PT/OT -Aspirin 325 mg daily -Pt is allergic to Plavix and statin, ezetimibe, consideration of initiation of PSCK-9 inhibitor outpatient -Echo ordered -A1c, lipid panel, TSH Diabetes type 2 Hypertension Hyperlipidemia Glaucoma -Home medications reviewed and reconciled Patient is full code Past Medical History Past Medical History: CVA/TIA, Diabetes Mellitus, GERD/Reflux, Hyperlipidemia, Hypertension, Osteoarthritis (OA) Additional Past Medical History / Comment(s): TIA (2015)., Hospitalized for Covid 2019. 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 Past Anesthesia/Blood Transfusion Reactions: No Reported Reaction Past Psychological History: No Psychological Hx Reported Smoking Status: Former smoker Past Alcohol Use History: None Reported Past Drug Use History: None Reported - Past Family History Mother Family Medical History: Cancer Brother(s) Family Medical History: Cancer Medications and Allergies Home Medications Medication Instructions Recorded Confirmed Type Acetaminophen Tab [Tylenol] 1,000 mg PO Q6H PRN 02/28/20 06/14/23 History Aspirin EC [Ecotrin] 325 mg PO HS 02/28/20 06/14/23 History metFORMIN HCL [Glucophage] 500 mg PO PC-BID 10/25/21 06/14/23 History Cholecalciferol [Vitamin D3 (25 25 mcg PO BID 06/14/23 06/14/23 History Mcg = 1000 Iu)] Dorzolamide-Timol 2.23%/0.68% 1 drop LEFT EYE BID 06/14/23 06/14/23 History [Cosopt] atenoloL [Tenormin] 50 mg PO HS 06/14/23 06/14/23 History icosapent ethyL [Icosapent Ethyl] 1 gm PO PC-BID 06/14/23 06/14/23 History Allergies Allergy/AdvReac Type Severity Reaction Status Date / Time clopidogrel [From Plavix] Allergy Unknown Rash/Hives, Verified 06/14/23 13:02 itching ezetimibe [From Zetia] Allergy Unknown headaches, Verified 06/14/23 13:02 eye pain, lower extremity tingling omeprazole Allergy Unknown Itching Verified 06/14/23 13:02 iodine Allergy Itching Verified 06/14/23 13:02 Iodine and Iodide Containing Allergy Itching Verified 06/14/23 13:02 Produc Ydpsxfn-MKQ-GgU Reductase Allergy Anaphylaxis Verified 06/14/23 13:02 Inhibitor [Lpdnahg-Fmx-Zmc Reductase Inhibitor] Physical Exam Osteopathic Statement: *. No significant issues noted on an osteopathic st ructural exam other than those noted in the History and Physical/Consult. Vitals: Vital Signs Temp Pulse Resp BP Pulse Ox 06/14/23 15:08 98.1 F 71 16 142/78 96 06/14/23 13:24 58 L 165/81 06/14/23 13:19 68 18 189/88 95 06/14/23 11:23 98.0 F 60 18 181/89 96 Intake and Output 06/14/23 06/14/23 06/14/23 06:59 14:59 22:59 Other: Weight 89.358 kg Results CBC & Chem 7: 06/14/23 12:14 06/14/23 12:14 Labs: Abnormal Lab Results - Last 24 Hours (Table) 06/14/23 06/14/23 Range/Units 12:14 12:39 BUN 22 H (9-20) mg/dL Glucose 136 H (74-99) mg/dL POC Glucose (mg/dL) 124 H (70-110) mg/dL ALT 52 H (4-49) U/L
[2023-06-14 17:11] LABS: Glucose,Whole Blood 232 mg/dL (70-110)
[2023-06-14] MEDS: INSULIN ASPART (NovoLOG) 100 UNIT/ML VIAL SQ SCH (17:13)
[2023-06-14] MEDS ORDERED: metFORMIN 500 MG TAB PO SCH (18:30)
[2023-06-14] MEDS: [UNRECOGNIZED DRUG - REMARK] PO SCH (18:46)
[2023-06-14] MEDS: DORZOLAMIDE-TIMOLOL 2.23%/0.68 10ML BTL LEFT EYE SCH (20:15)
[2023-06-14] MEDS: CHOLECALCIFEROL 25 MCG (1000 IU) TABLET PO SCH (20:22)
[2023-06-14] MEDS: atenoloL 50 MG TAB PO SCH (20:22)
[2023-06-14 21:31] VITALS: RESP 18
[2023-06-15 06:31] LABS: Glucose,Whole Blood 146 mg/dL (70-110)
[2023-06-15 09:42] LABS: Basophils % (A) 0 %; Eosinophils # (A) 0.1 k/uL (0-0.7); Eosinophils % (A) 0 %; HCT 44.6 % (39.0-53.0); Lymphocytes # (A) 3.3 k/uL (1.0-4.8); Lymphocytes % (A) 15 %; MCH 30.2 pg (25.0-35.0); MCHC 33.5 g/dL (31.0-37.0); MCV 90.3 fL (80.0-100.0); Mean Platelet Volume 9.6; Monocytes # (A) 1.3 k/uL (0-1.0); Monocytes % (A) 6 %; Neutrophils % (A) 77 %; Platelet Count 235 k/uL (150-450); RBC 4.95 m/uL (4.30-5.90); RDW 14.2 % (11.5-15.5); WBC 22.2 k/uL (3.8-10.6)
[2023-06-15 09:51] LABS: ALT 43 U/L (4-49); AST 37 U/L (17-59); African American GFR (CKD) 82 (>60 ml/min/1.73 sqM); Albumin 4.6 g/dL (3.5-5.0); Alkaline Phosphatase 85 U/L (38-126); Anion Gap 12 mmol/L; Bilirubin, Delta 0.3 mg/dL (0.0-0.2); Bilirubin,Unconjugated 0.3 mg/dL (0.0-1.1); Blood Urea Nitrogen 23 mg/dL (9-20); Calcium 10.1 mg/dL (8.4-10.2); Carbon Dioxide 21 mmol/L (22-30); Chloride 107 mmol/L (98-107); Glucose 150 mg/dL (74-99); Magnesium 1.9 mg/dL (1.6-2.3); Non-African American GFR(CKD) 71 (>60 ml/min/1.73 sqM); Potassium 4.8 mmol/L (3.5-5.1); Sodium 140 mmol/L (137-145); Total Bilirubin 0.6 mg/dL (0.2-1.3); Total Protein 7.6 g/dL (6.3-8.2)
[2023-06-15] MEDS ORDERED: LORazepam 2 MG/ML INJ IV PRN (10:54)
--- NOTE | 2023-06-15 11:07 | US ---
EXAMINATION TYPE: US carotid duplex BILAT DATE OF EXAM: 06/15/2023 COMPARISON: NONE CLINICAL INDICATION: Male, 72 years old with history of TIA; TIa TECHNIQUE: Carotid duplex ultrasound examination. Indirect Doppler criteria was utilized. FINDINGS: EXAM MEASUREMENTS: RIGHT: Peak Systolic Velocity (PSV) cm/sec ----- Right CCA: 53.6 ----- Right ICA: 194.8 ----- Right ECA: 194.8 ICA/CCA ratio: 3.6 RIGHT: End Diastole cm/sec ----- Right CCA: 17.3 ----- Right ICA: 49.9 ----- Right ECA: 24.8 LEFT: Peak Systolic Velocity (PSV) cm/sec ----- Left CCA: 98.4 ----- Left ICA: 186.5 ----- Left ECA: 144.7 ICA/CCA ratio: 1.9 LEFT: End Diastole cm/sec ----- Left CCA: 20.8 ----- Left ICA: 47.1 ----- Left ECA: 22 VERTEBRALS (direction of flow): Right Vertebral: Antegrade Left Vertebral: Antegrade Rhythm: Normal [employer] NOTES: Significant plaque is seen within the internal carotid artery on the right side. T here is also plaque seen throughout the carotid bulb. Some mild plaque is seen within the external ca rotid artery on the right side. Moderate plaque is seen within the internal carotid artery and caroti d bulb on the left side. There is some plaque also seen within the vertebral artery. Elevated velocit ies right ICA and ECA. IMPRESSION: 1. Elevated velocities in the internal carotid arteries bilaterally as well as visible plaque which i s suggestive of a stenosis between 50 and 69%. 2. Elevated velocities also seen within the external carotid arteries bilaterally. Criteria for Assigning % of Stenosis / Diameter reduction (Estimation based on the indirect measurements of the internal carotid artery velocities (ICA PSV). 1. Normal (no stenosis)=ICA PSV < 125 cm/s: ratio < 2.0: ICA EDV<40 cm/s. 2. Less than 50% stenosis=ICA PSV < 125 cm/s: ratio < 2.0: ICA EDV<40 cm/s. 3. 50 to 69% stenosis=ICA PSV of 125 to 230 cm/s: ration 2.0 ? 4.0: ICA EDV 40-100 cm/s. 4. Greater than 70% stenosis to near occlusion= ICA PSV > 230 cm/s: ratio > 4.0: ICA EDV > 100 cm/s. 5. Near occlusion= ICA PSV velocities may be low or undetectable: variable ratio and ICA EDV. 6. Total occlusion=unable to detect flow.
[2023-06-15 11:12] VITALS: TEMP 97.5
[2023-06-15 11:15] LABS: Glucose,Whole Blood 174 mg/dL (70-110)
[2023-06-15 12:20] VITALS: BP 176/91; PULSE 65
--- NOTE | 2023-06-15 12:31 | P.GSCN ---
History of Present Illness Consult date: 06/15/23 Reason for Consult: Ipsilateral carotid stenosis Requesting physician: Paolo Palacios History of present illness: This is a pleasant 72-year-old male who presented to the emergency department with concerns of left upper extremity weakness. He has a past medical history of right carotid stenosis status post carotid endarterectomy [place] [address] Hutchins. He follows with Dr. Deb Ledezma for carotid surveillance and lower extremity peripheral arterial disease. He states that on Sunday he went to lift his arm to his head however he did not have any control of it. He had weakness of the entire left upper extremity, difficulty grasping things. He states this did not last long however he feels that there may some lingering tingling in his fingers. He states that he has problems often where he is unable to sleep on his back and he sleeps on his side, he often wakes up in the morning where he feels that he does have some numbness and tingling down his arm. He was worked up for acute stroke had a CT of the brain with no acute findings. Had a CT angiogram of the head and neck which reported severe just over 70% proximal right ICA stenosis. Mild 40% proximal left ICA stenosis. Vascular surgery was consulted for carotid stenosis. Patient currently denies any upper or lower extremity weakness, no other focal deficits. Denies shortness of breath, chest pain, abdominal pain, nausea or vomiting. He does not take Plavix or a statin due to allergies. He is on 81 mg aspirin daily. Review of Systems A 14 point review systems was completed all pertinent positives and negatives as stated in the HPI. Past Medical History Past Medical History: CVA/TIA, Diabetes Mellitus, GERD/Reflux, Hyperlipidemia, Hypertension, Osteoarthritis (OA) Additional Past Medical History / Comment(s): TIA (2015)., Hospitalized for Covid 2019. 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 sternal biopsy 03/01 Past Anesthesia/Blood Transfusion Reactions: No Reported Reaction Past Psychological History: No Psychological Hx Reported Additional Psychological History / Comment(s): anxiety prior to procedures Smoking Status: Former smoker Past Alcohol Use History: None Reported Additional Past Alcohol Use History / Comment(s): quit 2016, hx of 4 ppd. Past Drug Use History: None Reported - Past Family History Mother Family Medical History: Cancer Additional Family Medical History / Comment(s): colon CA Brother(s) Family Medical History: Cancer Medications and Allergies Home Medications Medication Instructions Recorded Confirmed Type Acetaminophen Tab [Tylenol] 1,000 mg PO Q6H PRN 02/28/20 06/14/23 History Aspirin EC [Ecotrin] 325 mg PO HS 02/28/20 06/14/23 History metFORMIN HCL [Glucophage] 500 mg PO PC-BID 10/25/21 06/14/23 History Cholecalciferol [Vitamin D3 (25 25 mcg PO BID 06/14/23 06/14/23 History Mcg = 1000 Iu)] Dorzolamide-Timol 2.23%/0.68% 1 drop LEFT EYE BID 06/14/23 06/14/23 History [Cosopt] atenoloL [Tenormin] 50 mg PO HS 06/14/23 06/14/23 History icosapent ethyL [Icosapent Ethyl] 1 gm PO PC-BID 06/14/23 06/14/23 History Allergies Allergy/AdvReac Type Severity Reaction Status Date / Time clopidogrel [From Plavix] Allergy Unknown Rash/Hives, Verified 06/14/23 13:02 itching ezetimibe [From Zetia] Allergy Unknown headaches, Verified 06/14/23 13:02 eye pain, lower extremity tingling omeprazole Allergy Unknown Itching Verified 06/14/23 13:02 iodine Allergy Itching Verified 06/14/23 13:02 Iodine and Iodide Containing Allergy Itching Verified 06/14/23 13:02 Produc Pgyaaot-YNK-NbI Reductase Allergy Anaphylaxis Verified 06/14/23 13:02 Inhibitor [Tkeaemm-Rvp-Lxo Reductase Inhibitor] Surgical - Exam Vital Signs Temp Pulse Resp BP Pulse Ox 98.0 F 60 18 181/89 96 06/14/23 11:23 06/14/23 11:23 06/14/23 11:23 06/14/23 11:23 06/14/23 11:23 General appearance: The patient is alert, oriented, appears in no acute distress. HET: Head is normocephalic and atraumatic. Pupils are equal and reactive. Neck: Supple. No bruit noted. Heart: Regular. Lungs: Equal expansion, normal respiratory effort. Abdomen: Soft, nontender, nondistended. Extremities: Normal skin color and turgor. Neurological: No focal deficits. Strength and sensation are grossly intact. Results - Labs 06/15/23 08:43 06/15/23 08:43 Abnormal Lab Results - Last 24 Hours (Table) 06/14/23 06/14/23 06/14/23 Range/Units 12:14 12:39 17:06 BUN 22 H (9-20) mg/dL Glucose 136 H (74-99) mg/dL POC Glucose (mg/dL) 124 H 232 H (70-110) mg/dL ALT 52 H (4-49) U/L 06/15/23 Range/Units 06:25 BUN (9-20) mg/dL Glucose (74-99) mg/dL POC Glucose (mg/dL) 146 H (70-110) mg/dL ALT (4-49) U/L Diabetes panel 06/14/23 Range/Units 12:14 Sodium 141 (137-145) mmol/L Potassium 4.4 (3.5-5.1) mmol/L Chloride 107 (98-107) mmol/L Carbon Dioxide 24 (22-30) mmol/L BUN 22 H (9-20) mg/dL Creatinine 1.01 (0.66-1.25) mg/dL Glucose 136 H (74-99) mg/dL Calcium 9.7 (8.4-10.2) mg/dL AST 50 (17-59) U/L ALT 52 H (4-49) U/L Alkaline Phosphatase 92 (38-126) U/L Total Protein 8.2 (6.3-8.2) g/dL Albumin 4.9 (3.5-5.0) g/dL Calcium panel 06/14/23 Range/Units 12:14 Calcium 9.7 (8.4-10.2) mg/dL Albumin 4.9 (3.5-5.0) g/dL Pituitary panel 06/14/23 Range/Units 12:14 Sodium 141 (137-145) mmol/L Potassium 4.4 (3.5-5.1) mmol/L Chloride 107 (98-107) mmol/L Carbon Dioxide 24 (22-30) mmol/L BUN 22 H (9-20) mg/dL Creatinine 1.01 (0.66-1.25) mg/dL Glucose 136 H (74-99) mg/dL Calcium 9.7 (8.4-10.2) mg/dL Adrenal panel 06/14/23 Range/Units 12:14 Sodium 141 (137-145) mmol/L Potassium 4.4 (3.5-5.1) mmol/L Chloride 107 (98-107) mmol/L Carbon Dioxide 24 (22-30) mmol/L BUN 22 H (9-20) mg/dL Creatinine 1.01 (0.66-1.25) mg/dL Glucose 136 H (74-99) mg/dL Calcium 9.7 (8.4-10.2) mg/dL Total Bilirubin 0.8 (0.2-1.3) mg/dL AST 50 (17-59) U/L ALT 52 H (4-49) U/L Alkaline Phosphatase 92 (38-126) U/L Total Protein 8.2 (6.3-8.2) g/dL Albumin 4.9 (3.5-5.0) g/dL - Imaging Comments: Carotid duplex: Elevated velocities in the internal carotid arteries bilaterally as well as visible plaque which is suggestive of a stenosis between 50 and 69%. Elevated velocities also seen within the external carotid arteries bilaterally CT angiogram head and neck. Neck: Severe just over 70% proximal right ICA stenosis. Mild 40% proximal left ICA stenosis. Slightly more dominant left vertebral artery. COPD in the visualized upper lungs. Head: Mild to moderate segmental stenosis in bilateral carotid siphons from arthrosclerotic change. No large vessel intracranial arterial occlusion, significant stenosis, or aneurysmal change seen. Brain CT reports no acute intracranial abnormality seen. Moderate patchy burden of chronic small vessel ischemic disease. Assessment and Plan Assessment: 1. Left-sided weakness numbness and tingling, now resolved 2. Carotid stenosis 3. Previous history of right ICA stenosis, status post endarterectomy in 2016 Plan: CT angiogram head and neck independently reviewed by Dr. Gan who disagrees with the 70% or greater stenosis of the right ICA. Carotid duplex also reviewed with findings of right ICA PSV 194 which is mildly elevated velocity. No hemodynamically severe stenosis warranting any acute intervention. Patient follows with Dr. Red recommend outpatient follow-up as scheduled. Consider possible imaging patient's neck and back, symptoms may be related to cervical issues. Otherwise continue aspirin, patient is allergic to antiplatelet and statins. He is cleared for discharge from vascular surgery. The impression and plan of care has been dictated as directed. Dr. Gan I performed a history and examination of this patient, discussed the same with the dictator. I agree with the dictator's note ,documented as a scribe. Any additional findings or plans will be noted.
--- NOTE | 2023-06-15 14:10 | P.DS ---
Providers Date of admission: 06/14/23 14:42 Expected date of discharge: 06/15/23 Attending physician: Becca Middleton, DO Consults: 06/14/23 14:41 Consult Physician Urgent Consulting Provider: Raza Campbell Consult Reason/Comments: left arm numbness, suspected cva Do you want consulting provider notified?: Yes 06/14/23 16:17 Consult Physician Routine Consulting Provider: Paris Vila Consult Reason/Comments: ipsilateral carotid stenosis Do you want consulting provider notified?: Yes Primary care physician: Vinny Matthews [facility] Course: Left upper extremity weakness Suspected TIA versus CVA, with previous history Ipsilateral carotid stenosis Peripheral arterial disease Diabetes type 2 Hypertension Hyperlipidemia Glaucoma Hospital Course: 72-year-old man with a medical history of carotid stenosis, CVA/TIA, peripheral arterial disease, diabetes/hypertension/hyperlipidemia, glaucoma presented for evaluation of left upper extremity weakness. In the emergency room, patient was afebrile, 142/78, heart rate 71, 96% on room air. CBC was unremarkable. Basic metabolic panel showed mild prerenal azotemia. Liver function test showed mildly elevated ALT, AST. Troponin was less than 0.012. Coags were unremarkable. EKG demonstrated normal sinus rhythm with normal axis, prolonged RI interval consistent with first-degree AV block. Brain CT showed no acute intracranial abnormality, moderate patchy burden of chronic small vessel ischemic disease. Chest x-ray showed normal-sized heart, clear parenchyma bilaterally. CT angiography demonstrated severe just over 70% proximal right ICA stenosis with mild 40% proximal left ICA stenosis, incidental finding of COPD in the visualized upper lungs. Seen and evaluated by vascular surgery who recommended outpatient f/u given complete resolution of LUE weakness. Pt should f/u with PCP. MRI was recommended, but patient did not want to attempt even with ativan - and requested that he be able to do it outpatient with an open MRI. This was delineated in his d/c instructions. Pt will f/u with PCP. I spent 32 minutes coordinating this discharge Gen: In NAD, non-toxic HEENT: normocephalic, atraumatic, hearing acuity is intant, mucous membranes moist CVS: perfusing all extremities well, no pitting edema, no appreciable murmurs Respiratory: symmetric chest expansion, no accessory muscle use, lung sounds were overall quiet, air movement was diminished, no wheezing GI: soft, NTTP, ND, : no suprapubic tenderness, no CVA tenderness MSK/Derm: no rashes, cyanosis Neuro: CN II-XII intact, no motor weakness, no sensory loss to light touch Psych: cooperative, euthymic mood, judgment and insight is intact Patient Condition at Discharge: Good Plan - Discharge Summary Discharge Rx Participant: Yes New Discharge Prescriptions: Continue Aspirin EC [Ecotrin] 325 mg PO HS Acetaminophen Tab [Tylenol] 1,000 mg PO Q6H PRN PRN Reason: Pain metFORMIN HCL [Glucophage] 500 mg PO PC-BID Cholecalciferol [Vitamin D3 (25 Mcg = 1000 Iu)] 25 mcg PO BID icosapent ethyL [Icosapent Ethyl] 1 gm PO PC-BID atenoloL [Tenormin] 50 mg PO HS Dorzolamide-Timol 2.23%/0.68% [Cosopt] 1 drop LEFT EYE BID Discharge Medication List Acetaminophen Tab [Tylenol] 1,000 mg PO Q6H PRN 02/28/20 [History] Aspirin EC [Ecotrin] 325 mg PO HS 02/28/20 [History] metFORMIN HCL [Glucophage] 500 mg PO PC-BID 10/25/21 [History] Cholecalciferol [Vitamin D3 (25 Mcg = 1000 Iu)] 25 mcg PO BID 06/14/23 [History] Dorzolamide-Timol 2.23%/0.68% [Cosopt] 1 drop LEFT EYE BID 06/14/23 [History] atenoloL [Tenormin] 50 mg PO HS 06/14/23 [History] icosapent ethyL [Icosapent Ethyl] 1 gm PO PC-BID 06/14/23 [History] Follow up Appointment(s)/Referral(s): Vinny Matthews DO [Primary Care Provider] - 1-2 days Activity/Diet/Wound Care/Special Instructions: You will need a referral from PCP for outpatient open MRI Discharge Disposition: HOME SELF-CARE
--- NOTE | 2023-06-15 17:00 | P.CNNES ---
History of Present Illness Consult date: 06/15/23 Requesting physician: Ilene Bui Reason for Consult: left arm numbness, suspected cva History of Present Illness: Patient is a 72-year-old male came to the hospital yesterday at 11:17 AM Vital signs on arrival blood pressure 181/89, pulse rate 60, temperature 98.0. CT head revealed no acute intracranial abnormality seen. Moderate patchy burden of chronic small vessel ischemic disease. Blood test shows WBC 22.2, hemoglobin 15.0, normal platelets. Basic metabolic panel, hepatic panel is normal. TSH normal. Patient currently takes aspirin 325 mg, metformin 5 mg twice daily, atenolol 50 mg. Past Medical History Past Medical History: CVA/TIA, Diabetes Mellitus, GERD/Reflux, Hyperlipidemia, Hypertension, Osteoarthritis (OA) Additional Past Medical History / Comment(s): TIA (2015)., Hospitalized for Covid 2019. 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 sternal biopsy 03/01 Past Anesthesia/Blood Transfusion Reactions: No Reported Reaction Past Psychological History: No Psychological Hx Reported Additional Psychological History / Comment(s): anxiety prior to procedures Smoking Status: Former smoker Past Alcohol Use History: None Reported Additional Past Alcohol Use History / Comment(s): quit 2015, hx of 4 ppd. Past Drug Use History: None Reported - Past Family History Mother Family Medical History: Cancer Additional Family Medical History / Comment(s): colon CA Brother(s) Family Medical History: Cancer Medications and Allergies Home Medications Medication Instructions Recorded Confirmed Type Acetaminophen Tab [Tylenol] 1,000 mg PO Q6H PRN 02/28/20 06/14/23 History Aspirin EC [Ecotrin] 325 mg PO HS 02/28/20 06/14/23 History metFORMIN HCL [Glucophage] 500 mg PO PC-BID 10/25/21 06/14/23 History Cholecalciferol [Vitamin D3 (25 25 mcg PO BID 06/14/23 06/14/23 History Mcg = 1000 Iu)] Dorzolamide-Timol 2.23%/0.68% 1 drop LEFT EYE BID 06/14/23 06/14/23 History [Cosopt] atenoloL [Tenormin] 50 mg PO HS 06/14/23 06/14/23 History icosapent ethyL [Icosapent Ethyl] 1 gm PO PC-BID 06/14/23 06/14/23 History amLODIPine [Norvasc] 10 mg PO DAILY #30 tablet 06/15/23 Rx Allergies Allergy/AdvReac Type Severity Reaction Status Date / Time clopidogrel [From Plavix] Allergy Unknown Rash/Hives, Verified 06/14/23 13:02 itching ezetimibe [From Zetia] Allergy Unknown headaches, Verified 06/14/23 13:02 eye pain, lower extremity tingling omeprazole Allergy Unknown Itching Verified 06/14/23 13:02 iodine Allergy Itching Verified 06/14/23 13:02 Iodine and Iodide Containing Allergy Itching Verified 06/14/23 13:02 Produc Yzyrzpe-USY-XtA Reductase Allergy Anaphylaxis Verified 06/14/23 13:02 Inhibitor [Sumgleh-Din-Sua Reductase Inhibitor] Physical Examination - Vital Signs Vital Signs: Vital Signs Temp Pulse Pulse Resp BP BP Pulse Ox 06/15/23 11:54 65 18 176/91 95 06/15/23 08:00 97.5 F L 75 18 166/80 96 06/15/23 04:25 97.7 F 85 18 177/99 96 06/15/23 02:00 91 18 06/14/23 23:52 97.6 F 95 18 170/93 96 06/14/23 21:10 97.7 F 91 18 172/89 98 06/14/23 20:14 99 16 148/92 96 06/14/23 18:50 98.1 F 90 18 138/86 96 Intake and Output 06/15/23 06/15/23 06/15/23 06:59 14:59 22:59 Intake Total 10 380 Balance 10 380 Intake: IV 10 20 Invasive Line 1 10 20 Oral 360 Other: Voiding Method Toilet # Voids 2 1 Weight 89.6 kg Results - Laboratory Findings CBC and BMP: 06/15/23 08:43 06/15/23 08:43 Abnormal Lab Findings: Abnormal Labs 06/14/23 06/14/23 06/14/23 12:14 12:39 17:06 WBC Neutrophils # Monocytes # Carbon Dioxide BUN 22 H Glucose 136 H POC Glucose (mg/dL) 124 H 232 H Hemoglobin A1c Delta Bilirubin ALT 52 H 06/15/23 06/15/23 06/15/23 06:25 08:43 08:43 WBC Neutrophils # Monocytes # Carbon Dioxide 21 L BUN 23 H Glucose 150 H POC Glucose (mg/dL) 146 H Hemoglobin A1c 6.8 H Delta Bilirubin 0.3 H ALT 06/15/23 06/15/23 08:43 11:13 WBC 22.2 H Neutrophils # 17.0 H Monocytes # 1.3 H Carbon Dioxide BUN Glucose POC Glucose (mg/dL) 174 H Hemoglobin A1c Delta Bilirubin ALT Assessment and Plan Plan: Chart reviewed. Came to see the patient. Patient already has been discharged by PCP, and patient off the floor.
[2023-06-15 18:47] LABS: Chol/HDL Ratio 7.92 Ratio; LDL Cholesterol,Calculated 216.2 mg/dL (0.0-131.0)
[2023-06-15] MEDS ORDERED: ASPIRIN 325 MG TAB PO SCH (21:00)
== END 2023-06-15 16:35 | disposition home or self-care (01) | DRG 948 ==
LOC: EC 11:17 → 3SCARD 14:42
PROVIDERS: ADMIT Internal Medicine; ATTEND Internal Medicine
DX: R53.1 Weakness (principal); E11.51 Type 2 diabetes mellitus with diabetic peripheral angiopathy without gangrene; E78.5 Hyperlipidemia, unspecified; Z86.16 Personal history of COVID-19; K21.9 Gastro-esophageal reflux disease without esophagitis; M19.90 Unspecified osteoarthritis, unspecified site; I44.0 Atrioventricular block, first degree; I10 Essential (primary) hypertension; R20.0 Anesthesia of skin; I65.23 Occlusion and stenosis of bilateral carotid arteries; J44.9 Chronic obstructive pulmonary disease, unspecified; Z79.84 Long term (current) use of oral hypoglycemic drugs; Z79.82 Long term (current) use of aspirin; Z79.899 Other long term (current) drug therapy; Z86.73 Personal history of transient ischemic attack (TIA), and cerebral infarction without residual deficits; Z88.8 Allergy status to other drugs, medicaments and biological substances
CPT/HCPCS: 36415; 70450; 70496; 70498; 71046; 80048; 80053; 80061; 80076; 82550; 83036; 83735; 84443; 84484; 85025; 85610; 85730; 93005; 93880; 96374; 96375; 99291

== ENCOUNTER → 2023-06-29 | Outpatient (CLI) | payer MEDICARE, OTHER | END | disposition home or self-care (01) | LOC: RADNMMAIN 10:44 | PROVIDERS: ATTEND Internal Medicine | DX: Z53.9 Procedure and treatment not carried out, unspecified reason (principal) ==

== ENCOUNTER → 2023-06-29 | Outpatient (CLI) | payer MEDICARE, OTHER ==
--- NOTE | 2023-07-02 10:20 | XR ---
EXAMINATION TYPE: XR bone survey complete DATE OF EXAM: 06/29/2023 2:12 PM CLINICAL INDICATION:Male, 72 years old with history of M89.9 DISORDER OF BONE, UNSPECIFIED; [facility] COMPARISON: CT chest 06/06/2023 and other priors TECHNIQUE: Several radiographics images of the axial and appendicular spine were obtained in multipl e projections. FINDINGS: Skull: No lytic or sclerotic lesions are clearly visible. Spine, Chest: Degenerative changes throughout the spine, greatest in the cervical spine as well as th e L5-S1 level there is disc space narrowing and 10.7 mm anterolisthesis L5 on S1 which could be relat ed to pars defects or may be degenerative. Slightly irregular appearance throughout the spine could be related to the multiple small sclerotic f oci much better seen on CT in the bones throughout the spine and chest including the ribs. Abdomen/Pelvis: Possible sclerotic lesion in the left iliac wing. Other smaller sclerotic lesions may be present but not well appreciated. No evidence of lytic lesion. Extremities: No lytic or sclerotic lesions are clearly visible. Mild degenerative changes of the knee s. No acute osseous abnormalities are suggested. Lungs are clear. Surgical clips in the neck. Atheroscle rotic calcifications of the abdominal aorta with suggestion of possible dilatation up to 3.2 cm-- Con physical therapy aides teacher aorta ultrasound or CTA for better assessment as clinically warranted. IMPRESSION: 1. Possible sclerotic lesion in the left iliac wing. Difficult to identify additional sclerotic lesi ons radiographically (note multiple small sclerotic foci were seen throughout the osseous structures on chest CT). 2. No lytic lesions identified. 3. Nuclear medicine bone scan may be obtained for further evaluation as clinically warranted.
== END | disposition home or self-care (01) ==
LOC: LABWHC1 13:19
PROVIDERS: ATTEND Internal Medicine
DX: M89.9 Disorder of bone, unspecified (principal)
CPT/HCPCS: 77075

== ENCOUNTER → 2023-08-23 | Outpatient (CLI) | payer MEDICARE, OTHER ==
[2023-08-23 11:31] LABS: African American GFR (CKD) 83 (>60 ml/min/1.73 sqM); Blood Urea Nitrogen 18 mg/dL (9-20); Non-African American GFR(CKD) 72 (>60 ml/min/1.73 sqM)
--- NOTE | 2023-08-23 13:10 | CT ---
EXAMINATION TYPE: CT abdomen pelvis w con DATE OF EXAM: 08/23/2023 COMPARISON: None HISTORY: abdominal pain CT DLP: 1338.9 mGycm CONTRAST: CT scan of the abdomen and pelvis is performed with Oral Contrast and with IV Contrast, patient injec keyona with 100 mL of Isovue 300. FINDINGS: LUNG BASES-: No visible nodule. No infiltrate. LIVER/GB: No calcified gallstones. Perihepatic infiltration seen. No space occupying hepatic lesio n. Biliary tree is of normal caliber. PANCREAS: No inflammation. No distinct mass. SPLEEN: No splenic enlargement. 1 cm simple cyst upper Pole spleen. ADRENALS: No nodule. No thickening. KIDNEYS/BLADDER: No hydronephrosis. No nephrolithiasis. No distinct renal mass. Urinary bladder g rossly unremarkable. BOWEL: Normal appendix. Normal bowel caliber. No inflammation. Colonic diverticulosis without diver ticulitis. GENITAL ORGANS: No gross abnormality. LYMPH NODES: No greater than 1cm abdominal or pelvic lymph nodes are appreciated. AORTA: No significant abnormality. OSSEOUS STRUCTURES: No significant abnormality is seen. OTHER: No significant additional abnormality is seen. IMPRESSION: 1. No significant abnormality seen.
== END | disposition home or self-care (01) ==
LOC: RADCTMAIN 10:12
PROVIDERS: ATTEND Internal Medicine Hematology & Oncology
DX: I10 Essential (primary) hypertension (principal); E11.9 Type 2 diabetes mellitus without complications; R93.89 Abnormal findings on diagnostic imaging of other specified body structures; R93.6 Abnormal findings on diagnostic imaging of limbs; R10.9 Unspecified abdominal pain
CPT/HCPCS: 82565; 84520; 74177; 36415; Q9967

== ENCOUNTER 2023-10-07 13:08 | Emergency (ER) | payer MEDICARE, OTHER ==
[2023-10-07 13:23] VITALS: TEMP 98
[2023-10-07 13:44] LABS: Glucose,Whole Blood 176 mg/dL (70-110)
[2023-10-07 14:02] LABS: Basophils # (A) 0.1 k/uL (0-0.2); Basophils % (A) 1 %; Eosinophils # (A) 0.4 k/uL (0-0.7); Eosinophils % (A) 4 %; HCT 46.3 % (39.0-53.0); Lymphocytes # (A) 3.2 k/uL (1.0-4.8); Lymphocytes % (A) 33 %; MCH 29.5 pg (25.0-35.0); MCHC 32.3 g/dL (31.0-37.0); MCV 91.1 fL (80.0-100.0); Mean Platelet Volume 9.3; Monocytes # (A) 0.5 k/uL (0-1.0); Monocytes % (A) 5 %; Neutrophils # (A) 5.3 k/uL (1.3-7.7); Neutrophils % (A) 55 %; Platelet Count 175 k/uL (150-450); RBC 5.08 m/uL (4.30-5.90); RDW 13.9 % (11.5-15.5); WBC 9.7 k/uL (3.8-10.6)
[2023-10-07 14:16] LABS: Partial Thromboplastin Time 22.9 sec (22.0-30.0); Prothrombin Time 10.9 sec (10.0-12.5)
[2023-10-07] MEDS: diphenhydrAMINE 25 MG CAP PO STA (14:16)
[2023-10-07] MEDS: SODIUM CHLORIDE 0.9% 1,000 ML IV STA (14:16)
[2023-10-07 14:22] LABS: ALT 44 U/L (4-49); AST 52 U/L (17-59); African American GFR (CKD) 83 (>60 ml/min/1.73 sqM); Albumin 4.6 g/dL (3.5-5.0); Alkaline Phosphatase 58 U/L (38-126); Anion Gap 10 mmol/L; Blood Urea Nitrogen 18 mg/dL (9-20); Calcium 9.5 mg/dL (8.4-10.2); Carbon Dioxide 21 mmol/L (22-30); Chloride 107 mmol/L (98-107); Glucose 184 mg/dL (74-99); Magnesium 1.9 mg/dL (1.6-2.3); Non-African American GFR(CKD) 72 (>60 ml/min/1.73 sqM); Potassium 4.4 mmol/L (3.5-5.1); Sodium 138 mmol/L (137-145); Total Bilirubin 0.7 mg/dL (0.2-1.3); Total Protein 7.2 g/dL (6.3-8.2)
[2023-10-07 14:28] LABS: NT-Pro-B-Type Natriuretic Pept 129 pg/mL
--- NOTE | 2023-10-07 14:37 | XR ---
EXAMINATION TYPE: XR chest 2V DATE OF EXAM: 10/07/2023 COMPARISON: 06/14/2023 HISTORY: 72 year-old male shortness of breath, difficulty breathing TECHNIQUE: PA and lateral views FINDINGS: The cardiomediastinal silhouette, aorta, and pulmonary vasculature are within normal limits. Mild hyp erinflation. Lungs and pleural spaces are clear. IMPRESSION: COPD. No acute cardiopulmonary process.
--- NOTE | 2023-10-07 15:18 | ED ---
General Adult HPI - General Chief complaint: Shortness of Breath Stated complaint: NESTOR,Earache Time Seen by Provider: 10/07/23 13:38 Source: patient, RN notes reviewed, old records reviewed Mode of arrival: ambulatory Limitations: no limitations - History of Present Illness Initial comments: Is a 72-year-old male with past medical history remarkable for anxiety, diabetes, prior TIA, hypertension, hyperlipidemia, COVID. Also questionable his tory of malignancy with uncertain workup. States he feels like he is unable to catch his breath intermittently. This been an ongoing process. Has noticed elevated blood pressure intermittently as well. Presents for evaluation at this time. States he does have anxiety and typically symptoms resolve when he takes a Benadryl or he sits down and does deep breathing exercises. Denies any fevers, chills, cough. Denies chest pain. Denies abdominal pain. Denies nausea or vomiting or diarrhea. No other acute complaints at this time. No recent long distance travel or lower extremity edema. Presents for further evaluation. Patient is also complaining of ear fullness sensation in the mornin g when he wakes up like they are plugged.Patient describes the symptoms of being unable to catch his breath. No known palliative or provocative factors. - Related Data Home Medications Medication Instructions Recorded Confirmed Acetaminophen Tab [Tylenol] 1,000 mg PO Q6H PRN 02/28/20 06/14/23 Aspirin EC [Ecotrin] 325 mg PO HS 02/28/20 06/14/23 metFORMIN HCL [Glucophage] 500 mg PO PC-BID 10/25/21 06/14/23 Cholecalciferol [Vitamin D3 (25 25 mcg PO BID 06/14/23 06/14/23 Mcg = 1000 Iu)] Dorzolamide-Timol 2.23%/0.68% 1 drop LEFT EYE BID 06/14/23 06/14/23 [Cosopt] atenoloL [Tenormin] 50 mg PO HS 06/14/23 06/14/23 icosapent ethyL [Icosapent Ethyl] 1 gm PO PC-BID 06/14/23 06/14/23 Previous Rx's Medication Instructions Recorded amLODIPine [Norvasc] 10 mg PO DAILY #30 tablet 06/15/23 Albuterol Inhaler [Ventolin Hfa 1 puff INHALATION QID #8 gm 10/07/23 Inhaler] Allergies Allergy/AdvReac Type Severity Reaction Status Date / Time clopidogrel [From Plavix] Allergy Unknown Rash/Hives, Verified 10/07/23 13:21 itching ezetimibe [From Zetia] Allergy Unknown headaches, Verified 10/07/23 13:21 eye pain, lower extremity tingling omeprazole Allergy Unknown Itching Verified 10/07/23 13:21 iodine Allergy Itching Verified 10/07/23 13:21 Iodine and Iodide Containing Allergy Itching Verified 10/07/23 13:21 Produc Vurlvqt-KPL-HgX Reductase Allergy Anaphylaxis Verified 10/07/23 13:21 Inhibitor [Jnidqyq-Msv-Cuf Reductase Inhibitor] Review of Systems ROS Statement: Those systems with pertinent positive or pertinent negative responses have been documented in the HPI. Review of Systems: CONST: Denies fever EYES: Denies blurry vision ENT: Denies nasal congestion C/V: Denies Chest pain RESP: Denies shortness of breath GI: Denies abdominal pain : Denies dysuria SKIN: Denies rash. MSK: Denies joint pain. NEURO: Denies headache ROS Other: All systems not noted in ROS Statement are negative. Past Medical History Past Medical History: CVA/TIA, Diabetes Mellitus, GERD/Reflux, Hyperlipidemia, Hypertension, Osteoarthritis (OA) Additional Past Medical History / Comment(s): TIA (2015)., Hospitalized for Covid 2019. 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 sternal biopsy 03/01 Past Anesthesia/Blood Transfusion Reactions: No Reported Reaction Past Psychological History: No Psychological Hx Reported Smoking Status: Former smoker Past Alcohol Use History: None Reported Past Drug Use History: None Reported - Past Family History Mother Family Medical History: Cancer Additional Family Medical History / Comment(s): colon CA Brother(s) Family Medical History: Cancer General Exam - General Exam Comments Initial Comments: General: Appears in no acute distress. HEAD: Normal with no signs of head trauma. EYES: PERRLA, EOMI, conjunctiva normal, no discharge. ENT: Hearing grossly intact, normal oropharynx. RESPIRATORY: Clear breath sounds bilaterally. No wheezes, rales, or rhonchi. C/V: Regular rate and rhythm. S1 and S2 auscultated, no edema, peripheral pulses 2+ and intact throughout ABD: Abd is soft, nontender, nondistended EXT: Normal range of motion, no obvious deformity SKIN: No rashes or lesions observed on exposed skin. NEURO: Alert and oriented x 4. Cranial nerves II-XII intact. No focal sensory or strength deficits. Limitations: no limitations Course Vital Signs 10/07/23 10/07/23 10/07/23 13:17 14:18 14:39 Temperature 98.0 F Pulse Rate 71 63 Respiratory 20 20 20 Rate Blood Pressure 164/87 155/79 O2 Sat by Pulse 97 95 Oximetry 10/07/23 15:39 Temperature Pulse Rate 80 Respiratory 16 Rate Blood Pressure 140/89 O2 Sat by Pulse 98 Oximetry Medical Decision Making - Medical Decision Making Was pt. sent in by a medical professional or institution (, [facility], [facility], urgent care, hospital, or fdc...) When possible be specific @ -No Did you speak to anyone other than the patient for history (EMS, parent, family, police, friend...)? What history was obtained from this source @ -No Did you review nursing and triage notes (agree or disagree)? Why? @ -I reviewed and agree with nursing and triage notes Were old charts reviewed (outside hosp., previous admission, EMS record, old EKG, old radiological studies, urgent care reports/EKG's, fdc records)? Report findings @ -Old charts were reviewed including imaging from August as well as visit back in June. Worked up for stroke as well as possible malignant lesions in bones before. Indeterminate workup at that time. No continued symptoms. Differential Diagnosis (chest pain, altered mental status, abdominal pain women, abdominal pain men, vaginal bleeding, weakness, fever, dyspnea, syncope, headache, dizziness, GI bleed, back pain, seizure, CVA, palpatations, mental health, musculoskeletal)? @ -Differential Dyspnea: Coronary syndrome, arrhythmia, tamponade, asthma, COPD, pulmonary embolism, pneumonia, pneumothorax, pulmonary effusion, anaphylaxis, diabetic ketoacidosis, flailed chest, pulmonary contusion, diaphragmatic rupture, anemia, neuromuscular, this is not meant to be an all-inclusive list. EKG interpreted by me (3pts min.). @ -As above X-rays interpreted by me (1pt min.). @ -X-ray reveals no obvious acute cardiopulmonary process. CT interpreted by me (1pt min.). @ -None done U/S interpreted by me (1pt. min.). @ -None done What testing was considered but not performed or refused? (CT, X-rays, U/S, labs)? Why? @ -None What meds were considered but not given or refused? Why? @ -None Did you discuss the management of the patient with other professionals (professionals i.e. , PA, [facility], lab, RT, psych nurse, social media campaign manager, edger feeder, teacher, general service officer, returned case inspector)? Give summary @ -No Was smoking cessation discussed for >3mins.? @ -No Was critical care preformed (if so, how long)? @ -No Were there social determinants of health that impacted care today? How? (Homelessness, low income, unemployed, alcoholism, drug addiction, transportation, low edu. Level, literacy, decrease access to med. care, longterm, rehab)? @ -No Was there de-escalation of care discussed even if they declined (Discuss DNR or withdrawal of care, Hospice)? DNR status @ -No What co-morbidities impacted this encounter? (DM, HTN, Smoking, COPD, CAD, Cancer, CVA, ARF, Chemo, Hep., AIDS, mental health diagnosis, sleep apnea, morbid obesity)? @ -None Was patient admitted / discharged? Hospital course, mention meds given and route , prescriptions, significant lab abnormalities, going to OR and other pertinent info. @ -Based on patient's presentation and physical exam, we will obtain dyspnea workup. Seems it may be related to anxiety as it resolves when patient does deep breathing exercises or takes a Benadryl however we will obtain screening labs for possible PE as well as heart failure. Patient was in agreement this plan. Vital signs within acceptable limits. EKG shows no signs of acute ischemia. Laboratory studies remarkable for a D-dimer that is age-adjusted within normal limits. Troponin undetectable. BNP within normal limits. Remainder the workup unremarkable. Discussed results with the patient. He is asymptomatic at this time after receiving a dose of Benadryl. He will be discharged home at this time with strict return precautions. Patient in agreement this plan. Recommended he follow-up with his PCP Dr. Palma this week. He was in agreement the plan. Requesting albuterol inhaler refill I will provide the patient with a prescription for albuterol. I instructed the patient to follow up with their PCP in the next 1-3 days . I explained that the patient should return to the emergency department if they experience any worsening symptoms. Strict return precautions were discussed with the patient. The patient expressed understanding of these instructions. I answered all questions that the patient had. The patient was discharged home in good condition with their prescriptions and follow up information. Undiagnosed new problem with uncertain prognosis? @ -No Drug Therapy requiring intensive monitoring for toxicity (Heparin, Nitro, Insulin, Cardizem)? @ -No Were any procedures done? @ -No Diagnosis/symptom? @ -Anxiety Acute, or Chronic, or Acute on Chronic? @ -Acute Uncomplicated (without systemic symptoms) or Complicated (systemic symptoms)? @ -Complicated Side effects of treatment? @ -No Exacerbation, Progression, or Severe Exacerbation? @ -No Poses a threat to life or bodily function? How? (Chest pain, USA, MD, pneumonia, PE, COPD, DKA, ARF, appy, cholecystitis, CVA, Diverticulitis, Homicidal, Suicidal, threat to staff... and all critical care pts) @ -No - Lab Data Result diagrams: 10/07/23 13:45 10/07/23 13:45 Lab Results 10/07/23 10/07/23 10/07/23 Range/Units 13:42 13:45 13:45 WBC 9.7 (3.8-10.6) k/uL RBC 5.08 (4.30-5.90) m/uL Hgb 15.0 (13.0-17.5) gm/dL Hct 46.3 (39.0-53.0) % MCV 91.1 (80.0-100.0) fL MCH 29.5 (25.0-35.0) pg MCHC 32.3 (31.0-37.0) g/dL RDW 13.9 (11.5-15.5) % Plt Count 175 (150-450) k/uL MPV 9.3 Neutrophils % 55 % Lymphocytes % 33 % Monocytes % 5 % Eosinophils % 4 % Basophils % 1 % Neutrophils # 5.3 (1.3-7.7) k/uL Lymphocytes # 3.2 (1.0-4.8) k/uL Monocytes # 0.5 (0-1.0) k/uL Eosinophils # 0.4 (0-0.7) k/uL Basophils # 0.1 (0-0.2) k/uL PT 10.9 (10.0-12.5) sec INR 1.0 (<1.2) APTT 22.9 (22.0-30.0) sec D-Dimer 0.64 H (<0.60) mg/L FEU Sodium (137-145) mmol/L Potassium (3.5-5.1) mmol/L Chloride (98-107) mmol/L Carbon Dioxide (22-30) mmol/L Anion Gap mmol/L BUN (9-20) mg/dL Creatinine (0.66-1.25) mg/dL Est GFR (CKD-EPI)AfAm (>60 ml/min/1.73 sqM) Est GFR (CKD-EPI)NonAf (>60 ml/min/1.73 sqM) Glucose (74-99) mg/dL POC Glucose (mg/dL) 176 H (70-110) mg/dL POC Glu Safety Teacher ID Nickerson, Saray Calcium (8.4-10.2) mg/dL Magnesium (1.6-2.3) mg/dL Total Bilirubin (0.2-1.3) mg/dL AST (17-59) U/L ALT (4-49) U/L Alkaline Phosphatase (38-126) U/L Troponin I (0.000-0.034) ng/mL NT-Pro-B Natriuret Pep pg/mL Total Protein (6.3-8.2) g/dL Albumin (3.5-5.0) g/dL Influenza Type A (PCR) (Not Detectd) Influenza Type B (PCR) (Not Detectd) RSV (PCR) (Not Detectd) SARS-CoV-2 (PCR) (Not Detectd) 10/07/23 10/07/23 10/07/23 Range/Units 13:45 13:45 13:45 WBC (3.8-10.6) k/uL RBC (4.30-5.90) m/uL Hgb (13.0-17.5) gm/dL Hct (39.0-53.0) % MCV (80.0-100.0) fL MCH (25.0-35.0) pg MCHC (31.0-37.0) g/dL RDW (11.5-15.5) % Plt Count (150-450) k/uL MPV Neutrophils % % Lymphocytes % % Monocytes % % Eosinophils % % Basophils % % Neutrophils # (1.3-7.7) k/uL Lymphocytes # (1.0-4.8) k/uL Monocytes # (0-1.0) k/uL Eosinophils # (0-0.7) k/uL Basophils # (0-0.2) k/uL PT (10.0-12.5) sec INR (<1.2) APTT (22.0-30.0) sec D-Dimer (<0.60) mg/L FEU Sodium 138 (137-145) mmol/L Potassium 4.4 (3.5-5.1) mmol/L Chloride 107 (98-107) mmol/L Carbon Dioxide 21 L (22-30) mmol/L Anion Gap 10 mmol/L BUN 18 (9-20) mg/dL Creatinine 1.05 (0.66-1.25) mg/dL Est GFR (CKD-EPI)AfAm 83 (>60 ml/min/1.73 sqM) Est GFR (CKD-EPI)NonAf 72 (>60 ml/min/1.73 sqM) Glucose 184 H (74-99) mg/dL POC Glucose (mg/dL) (70-110) mg/dL POC Glu Safety Teacher ID Calcium 9.5 (8.4-10.2) mg/dL Magnesium 1.9 (1.6-2.3) mg/dL Total Bilirubin 0.7 (0.2-1.3) mg/dL AST 52 (17-59) U/L ALT 44 (4-49) U/L Alkaline Phosphatase 58 (38-126) U/L Troponin I <0.012 (0.000-0.034) ng/mL NT-Pro-B Natriuret Pep 129 pg/mL Total Protein 7.2 (6.3-8.2) g/dL Albumin 4.6 (3.5-5.0) g/dL Influenza Type A (PCR) Not Detected (Not Detectd) Influenza Type B (PCR) Not Detected (Not Detectd) RSV (PCR) Not Detected (Not Detectd) SARS-CoV-2 (PCR) Not Detected (Not Detectd) - EKG Data -: EKG Interpreted by Me EKG Comments: 12-lead Electrocardiogram Interpretation Note EKG was reviewed and interpreted by myself. 12-lead ECG performed at 1330 is interpreted by me as revealing normal sinus rhythm at a rate of 66 beats per minute. Superior is normal. OH interval is 219 ms, QRS duration is 82 ms, QTc is 411 ms.. There were no ST or T wave abnormalities to suggest myocardial ischemia or injury. R wave progression across the precordium was satisfactory. By my interpretation this EKG is non-diagnostic for acute ischemia. Disposition Clinical Impression: Anxiety, Congestion of both ears Disposition: HOME SELF-CARE Condition: Good Instructions (If sedation given, give patient instructions): Anxiety (ED) Additional Instructions: obtain decongestant like claritin/loratidine for ear congestion. Prescriptions: Albuterol Inhaler [Ventolin Hfa Inhaler] 1 puff INHALATION QID #8 gm Is patient prescribed a controlled substance at d/c from ED?: No Referrals: Vinny Matthews DO [Primary Care Provider] - 1-2 days Time of Disposition: 15:17
[2023-10-07 15:40] VITALS: BP 140/89; PULSE 80; RESP 16
== END 2023-10-07 15:35 | disposition home or self-care (01) ==
LOC: EC 13:08
DX: F41.9 Anxiety disorder, unspecified (principal); H83.8X3 Other specified diseases of inner ear, bilateral; Z91.041 Radiographic dye allergy status; Z88.8 Allergy status to other drugs, medicaments and biological substances; Z87.891 Personal history of nicotine dependence
CPT/HCPCS: 36415; 71046; 80053; 83735; 83880; 84484; 85025; 85379; 85610; 85730; 87636; 93005; 96360; 99285

== ENCOUNTER → 2023-10-17 | Outpatient (CLI) | payer MEDICARE, OTHER ==
[2023-10-17 15:48] LABS: Basophils # (A) 0.07 X 10*3/uL (0.00-0.10); Basophils % (A) 0.7 %; Eosinophils # (A) 0.35 X 10*3/uL (0.04-0.35); Eosinophils % (A) 3.4 %; HCT 43.9 % (39.6-50.0); HGB 14.3 g/dL (13.0-17.0); Lymphocytes # (A) 3.35 X 10*3/uL (0.90-5.00); Lymphocytes % (A) 32.9 %; MCH 29.7 pg (27.0-32.0); MCHC 32.6 g/dL (32.0-37.0); MCV 91.3 FL (80.0-97.0); Mean Platelet Volume 12.4 FL (9.5-12.2); Monocytes # (A) 0.77 X 10*3/uL (0.20-1.00); Monocytes % (A) 7.6 %; NRBC Per 100 WBC 0 X 10*3/uL (0.00-0.01); Neutrophils % (A) 55.1 %; Platelet Count 188 X 10*3/uL (140-440); RBC 4.81 X 10*6/uL (4.40-5.60); RDW 13.5 % (11.5-14.5); WBC 10.17 X 10*3/uL (4.50-10.00)
[2023-10-17 16:14] LABS: Iron 76 UG/DL (65-175); Magnesium 1.8 mg/dL (1.5-2.4); Total Iron Binding Capacity 398 UG/DL (228-460)
[2023-10-17 16:15] LABS: ALT 45 U/L (10-49); AST 32 U/L (14-35); Albumin 4.6 g/dL (3.8-4.9); Alkaline Phosphatase 65 U/L (41-126); BUN/Creat Ratio 21.09 Ratio (12.00-20.00); Blood Urea Nitrogen 23.2 mg/dL (9.0-27.0); Calcium 9.9 mg/dL (8.7-10.3); Carbon Dioxide 22.9 mmol/L (21.6-31.8); Chloride 103 mmol/L (96-109); Ferritin 91.6 ng/mL (22.0-322.0); Globulin 2.3 g/dL (1.6-3.3); Glucose 145 mg/dL (70-110); Potassium 4.9 mmol/L (3.5-5.5); Sodium 140 mmol/L (135-145); Total Bilirubin 0.3 mg/dL (0.3-1.2); Total Protein 6.9 g/dL (6.2-8.2)
== END | disposition home or self-care (01) ==
LOC: LABWHC1 10:20
PROVIDERS: ATTEND Internal Medicine
DX: I10 Essential (primary) hypertension (principal); E78.5 Hyperlipidemia, unspecified; E55.9 Vitamin D deficiency, unspecified; E53.8 Deficiency of other specified B group vitamins
CPT/HCPCS: 36415; 80053; 82306; 82607; 82728; 82746; 83540; 83550; 83735; 85025

== ENCOUNTER → 2023-10-18 | Outpatient (CLI) | payer MEDICARE, OTHER ==
[2023-10-18 15:35] LABS: Chol/HDL Ratio 8.21 Ratio; HDL Cholesterol 29.6 mg/dL (40.00-60.00)
== END | disposition home or self-care (01) ==
LOC: LABWHC1 11:16
PROVIDERS: ATTEND Internal Medicine
DX: I10 Essential (primary) hypertension (principal); E78.5 Hyperlipidemia, unspecified; E53.8 Deficiency of other specified B group vitamins; E55.9 Vitamin D deficiency, unspecified
CPT/HCPCS: 36415; 80061; 83721

== ENCOUNTER → 2023-11-06 | Outpatient (CLI) | payer MEDICARE, OTHER | LOC: CPPFTMAIN 09:47 | PROVIDERS: ATTEND Internal Medicine | DX: J44.9 Chronic obstructive pulmonary disease, unspecified (principal); Z88.8 Allergy status to other drugs, medicaments and biological substances; Z91.041 Radiographic dye allergy status; Z79.899 Other long term (current) drug therapy | CPT/HCPCS: 94060; 94726; 94729 ==

== ENCOUNTER → 2024-03-03 | Outpatient (CLI) | payer MEDICARE, OTHER ==
[2024-03-03 10:30] LABS: African American GFR (CKD) 74 (>60 ml/min/1.73 sqM); Blood Urea Nitrogen 32 mg/dL (9-20); Non-African American GFR(CKD) 64 (>60 ml/min/1.73 sqM)
--- NOTE | 2024-03-03 12:02 | CT ---
EXAMINATION TYPE: CT abdomen pelvis w con CT DLP: 1637.50 mGycm, Automated exposure control for dose reduction was used. DATE OF EXAM: 03/03/2024 11:41 AM COMPARISON: CT abdomen pelvis 08/23/2023, bone survey 06/29/2023 CLINICAL INDICATION:Male, 73 years old with history of M89.9 DISORDER OF BONE, UNSPECIFIED; BONE LESI ONS TECHNIQUE: Standard CT of the abdomen and pelvis following the administration of 100 cc of Isovue 3 00 IV contrast material and oral contrast. Coronal and sagittal reformats were performed. FINDINGS: LOWER CHEST: The visualized lung bases are clear. Coronary artery calcifications. ABDOMEN LIVER: Unremarkable GALLBLADDER AND BILE DUCTS: Unremarkable. PANCREAS: Unremarkable. SPLEEN: Stable small cyst within the spleen. ADRENAL GLANDS: Unremarkable. KIDNEYS AND URETERS: No evidence of hydronephrosis or renal calculus. The kidneys enhance symmetrical ly. Contrast is demonstrated within both collecting systems on the delayed phase. PELVIS BLADDER: Unremarkable REPRODUCTIVE: Coarse calcifications of the prostate gland are identified. ABDOMEN & PELVIS STOMACH AND BOWEL: Stomach and duodenum are unremarkable. Distal colonic diverticulosis without evide nce for acute diverticulitis. Enteric contrast reaches the mid transverse colon. No focal bowel wall thickening or surrounding inflammatory changes. The appendix is within normal limits. No evidence of bowel obstruction. PERITONEUM: No evidence of pneumoperitoneum or free fluid. VASCULATURE: Mild atherosclerotic calcifications are present throughout the abdominal aorta and its b ranches. No evidence of aortic aneurysm. Infrarenal abdominal aortic ectasia measuring up to 2.8 cm r edemonstrated. Focal region of eccentric mural thrombus identified again within the infrarenal abdomi nal aorta. MUSCULOSKELETAL: No acute osseous abnormalities. Grade 1 anterolisthesis of L4 on L5 with bilateral p ars defects. Innumerable subcentimeter sclerotic foci identified throughout the osseous structures mo st prominently within the vertebral bodies. Sclerotic 1 cm lesion within the posterior right iliac marga ne (series 8, image 55). Schmorl's node involving the superior endplate of the L4 vertebral body. LYMPH NODES: No evidence for lymphadenopathy. SOFT TISSUE/ABDOMINAL WALL: Unremarkable IMPRESSION: 1. No acute abdominal/pelvic process. 2. Scattered subcentimeter sclerotic foci within the osseous structures most prominently within the v ertebral bodies. Additional sclerotic 1 cm lesion within the posterior right iliac bone. These are no nspecific and could represent metastatic disease versus osteopoikilosis versus other etiologies. Cons ider further evaluation to clear medicine bone scan. 3. Colon diverticulosis without evidence for acute diverticulitis. 4. Similar grade 1 anterolisthesis of L4 on L5 with bilateral pars defects. 5. Stable infrarenal abdominal aortic ectasia measuring up to 2.8 cm. [facility], , 03/03/2024 11:59 AM
== END | disposition home or self-care (01) ==
LOC: RADCTMAIN 09:21
PROVIDERS: ATTEND Internal Medicine
DX: M89.9 Disorder of bone, unspecified (principal); K57.30 Diverticulosis of large intestine without perforation or abscess without bleeding; M43.16 Spondylolisthesis, lumbar region; I77.811 Abdominal aortic ectasia
CPT/HCPCS: 82565; 84520; 74177; 36415; Q9967

== ENCOUNTER 2024-06-04 10:42 | Emergency (ER) | payer MEDICARE, OTHER ==
--- NOTE | 2024-06-04 10:58 | ED ---
Dizziness HPI - General Chief Complaint: Dizziness Stated Complaint: dizziness Time Seen by Provider: 06/04/24 10:47 Source: patient, EMS, RN notes reviewed, old records reviewed Mode of arrival: EMS Limitations: altered mental status - History of Present Illness Initial Comments: This is a 73-year-old male to the ER for evaluation today. Patient presents for dizziness today, patient started taking prep for CT scan that he was scheduled to have today here in the hospital. Patient presented to the ER for evaluation of dizziness, patient states he was not lightheaded the room was not spinning but he did feel he was off balance. The symptoms have generally resolved here with no headache chest pain shortness of breath abdominal pain. Outpatient CAT scan is scheduled after getting outpatient PET scan, patient would like to get this done today if possible but he does admit he is not taking the oral prep MD Complaint: dizziness, difficulty walking -: hour(s) Timing: gradual onset Description: off-balance History of Same: No History of Trauma: No Severity: mild Improves With: nothing Worsens With: nothing Associated Symptoms: denies other symptoms - Related Data Home Medications Medication Instructions Recorded Confirmed Aspirin EC [Ecotrin] 325 mg PO DAILY 02/28/20 06/04/24 metFORMIN HCL [Glucophage] 500 mg PO BID 10/25/21 06/04/24 Cholecalciferol [Vitamin D3 (25 50 mcg PO BID 06/14/23 06/04/24 Mcg = 1000 Iu)] atenoloL [Tenormin] 50 mg PO DAILY 06/14/23 06/04/24 icosapent ethyL [Icosapent Ethyl] 2 gm PO BID 06/14/23 06/04/24 Albuterol Inhaler [Ventolin Hfa 1 puff INHALATION RT-QID PRN 06/04/24 06/04/24 Inhaler] amLODIPine [Norvasc] 5 mg PO DAILY 06/04/24 06/04/24 Allergies Allergy/AdvReac Type Severity Reaction Status Date / Time clopidogrel [From Plavix] Allergy Unknown Rash/Hives, Verified 06/04/24 12:37 itching ezetimibe [From Zetia] Allergy Unknown headaches, Verified 06/04/24 12:37 eye pain, lower extremity tingling omeprazole Allergy Unknown Itching Verified 06/04/24 12:37 iodine Allergy Itching Verified 06/04/24 12:37 Iodine and Iodide Containing Allergy Itching Verified 06/04/24 12:37 Produc Xnljibb-BQX-NuZ Reductase Allergy Anaphylaxis Verified 06/04/24 12:37 Inhibitor [Vjbmcdt-Wfx-Vlt Reductase Inhibitor] Review of Systems ROS Statement: Those systems with pertinent positive or pertinent negative responses have been documented in the HPI. ROS Other: All systems not noted in ROS Statement are negative. Past Medical History Past Medical History: CVA/TIA, Diabetes Mellitus, GERD/Reflux, Hyperlipidemia, Hypertension, Osteoarthritis (OA) Additional Past Medical History / Comment(s): TIA (2015)., Hospitalized for Covid 2019. 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 sternal biopsy 03/01 Past Anesthesia/Blood Transfusion Reactions: No Reported Reaction Past Psychological History: No Psychological Hx Reported Smoking Status: Former smoker Past Alcohol Use History: None Reported Past Drug Use History: None Reported - Past Family History Mother Family Medical History: Cancer Additional Family Medical History / Comment(s): colon CA Brother(s) Family Medical History: Cancer General Exam General appearance: alert, in no apparent distress Head exam: Present: atraumatic, normocephalic, normal inspection Eye exam: Present: normal appearance, PERRL, EOMI. Absent: scleral icterus, conjunctival injection, periorbital swelling ENT exam: Present: normal exam, mucous membranes moist Neck exam: Present: normal inspection. Absent: tenderness, meningismus, lymphadenopathy Respiratory exam: Present: normal lung sounds bilaterally. Absent: respiratory distress, wheezes, rales, rhonchi, stridor Cardiovascular Exam: Present: regular rate, normal rhythm, normal heart sounds. Absent: systolic murmur, diastolic murmur, rubs, gallop, clicks GI/Abdominal exam: Present: soft, normal bowel sounds. Absent: distended, tenderness, guarding, rebound, rigid Extremities exam: Present: normal inspection, full ROM, normal capillary refill. Absent: tenderness, pedal edema, joint swelling, calf tenderness Back exam: Present: normal inspection Neurological exam: Present: alert, oriented X3, CN II-XII intact Psychiatric exam: Present: normal affect, normal mood Skin exam: Present: warm, dry, intact, normal color. Absent: rash Course Vital Signs 06/04/24 06/04/24 10:43 14:41 Temperature 97.6 F 98.0 F Pulse Rate 76 68 Respiratory 20 18 Rate Blood Pressure 148/84 131/76 O2 Sat by Pulse 97 98 Oximetry - Reevaluation(s) Reevaluation #1: 06/04/24 12:38 Medical records reviewed Reevaluation #2: 06/04/24 12:38 Patient has no recurrent dizziness patient is able to ambulate here in the ER Patient is becoming very agitated regarding CT scan, he states he cannot sit through a CT scan here in the emergency room and he will not get a CT scan of his head and is refusing, patient also states that he did not take his oral prep for the CT of his chest abdomen pelvis only spoke with the doctor ordering and it has been canceled Reevaluation #3: 06/04/24 12:39 Patient informed of results questions answered Reevaluation #4: Was pt. sent in by a medical professional or institution (Dr. PA, SUPERVISOR HARVESTING, urgent care, hospital, or shelter...) When possible be specific @ -no Did you speak to anyone other than the patient for history (EMS, parent, family, police, friend...)? What history was obtained from this source @ -no Did you review nursing and triage notes (agree or disagree)? Why? @ -agree Are old charts reviewed (outside hosp., previous admission, EMS record, old EKG, old radiological studies, urgent care reports/EKG's, shelter records)? Report findings @ -yes Differential Diagnosis (chest pain, altered mental status, abdominal pain women, abdominal pain men, vaginal bleeding, weakness, fever, dyspnea, syncope, headache, dizziness, GI bleed, back pain, seizure, CVA, palpatations, mental health, musculoskeletal)? @ -prior EKG interpreted by me (3pts min.). @ -yes X-rays interpreted by me (1pt min.). @ -no CT interpreted by me (1pt min.). @ -no U/S interpreted by me (1pt. min.). @ -no What testing was considered but not performed or refused? (CT, X-rays, U/S, labs)? Why? @ -none What meds were considered but not given or refused? Why? @ -none Did you discuss the management of the patient with other professionals (professionals i.e. , PA, SUPERVISOR HARVESTING, lab, RT, psych nurse, social service manager, rose grader, teacher, field artillery officer, case supervisor)? Give summary @ -no Was smoking cessation discussed for >3mins.? @ -no Was critical care preformed (if so, how long)? @ -no Were there social determinants of health that impacted care today? How? (Homelessness, low income, unemployed, alcoholism, drug addiction, transportation, low edu. Level, literacy, decrease access to med. care, penitentiary, rehab)? @ -none Was there de-escalation of care discussed even if they declined (Discuss DNR or withdrawal of care, Hospice)? DNR status @ -no What co-morbidities impacted this encounter? (DM, HTN, Smoking, COPD, CAD, Cancer, CVA, ARF, Chemo, Hep., AIDS, mental health diagnosis, sleep apnea, morbid obesity)? @ -none Was patient admitted / discharged? Hospital course, mention meds given and route, prescriptions, significant lab abnormalities, going to OR and other pertinent info. @ - 73 male to the ER for evaluation patient coming in for dizziness off balance refusing CT scan, refusing admission, patient will be discharged home after giving IV resuscitation here in the ER Discharge Undiagnosed new problem with uncertain prognosis? @ -no Drug Therapy requiring intensive monitoring for toxicity (Heparin, Nitro, Insulin, Cardizem)? @ -no Were any procedures done? @ -no Diagnosis/symptom? @ -Dizziness Acute, or Chronic, or Acute on Chronic? @ -Acute Uncomplicated (without systemic symptoms) or Complicated (systemic symptoms)? @ -Complicated Side effects of treatment? @ -no Exacerbation, Progression, or Severe Exacerbation? @ -exacerbation Poses a threat to life or bodily function? How? (Chest pain, [place], [place], pneumonia, PE, COPD, DKA, ARF, appy, cholecystitis, CVA, Diverticulitis, Homicidal, Suicidal, threat to staff... and all critical care pts) @ -yes extremes of age Reevaluation #5: Differential Dizziness: Benign paroxysmal positional Vertigo, Meniere's disease, otitis media, acoustic neuroma, vertebrobasilar insufficiency, cerebellar stroke, encephalitis, hypovolemic, arrhythmia, coronary artery syndrome, anemia, this is not meant to be an all-inclusive list EKG Findings - EKG Comments: EKG Findings:: EKG is sinus 73 ID 218 QRS 93 QTc 420 - EKG Results: EKG: interpreted by [facility] Medical Decision Making - Medical Decision Making 73 male to the ER for evaluation patient coming in for dizziness off balance refusing CT scan, refusing admission, patient will be discharged home after giving IV resuscitation here in the ER - Lab Data Result diagrams: 06/04/24 13:35 06/04/24 11:06 Lab Results 06/04/24 06/04/24 06/04/24 Range/Units 11:06 11:06 11:06 WBC (3.8-10.6) k/uL RBC (4.30-5.90) m/uL Hgb (13.0-17.5) gm/dL Hct (39.0-53.0) % MCV (80.0-100.0) fL MCH (25.0-35.0) pg MCHC (31.0-37.0) g/dL RDW (11.5-15.5) % Plt Count (150-450) k/uL MPV Neutrophils % % Lymphocytes % % Monocytes % % Eosinophils % % Basophils % % Neutrophils # (1.3-7.7) k/uL Lymphocytes # (1.0-4.8) k/uL Monocytes # (0-1.0) k/uL Eosinophils # (0-0.7) k/uL Basophils # (0-0.2) k/uL Sodium 138 (137-145) mmol/L Potassium 5.0 (3.5-5.1) mmol/L Chloride 104 (98-107) mmol/L Carbon Dioxide 18 L (22-30) mmol/L Anion Gap 16 mmol/L BUN 27 H (9-20) mg/dL Creatinine 1.02 (0.66-1.25) mg/dL Est GFR (CKD-EPI)AfAm 85 (>60 ml/min/1.73 sqM) Est GFR (CKD-EPI)NonAf 73 (>60 ml/min/1.73 sqM) Glucose 246 H (74-99) mg/dL Lactic Ac Sepsis Rflx Plasma Lactic Acid Rivas 4.1 H* (0.7-2.0) mmol/L Calcium 10.0 (8.4-10.2) mg/dL Phosphorus 3.1 (2.5-4.5) mg/dL Magnesium 1.6 (1.6-2.3) mg/dL Total Bilirubin 0.6 (0.2-1.3) mg/dL AST 39 (17-59) U/L ALT 49 (4-49) U/L Alkaline Phosphatase 65 (38-126) U/L Troponin I <0.012 (0.000-0.034) ng/mL NT-Pro-B Natriuret Pep 303 pg/mL Total Protein 7.4 (6.3-8.2) g/dL Albumin 4.5 (3.5-5.0) g/dL Urine Color Urine Appearance (Clear) Urine pH (5.0-8.0) Ur Specific [place] (1.001-1.035) Urine Protein (Negative) Urine Glucose (UA) (Negative) Urine Ketones (Negative) Urine Blood (Negative) Urine Nitrite (Negative) Urine Bilirubin (Negative) Urine Urobilinogen (<2.0) mg/dL Ur Leukocyte Esterase (Negative) 06/04/24 06/04/24 06/04/24 Range/Units 11:40 13:35 13:45 WBC 15.4 H (3.8-10.6) k/uL RBC 5.06 (4.30-5.90) m/uL Hgb 14.5 (13.0-17.5) gm/dL Hct 46.0 (39.0-53.0) % MCV 90.9 (80.0-100.0) fL MCH 28.6 (25.0-35.0) pg MCHC 31.5 (31.0-37.0) g/dL RDW 13.8 (11.5-15.5) % Plt Count 204 (150-450) k/uL MPV 9.1 Neutrophils % 85 % Lymphocytes % 12 % Monocytes % 2 % Eosinophils % 0 % Basophils % 0 % Neutrophils # 13.0 H (1.3-7.7) k/uL Lymphocytes # 1.8 (1.0-4.8) k/uL Monocytes # 0.4 (0-1.0) k/uL Eosinophils # 0.1 (0-0.7) k/uL Basophils # 0.0 (0-0.2) k/uL Sodium (137-145) mmol/L Potassium (3.5-5.1) mmol/L Chloride (98-107) mmol/L Carbon Dioxide (22-30) mmol/L Anion Gap mmol/L BUN (9-20) mg/dL Creatinine (0.66-1.25) mg/dL Est GFR (CKD-EPI)AfAm (>60 ml/min/1.73 sqM) Est GFR (CKD-EPI)NonAf (>60 ml/min/1.73 sqM) Glucose (74-99) mg/dL Lactic Ac Sepsis Rflx Y Plasma Lactic Acid Rivas (0.7-2.0) mmol/L Calcium (8.4-10.2) mg/dL Phosphorus (2.5-4.5) mg/dL Magnesium (1.6-2.3) mg/dL Total Bilirubin (0.2-1.3) mg/dL AST (17-59) U/L ALT (4-49) U/L Alkaline Phosphatase (38-126) U/L Troponin I (0.000-0.034) ng/mL NT-Pro-B Natriuret Pep pg/mL Total Protein (6.3-8.2) g/dL Albumin (3.5-5.0) g/dL Urine Color Yellow Urine Appearance Clear (Clear) Urine pH 5.0 (5.0-8.0) Ur Specific [place] 1.025 (1.001-1.035) Urine Protein Trace H (Negative) Urine Glucose (UA) Trace H (Negative) Urine Ketones Negative (Negative) Urine Blood Negative (Negative) Urine Nitrite Negative (Negative) Urine Bilirubin Negative (Negative) Urine Urobilinogen <2.0 (<2.0) mg/dL Ur Leukocyte Esterase Negative (Negative) - EKG Data -: EKG Interpreted by Me Disposition Clinical Impression: Dizziness Disposition: HOME SELF-CARE Condition: Good Instructions (If sedation given, give patient instructions): Dizziness (ED) Is patient prescribed a controlled substance at d/c from ED?: No Referrals: Vinny Matthews DO [Primary Care Provider] - 1-2 days Time of Disposition: 12:40
[2024-06-04 11:24] LABS: AST 39 U/L (17-59); African American GFR (CKD) 85 (>60 ml/min/1.73 sqM); Albumin 4.5 g/dL (3.5-5.0); Alkaline Phosphatase 65 U/L (38-126); Anion Gap 16 mmol/L; Blood Urea Nitrogen 27 mg/dL (9-20); Carbon Dioxide 18 mmol/L (22-30); Chloride 104 mmol/L (98-107); Glucose 246 mg/dL (74-99); Magnesium 1.6 mg/dL (1.6-2.3); Non-African American GFR(CKD) 73 (>60 ml/min/1.73 sqM); Phosphorus 3.1 mg/dL (2.5-4.5); Sodium 138 mmol/L (137-145); Total Bilirubin 0.6 mg/dL (0.2-1.3); Total Protein 7.4 g/dL (6.3-8.2)
[2024-06-04 11:33] LABS: NT-Pro-B-Type Natriuretic Pept 303 pg/mL
[2024-06-04] MEDS ORDERED: diphenhydrAMINE 50 MG/ML 1 ML VIAL IVP STA (11:33)
[2024-06-04] MEDS ORDERED: FAMOTIDINE 20 MG/2 ML VIAL IV STA (11:33)
[2024-06-04] MEDS ORDERED: methylPREDNISolone SOD SUCCI 125 MG/2 ML VIAL IV STA (11:33)
[2024-06-04] MEDS: SODIUM CHLORIDE 0.9% 1,000 ML IV STA (11:35)
[2024-06-04 11:39] LABS: ALT 49 U/L (4-49)
[2024-06-04] MEDS ORDERED: LORazepam 2 MG/ML INJ IV STA (11:49)
[2024-06-04] MEDS ORDERED: SODIUM CHLORIDE 0.9% 1,000 ML IV STA (11:49)
[2024-06-04 13:54] LABS: Basophils % (A) 0 %; Eosinophils # (A) 0.1 k/uL (0-0.7); Eosinophils % (A) 0 %; HGB 14.5 gm/dL (13.0-17.5); Lymphocytes # (A) 1.8 k/uL (1.0-4.8); Lymphocytes % (A) 12 %; MCH 28.6 pg (25.0-35.0); MCHC 31.5 g/dL (31.0-37.0); MCV 90.9 fL (80.0-100.0); Mean Platelet Volume 9.1; Monocytes # (A) 0.4 k/uL (0-1.0); Monocytes % (A) 2 %; Neutrophils % (A) 85 %; Platelet Count 204 k/uL (150-450); RBC 5.06 m/uL (4.30-5.90); RDW 13.8 % (11.5-15.5); WBC 15.4 k/uL (3.8-10.6)
[2024-06-04 14:01] LABS: Appearance,Urine Clear (Clear); Bilirubin,Urine Negative (Negative); Blood,Urine Negative (Negative); Color,Urine Yellow; Glucose,Urine (UA) Trace (Negative); Ketones,Urine Negative (Negative); Leukocyte Esterase,Urine Negative (Negative); Nitrite,Urine Negative (Negative); Protein,Urine Trace (Negative); Specific Gravity,Urine 1.025 (1.001-1.035); Urobilinogen,Urine <2.0 mg/dL (<2.0)
[2024-06-04 14:42] VITALS: BP 131/76; PULSE 68; RESP 18; TEMP 98
== END 2024-06-04 14:42 | disposition home or self-care (01) ==
LOC: EC 10:42
DX: R42 Dizziness and giddiness (principal); Z86.73 Personal history of transient ischemic attack (TIA), and cerebral infarction without residual deficits; Z87.891 Personal history of nicotine dependence
CPT/HCPCS: 36415; 80053; 81003; 83605; 83735; 83880; 84100; 84484; 85025; 93005; 96360; 99284

== ENCOUNTER → 2024-06-12 | Outpatient (CLI) | payer MEDICARE, OTHER ==
[2024-06-12 12:55] LABS: Basophils % (A) 0 %; Eosinophils % (A) 0 %; HCT 48.6 % (39.0-53.0); HGB 15.4 gm/dL (13.0-17.5); Lymphocytes # (A) 1.6 k/uL (1.0-4.8); Lymphocytes % (A) 14 %; MCH 28.9 pg (25.0-35.0); MCHC 31.8 g/dL (31.0-37.0); MCV 90.8 fL (80.0-100.0); Mean Platelet Volume 8.7; Monocytes # (A) 0.2 k/uL (0-1.0); Monocytes % (A) 2 %; Neutrophils # (A) 9.5 k/uL (1.3-7.7); Neutrophils % (A) 83 %; Platelet Count 244 k/uL (150-450); RBC 5.35 m/uL (4.30-5.90); RDW 13.7 % (11.5-15.5); WBC 11.5 k/uL (3.8-10.6)
[2024-06-12 13:11] LABS: AST 37 U/L (17-59); African American GFR (CKD) 84 (>60 ml/min/1.73 sqM); Albumin 4.8 g/dL (3.5-5.0); Albumin/Globulin Ratio 1.5; Alkaline Phosphatase 65 U/L (38-126); Anion Gap 16 mmol/L; Blood Urea Nitrogen 23 mg/dL (9-20); Carbon Dioxide 21 mmol/L (22-30); Chloride 100 mmol/L (98-107); Globulin 3.1 g/dL; Glucose 208 mg/dL (74-99); Magnesium 1.5 mg/dL (1.6-2.3); Non-African American GFR(CKD) 73 (>60 ml/min/1.73 sqM); Potassium 4.5 mmol/L (3.5-5.1); Sodium 137 mmol/L (137-145); Total Bilirubin 0.6 mg/dL (0.2-1.3); Total Protein 7.9 g/dL (6.3-8.2)
[2024-06-12 13:21] LABS: ALT 53 U/L (4-49)
--- NOTE | 2024-06-12 14:30 | CT ---
EXAMINATION TYPE: CT ChestAbdPelvis w con DATE OF EXAM: 06/12/2024 COMPARISON: CT abdomen and pelvis dated 03/03/[address] chest dated 06/06/2023 CLINICAL INDICATION: Male, 73 years old with history of R93.89 ABNORMAL FINDINGS BODY STRUCTURE CT DLP: 1459.20 mGycm Automated exposure control for dose reduction was used. CONTRAST: CT scan of the chest, abdomen and pelvis is performed with Oral Contrast and with IV Contrast, patien t injected with 100 mL of Isovue 300. FINDINGS: CT chest: There are mild emphysematous changes particularly within the upper lobes. There is no suspicious lung mass or nodule. There is no abnormal airspace/consolidative density or abnormal interstitial density. There is no pleural effusion, pleural thickening or pneumothorax. The great vessels and chest are normal there is no mediastinal, hilar or axillary adenopathy. As seen on prior studies, there are multiple innumerable sclerotic lesions scattered throughout the dorsal spine, sternum and pelvis consistent with metastatic disease. CT abdomen and pelvis: Gallbladder is normal without distention, pericholecystic fluid, wall thickening or gallstone. There is no biliary ductal dilatation. There is no focal mass or organomegaly involving the liver, pancreas, spleen or adrenal glands.. There is no solid renal mass or hydronephrosis. There is a 2.8 cm aneurysmal dilatation of the infrarenal abdominal aorta.. The bowel loops are normal in caliber and there is no dilatation or obstruction. No inflammatory hemphill ges identified in the bowel wall and mesentery. There is no free intracranial air or fluid. There is no pelvic mass or adenopathy. There is no free fluid within the pelvis. There is a grade 1 anterolisthesis of L4 on L5 secondary to bilateral spondylolysis of L4 IMPRESSION: 1. Multiple sclerotic densities scattered throughout the skeleton. There are no pathological fracture s. The findings are suspicious for metastatic bone disease. 2. No acute cardiopulmonary disease. 3. No acute changes within the abdomen or pelvis. 4. Stable 2.8 cm aneurysmal dilatation of the infrarenal abdominal aorta. 5. Grade 1 anterolisthesis of L4 on L5 secondary to bilateral spondylolysis of L4. [facility], , 06/12/2024 2:27 PM
[2024-06-12 20:02] LABS: % Iron Saturation 22.15 (15.00-50.00); Chol/HDL Ratio 8.79 Ratio; Ferritin 85.9 ng/mL (22.0-322.0); Iron 99 UG/DL (65-175); LDL Cholesterol,Calculated 213.9 mg/dL (0.0-131.0); Prostate Specific Antigen 0.94 ng/mL (0.000-6.500); Total Iron Binding Capacity 447 UG/DL (228-460)
== END | disposition home or self-care (01) ==
LOC: RADCTMAIN 11:52
PROVIDERS: ATTEND Internal Medicine Hematology & Oncology
DX: E11.9 Type 2 diabetes mellitus without complications (principal); I10 Essential (primary) hypertension; M47.816 Spondylosis without myelopathy or radiculopathy, lumbar region; I71.43 Infrarenal abdominal aortic aneurysm, without rupture; M43.16 Spondylolisthesis, lumbar region; R93.89 Abnormal findings on diagnostic imaging of other specified body structures
CPT/HCPCS: 84153; 80061; 80053; 84443; 82607; 82728; 82746; 83540; 83550; 83735; 85025; 82306; 83036; 71260; 74177; 36415; Q9967

== ENCOUNTER → 2024-06-12 | Outpatient (CLI) | payer MEDICARE, OTHER ==
--- NOTE | 2024-06-24 00:32 | HM ---
HOLTER MONITOR REPORT STUDY: A 3-day Holter. Predominant rhythm is sinus with heart rate ranging from 46 to 110 beats per minute with average heart rate of 68 beats per minute. There was no evidence of any significant ventricular or supraventricular ectopic beats. There was no evidence of any significant bradycardia. This is an unremarkable 72-hour Holter recording with predominant sinus rhythm. LELO / JORGE: [id number] /
== END | disposition home or self-care (01) ==
LOC: RADECHMAIN 12:01
PROVIDERS: ATTEND Internal Medicine
DX: R42 Dizziness and giddiness (principal)
CPT/HCPCS: 93225

== ENCOUNTER → 2024-06-18 | Outpatient (CLI) | payer MEDICARE, OTHER ==
--- NOTE | 2024-06-18 10:43 | CT ---
EXAMINATION TYPE: CT brain wo con DATE OF EXAM: 06/18/2024 10:27 AM COMPARISON: 06/14/2023e. CLINICAL INDICATION: Male, 73 years old with history of R42 lightheaded, Dizziness, lightheaded TECHNIQUE: Brain: Axial CT images of the brain were obtained with coronal and sagittal reformats created and rev iewed. Contrast used: None. Oral contrast used: None. CT DLP: 1055.60 mGycm, Automated exposure control for dose reduction was used. FINDINGS: Brain: Extra-axial spaces: No abnormal extra-axial fluid collections. Ventricular system: Within normal limits Cerebral parenchyma: Remote injury right frontal lobe new from 06/14/2023 No acute intraparenchymal hem orrhage or mass effect. The funk-white junction is well differentiated. Cerebellum: Unremarkable. Mass effect: No evidence of midline shift. Intracranial vasculature: Atherosclerotic calcifications of the intracranial vessels. Soft tissues: Normal. Calvarium/osseous structures: No depressed skull fracture. Paranasal sinuses and mastoid air cells: Mild scattered paranasal sinus disease. Visualized orbits: Bilateral aphakia IMPRESSION: 1. No acute intracranial process. 2. New from 06/14/2023 right frontal lobe and right posterior frontal lobe injuries. [facility], , 06/18/2024 10:41 AM
== END | disposition home or self-care (01) ==
LOC: RADCTMAIN 10:01
PROVIDERS: ATTEND Internal Medicine
DX: R42 Dizziness and giddiness (principal)
CPT/HCPCS: 70450

== ENCOUNTER → 2024-07-18 | Outpatient (CLI) | payer MEDICARE, OTHER ==
--- NOTE | 2024-07-18 19:18 | CA ---
Transthoracic Echo Report Name: Duncan Odell Age: 73 Gender: M : 1950 Exam Date: 07/18/2024 11:33 Exam Location: [facility] Ht (in): 67 Wt (lb): 200 Ordering Physician: Vinny Matthews DO Attending/Referring Phys: Anjum Hahn MD [employer] Maria Del Carmen Kaur RDCS Procedure CPT: Indications: R 42 DIZZINESS AND GIDDINESS Cardiac Hx: Technical Quality: Fair Contrast 1: Total Dose (mL): Contrast 2: Total Dose (mL): MEASUREMENTS (Male / Female) Normal Values 2D ECHO LV Diastolic Diameter PLAX 4.6 cm 4.2 - 5.9 / 3.9 - 5.3 cm LV Systolic Diameter PLAX 4.1 cm IVS Diastolic Thickness 1.2 cm 0.6 - 1.0 / 0.6 - 0.9 cm LVPW Diastolic Thickness 1.0 cm 0.6 - 1.0 / 0.6 - 0.9 cm LV Relative Wall Thickness 0.5 LVOT Diameter 2.2 cm LV Diastolic Volume MOD BP 113.4 cm??? 67 - 155 / 56 - 104 cm??? LV Systolic Volume MOD BP 62.6 cm??? 22 - 58 / 19 - 49 cm??? LV Ejection Fraction MOD BP 44.8 % >= 55 % LV Cardiac Index MOD BP 1524.0 cm???/min???m??? LV Diastolic Volume MOD 4C 119.5 cm??? LV Systolic Volume MOD 4C 57.7 cm??? LV Ejection Fraction MOD 4C 51.7 % LV Cardiac Index MOD 4C 1854.4 cm???/min???m??? LV Diastolic Length 4C 7.5 cm LV Systolic Length 4C 6.4 cm LV Diastolic Volume MOD 2C 100.2 cm??? LV Systolic Volume MOD 2C 42.7 cm??? LV Ejection Fraction MOD 2C 57.4 % LV Cardiac Index MOD 2C 1726.1 cm???/min???m??? LV Diastolic Length 2C 7.0 cm LV Systolic Length 2C 5.5 cm LA Volume 50.7 cm??? 18 - 58 / 22 - 52 cm??? LA Volume Index 24.2 cm???/m??? 16 - 28 cm???/m??? DOPPLER AV Peak Velocity 89.0 cm/s AV Peak Gradient 3.2 mmHg AV Mean Velocity 70.8 cm/s AV Mean Gradient 2.1 mmHg AV Velocity Time Integral 19.4 cm LVOT Peak Velocity 67.2 cm/s LVOT Peak Gradient 1.8 mmHg LVOT Velocity Time Integral 15.5 cm LVOT Stroke Volume 58.3 cm??? LVOT Stroke Volume Index 28.8 ml/m??? LVOT Cardiac Index 1750.4 cm???/min???m??? AV Area Cont Eq vti 3.0 cm??? AV Area Cont Eq pk 2.8 cm??? MV Area PHT 4.4 cm??? Mitral E Point Velocity 55.0 cm/s Mitral A Point Velocity 73.3 cm/s Mitral E to A Ratio 0.7 MV Deceleration Time 170.9 ms TR Peak Velocity 250.3 cm/s TR Peak Gradient 25.1 mmHg FINDINGS Left Ventricle Mildly increased left ventricular wall thickness. Normal left ventricular systolic function with no obvious regional wall motion abnormalities. No obvious regional wall motion abnormalities. Grade 1 diastolic dysfunction. Right Ventricle Normal right ventricular size and function. Right ventricular systolic pressure within normal limits. Right Atrium Normal right atrial size. Left Atrium Normal left atrial size. Mitral Valve Structurally normal mitral valve. Mild mitral regurgitation. Aortic Valve Trileaflet aortic valve. No aortic valve stenosis or regurgitation. Tricuspid Valve Structurally normal tricuspid valve. Mild tricuspid regurgitation. Pulmonic Valve Structurally normal pulmonic valve. Trace pulmonic regurgitation. Pericardium Trace pericardial effusion. Aorta Normal size aortic root and proximal ascending aorta. CONCLUSIONS Normal biventricular systolic function Trace pericardial effusion Previewed by: Dr. Anam Alexis MD (Electronically Signed) Final Date: 18 July 2024 19:17
== END | disposition home or self-care (01) ==
LOC: RADECHMAIN 10:36
PROVIDERS: ATTEND Internal Medicine
DX: I31.39 Other pericardial effusion (noninflammatory) (principal); R42 Dizziness and giddiness
CPT/HCPCS: 93306